=== PATIENT | female | born 1960 | race American Indian/Alaskan Native ===

== ENCOUNTER 2016-11-06 11:50 | Emergency (ER) | payer OTHER ==
[2016-11-06] MEDS ORDERED: Ketorolac 60 MG/2 ML SDV IM ONE (12:06)
[2016-11-06 12:09] VITALS: BP 165/88
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
== END 2016-11-06 13:15 | disposition home or self-care (01) ==
LOC: MW.ED 11:50
DX: M54.2 Cervicalgia (principal); R51 Headache; I10 Essential (primary) hypertension; F17.210 Nicotine dependence, cigarettes, uncomplicated; Z79.899 Other long term (current) drug therapy
CPT/HCPCS: 70450; 72125; 96372; 99283; J1885; 99284

== ENCOUNTER 2017-02-04 14:55 | Emergency (ER) | payer SELFPAY ==
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
[2017-02-04] MEDS ORDERED: Sodium Chloride 0.9% 1,000 ML IV ONE (15:04)
[2017-02-04 15:35] LABS: CHLORIDE,CL 110 mmol/L (98-110); SODIUM,NA 142 mmol/L (136-146)
[2017-02-04 17:23] VITALS: BP 104/57
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
== END 2017-02-04 17:23 | disposition home or self-care (01) ==
LOC: MW.ED 14:55
DX: S20.212A Contusion of left front wall of thorax, initial encounter (principal); I10 Essential (primary) hypertension; F32.9 Major depressive disorder, single episode, unspecified; Z98.890 Other specified postprocedural states; Z79.899 Other long term (current) drug therapy; W50.1XXA Accidental kick by another person, initial encounter
CPT/HCPCS: 36415; 70450; 71101; 80053; 84703; 85025; 96360; 99285; G0480; J7040; 99284

== ENCOUNTER 2019-12-19 08:16 | Emergency (ER) | payer OTHER ==
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
[2019-12-19] MEDS ORDERED: Sodium Chloride 0.9% 1,000 ML IV ONE (08:50)
[2019-12-19] MEDS ORDERED: Morphine 10 MG/ML Syringe IVPUSH ONE (08:59)
[2019-12-19] MEDS ORDERED: Ondansetron 4 MG/2 ML SDV IVPUSH ONE (08:59)
[2019-12-19 09:55] LABS: BLOOD UREA NITROGEN,BUN 8 mg/dL (7.0-18.0); CARBON DIOXIDE,CO2 23.1 mmol/L (21.0-32.0); CHLORIDE,CL 104 mmol/L (98-107); GLUCOSE RANDOM 96 mg/dL (74-106); POTASSIUM,K 4.1 mmol/L (3.5-5.1); SODIUM,NA 138 mmol/L (136-145)
[2019-12-19] MEDS ORDERED: Iopamidol 755 Mg/ML 100 ML Bottle IVPUSH STA (10:33)
--- NOTE | 2019-12-19 10:56 | CT ---
CT chest Technique: Multiple axial sections through the chest were obtained. Reconstructed coronal and sagittal images were obtained. Intravenous contrast was utilized. Comparison: No prior chest imaging. Findings: Aorta shows contrast enhancement with no aneurysm. Pulmonary arteries appear within normal limits. Mediastinum shows no hematoma. No adenopathy is seen. No pericardial fluid is seen. No pulmonary contusions are seen. Small nodule is noted within the right middle lobe measuring about 4 mm. Recommendations as noted above. Minimal dependent atelectasis is seen posteriorly. Bone window settings were reviewed. No definite acute abnormality is seen within the visualized bones. Impression: 1. 4 mm nodule within the right middle lobe. If patient is a non-smoker, this can be ignored. If patient is a smoker, recommend noncontrast chest CT study in one year. 2. Other findings as noted above. Nothing acute is appreciated. Diagnostic code #3 This report was dictated in MDT
--- NOTE | 2019-12-19 10:56 | CT ---
CT abdomen and pelvis Technique: Multiple axial sections were obtained from above the dome of the diaphragm inferiorly through the pubic symphysis. Intravenous contrast was utilized. No oral contrast has been given. Comparison: No prior abdominal imaging is available. Findings: Small nodule noted within the right middle lobe measuring 3 mm. Liver contains no focal abnormality. Spleen appears within normal limits. Adrenal glands show no abnormality. Pancreas appears within normal limits. Gallbladder contains no calcified gallstones. Kidneys show symmetric contrast enhancement. Small cyst is noted within the mid left kidney measuring 5 mm. Aorta shows no aneurysm. No retroperitoneal adenopathy or mesenteric abnormalities are seen. Appendix is seen which is normal. No pelvic mass or adenopathy is seen. No free fluid or inflammatory change is seen. Scattered diverticuli are seen within the colon. No inflammatory change of diverticulitis is seen. Bone window settings were reviewed. Slight degenerative change is noted within the spine. No acute osseous finding is appreciated. Impression: 1. Findings as noted above. 2. Nothing acute is appreciated on CT study of the abdomen and pelvis. Diagnostic code #2 This report was dictated in MDT
[2019-12-19 12:18] VITALS: BP 127/77; PULSE 84
== END 2019-12-19 12:15 | disposition home or self-care (01) ==
LOC: MW.ED 08:16
DX: S20.212A Contusion of left front wall of thorax, initial encounter (principal); I10 Essential (primary) hypertension; F32.9 Major depressive disorder, single episode, unspecified; F17.210 Nicotine dependence, cigarettes, uncomplicated; Z79.899 Other long term (current) drug therapy; Y04.2XXA Assault by strike against or bumped into by another person, initial encounter
CPT/HCPCS: 36415; 71260; 74177; 80053; 84484; 85025; 93005; 96374; 96375; 99284; J2270; J2405; J7030; Q9967; 99283

== ENCOUNTER 2020-03-14 00:17 | Emergency (ER) | payer SELFPAY ==
--- NOTE | 2020-03-14 01:05 | EDM.PDOCBH ---
ED HPI GENERAL MEDICAL PROBLEM - General Chief Complaint: Behavioral/Psych Stated Complaint: SHORT OF BREATH Time Seen by Provider: 03/14/20 01:04 Source of Information: Reports: Patient, EMS History Limitations: Reports: Intoxication - History of Present Illness INITIAL COMMENTS - FREE TEXT/NARRATIVE: 59F presents for EtOH intox and possible SI. Patient is intoxicated. She admits to heavy drinking tonight. Recent d/c [facility] for SI. She states that she does have thoughts of hurting herself but denies plan. Onset: Today - Related Data Allergies Allergy/AdvReac Type Severity Reaction Status Date / Time No Known Allergies Allergy Verified 03/14/20 00:27 Home Meds: Home Meds FLUoxetine [PROzac] 20 mg PO DAILY 05/01/16 [History] Lisinopril 10 mg PO DAILY 11/06/16 [History] Meloxicam 7.5 mg PO BID #20 tablet 11/06/16 [Rx] Multivitamin [Multivitamins] 11/06/16 [History] Orphenadrine [Norflex] 100 mg PO BID #20 tab.er 11/06/16 [Rx] methocarbamoL [Robaxin] 500 mg PO TID #20 tablet 12/19/19 [Rx] Past Medical History HEENT History: Reports: None Cardiovascular History: Reports: Hypertension Respiratory History: Reports: None Gastrointestinal History: Reports: None Genitourinary History: Reports: None 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: 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 History: Reports: Fracture, None Neurological History: Reports: None Psychiatric History: Reports: Depression, None Endocrine/Metabolic History: Reports: None Hematologic History: Reports: None Immunologic History: Reports: None Oncologic (Cancer) History: Reports: None Dermatologic History: Reports: None - Infectious Disease History Infectious Disease History: Reports: Chicken Pox - Past Surgical History Head Surgeries/Procedures: Reports: None HEENT Surgical History: Reports: None, Tonsillectomy Female Surgical History: Reports: Section 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 Surgical History: Reports: Other (See Below), ORIF Other 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 Surgeries/Procedures:: left ankle Social & Family History - Family History Family Medical History: Noncontributory - Caffeine Use Caffeine Use: Reports: Coffee ED ROS GENERAL - Review of Systems Review Of Systems: Comprehensive ROS is negative, except as noted in HPI. ED EXAM, BEHAVIORAL HEALTH - Physical Exam Exam: See Below Exam Limited By: Intoxication General Appearance: Alert, No Apparent Distress Head: Atraumatic Respiratory/Chest: No Respiratory Distress, Lungs Clear, Normal Breath Sounds, No Accessory Muscle Use, Chest Non-Tender, Other (speaking in full sentences) Cardiovascular: Normal Peripheral Pulses, Regular Rate, Rhythm GI/Abdominal: Soft, Non-Tender Extremities: Normal Inspection Neurological: Alert, Normal Mood/Affect Psychiatric: Alert, Normal Affect Skin Exam: Warm, Dry COURSE, BEHAVIORAL HEALTH COMP - Course Vital Signs: Last Vital Signs Temp 96.9 F 03/14/20 00:28 Pulse 94 03/14/20 00:28 Resp 16 03/14/20 00:28 BP 164/86 H 03/14/20 00:28 Pulse Ox 94 L 03/14/20 00:28 Orders, Labs, Meds: Medications Discontinued Medications Generic Name Dose Route Start Last Admin Trade Name Freq PRN Reason Stop Dose Admin Ibuprofen 600 mg 03/14/20 01:46 03/14/20 01:51 Motrin PO 03/14/20 01:47 600 mg ONETIME ONE Administration Re-Assessment/Re-Exam: 0230: patient is clinically improving, walks without gait abnormality. She states she wants to go home. She notes that she drank heavily and thinks this may have caused her to say "silly things" when she was drunk, but currently denies wanting to hurt herself and denies SI. She agrees to go home in hte care of her daughter. She is reasonable and was encouraged to return to ED for any thoughts of self harm. Departure - Departure Time of Disposition: 02:31 Disposition: Home, Self-Care 01 Condition: Good Clinical Impression: Alcohol intoxication Qualifiers: Complication of substance-induced condition: uncomplicated Qualified Code(s): F10.920 - Alcohol use, unspecified with intoxication, uncomplicated - Discharge Information *PRESCRIPTION DRUG MONITORING PROGRAM REVIEWED*: Not Applicable *COPY OF PRESCRIPTION DRUG MONITORING REPORT IN PATIENT OSCAR: Not Applicable Instructions: Binge-Drinking Information, Adult Referrals: PCP,None [Primary Care Provider] - ([facility] [address] [place] [id number] ) Forms: ED Department Discharge Additional Instructions: The following information is given to patients seen in the emergency department who are being discharged to home. This information is to outline your options for follow-up care. We provide all patients seen in our emergency department with a follow-up referral. The need for follow-up, as well as the timing and circumstances, are variable depending upon the specifics of your emergency department visit. If you don't have a primary care physician on staff, we will provide you with a referral. We always advise you to contact your personal physician following an emergency department visit to inform them of the circumstance of the visit and for follow-up with them and/or the need for any referrals to a consulting specialist. The emergency department will also refer you to a specialist when appropriate. This referral assures that you have the opportunity for follow-up care with a specialist. All of these measure are taken in an effort to provide you with optimal care, which includes your follow-up. Under all circumstances we always encourage you to contact your private physician who remains a resource for coordinating your care. When calling for follow-up care, please make the office aware that this follow-up is from your recent emergency room visit. If for any reason you are refused follow-up, please contact the [facility] Emergency Department at and asked to speak to the emergency department charge nurse. Sepsis Event Note (ED) - Evaluation Sepsis Screening Result: No Definite Risk - Focused Exam Vital Signs: Vital Signs Temp Pulse Resp BP Pulse Ox 03/14/20 00:28 96.9 F 94 16 164/86 H 94 L
[2020-03-14] MEDS ORDERED: Ibuprofen 600 MG Tab PO ONE (01:46)
[2020-03-14 03:13] VITALS: BP 165/75; PULSE 53
== END 2020-03-14 02:45 | disposition home or self-care (01) ==
LOC: MW.ED 00:17
DX: F10.120 Alcohol abuse with intoxication, uncomplicated (principal); I10 Essential (primary) hypertension; F32.9 Major depressive disorder, single episode, unspecified; Z79.899 Other long term (current) drug therapy
CPT/HCPCS: 99285; A9270; 99283

== ENCOUNTER 2020-07-14 08:29 | Observation (INO) | payer SELFPAY ==
[2020-07-14] MEDS ORDERED: Lactated Ringers 1,000 ML IV ONE (08:43)
[2020-07-14] MEDS ORDERED: Sodium Chloride 0.9% 2.5 ML Syringe FLUSH PRN (08:43)
[2020-07-14] MEDS ORDERED: Ondansetron 4 MG/2 ML SDV IVPUSH ONE (08:46)
--- NOTE | 2020-07-14 08:46 | EDM.PDOC ---
ED HPI GENERAL MEDICAL PROBLEM - General Chief Complaint: Abdominal Pain Stated Complaint: VOMITTING, NAUSEA Time Seen by Provider: 07/14/20 08:42 Source of Information: Reports: Patient History Limitations: Reports: No Limitations - History of Present Illness INITIAL COMMENTS - FREE TEXT/NARRATIVE: 59-year-old female presents with nonbilious vomiting and diarrhea since 10pm la st night. Associated with abdominal pain. Her abdominal pain is diffuse, constant, aching sensation, radiates to the back, no alleviating or exacerbating factors. She also notes dry cough for 2 weeks, along with fevers, chills, diffuse myalgia, generalized malaise. Patient denies chest pain, shortness of breath, focal numbness or weakness. ROS: A 10-point review of systems, other than pertinent positives and negatives as stated per HPI, is otherwise negative Past medical history: No additional pertinent history Past Surgical history: No additional pertinent history Social history: No additional pertinent history Family history: No additional pertinent history PHYSICAL EXAM General: AOx4, GCS = 15, moderate distress HEENT: dry mucous membrane Neck: supple, no meningismus, no Kernig or Brudzinski Cardiac: S1S2 tachycardia Respiratory: CTAB, no crackles or rales, no wheezing Abdomen: Soft, mild diffuse tenderness, no rebound or guarding, nondistended, no pulsatile mass. Back: nontender 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: NVI distally, no deformity Neuro: No focal deficits, CN 2 - 12 WNL. 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: 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 History: Reports: Fracture, None Neurological History: Reports: None Psychiatric History: Reports: Depression, None Endocrine/Metabolic History: Reports: None Hematologic History: Reports: None Immunologic History: Reports: None Oncologic (Cancer) History: Reports: None Dermatologic History: Reports: None - Infectious Disease History Infectious Disease History: Reports: Chicken Pox - Past Surgical History Head Surgeries/Procedures: Reports: None HEENT Surgical History: Reports: None, Tonsillectomy Female Surgical History: Reports: Section 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 Surgical History: Reports: Other (See Below), ORIF Other 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 Surgeries/Procedures:: left ankle Social & Family History - Family History Family Medical History: No Pertinent Family History - Caffeine Use Caffeine Use: Reports: Coffee ED ROS GENERAL - Review of Systems Review Of Systems: See Below (see dictation) ED EXAM, GENERAL - Physical Exam Exam: See Below (see dictation) #1 Interpretation EKG Interpretation Comments: Heart rate = 101 bpm, sinus tach, normal QRS interval, no STEMI. EKG and rhythm strip interpreted by me at 0839 Course - Vital Signs Last Recorded V/S: Last Vital Signs Temp 95.5 F L 07/14/20 08:33 Pulse 89 07/14/20 10:07 Resp 17 07/14/20 10:07 BP 130/69 07/14/20 10:07 Pulse Ox 95 07/14/20 10:07 - Orders/Labs/Meds Orders: Active Orders 24 hr Category Date Time Status Patient Status [ADT] Routine ADT 07/14/20 11:34 Ordered Nurse Communication: Isolation [RC] ASDIRECTED Care 07/14/20 10:37 Active C-REACTIVE PROTEIN [CHEM] Stat Lab 07/14/20 11:05 Received D-DIMER QUANTITATIVE [COAG] Stat Lab 07/14/20 11:05 Received FERRITIN [CHEM] Routine Lab 07/14/20 11:05 Received LACTATE DEHYDROGENASE,LDH [CHEM] Stat Lab 07/14/20 11:05 Received PROCALCITONIN [REF] Stat Lab 07/14/20 11:05 Received URINALYSIS W/MICROSCOPIC [UA W/MICROSCOPIC] [URIN] Stat Lab 07/14/20 11:11 Received Piperacillin/Tazobactam [Piperacil-Tazobact] 4.5 gm Med 07/14/20 10:47 Active Sodium Chloride 0.9% [Normal Saline] 100 ml IV ONETIME Sodium Chloride 0.9% [Saline Flush] Med 07/14/20 08:43 Active 10 ml FLUSH ASDIRECTED PRN Sodium Chloride 0.9% [Saline Flush] Med 07/14/20 08:43 Active 2.5 ml FLUSH ASDIRECTED PRN Vancomycin [Vancocin] 1 gm Med 07/14/20 11:00 Active Sodium Chloride 0.9% [Normal Saline (AdvBag)] 250 ml IV Q12H Isolation [COMM] Stat Oth 07/14/20 10:35 Active Saline Lock Insert [OM.PC] Stat Oth 07/14/20 08:43 Ordered Medication Orders Piperacillin Sod/Tazobactam (Sod 4.5 gm/ Sodium Chloride) 100 mls @ 100 mls/hr IV ONETIME ONE Stop: 07/14/20 11:46 Last Admin: 07/14/20 11:34 Dose: 100 mls/hr Documented by: TERRY Vancomycin HCl 1 gm/ Sodium (Chloride) 250 mls @ 250 mls/hr IV Q12H TAM Sodium Chloride (Saline Flush) 2.5 ml FLUSH ASDIRECTED PRN PRN Reason: Keep Vein Open Sodium Chloride (Saline Flush) 10 ml FLUSH ASDIRECTED PRN PRN Reason: Keep Vein Open Last Admin: 07/14/20 08:56 Dose: 10 ml Documented by: Admin: 07/14/20 08:55 Dose: 10 ml Documented by: TERRY Labs: Laboratory Tests 07/14/20 07/14/20 07/14/20 Range/Units 08:50 08:50 08:50 WBC 7.79 (4.0-11.0) K/uL RBC 5.07 (4.30-5.90) M/uL Hgb 16.6 H (12.0-16.0) g/dL Hct 47.9 H (36.0-46.0) % MCV 94.5 (80.0-98.0) fL MCH 32.7 H (27.0-32.0) pg MCHC 34.7 (31.0-37.0) g/dL RDW Std Deviation 43.2 (28.0-62.0) fl RDW Coeff of Nacho 13 (11.0-15.0) % Plt Count 183 (150-400) K/uL MPV 10.90 (7.40-12.00) fL Neut % (Auto) 66.8 (48.0-80.0) % Lymph % (Auto) 23.1 (16.0-40.0) % [place] % (Auto) 8.3 (0.0-15.0) % Eos % (Auto) 1.4 (0.0-7.0) % Baso % (Auto) 0.4 (0.0-1.5) % Neut # (Auto) 5.2 (1.4-5.7) K/uL Lymph # (Auto) 1.8 (0.6-2.4) K/uL [place] # (Auto) 0.7 (0.0-0.8) K/uL Eos # (Auto) 0.1 (0.0-0.7) K/uL Baso # (Auto) 0.0 (0.0-0.1) K/uL Nucleated RBC % 0.0 /100WBC Nucleated RBCs # 0 K/uL INR APTT (18.6-31.3) SEC Lactate (0.20-2.00) mmol/L Sodium 134 L (136-145) mmol/L Potassium 3.8 (3.5-5.1) mmol/L Chloride 100 (98-107) mmol/L Carbon Dioxide 18.2 L (21.0-32.0) mmol/L BUN 8 (7.0-18.0) mg/dL Creatinine 0.7 (0.6-1.0) mg/dL Est Cr Clr Drug Dosing 66.91 mL/min Estimated GFR (MDRD) > 60.0 ml/min Glucose 126 H (74-106) mg/dL Calcium 9.7 (8.5-10.1) mg/dL Magnesium 2.2 (1.8-2.4) mg/dL Total Bilirubin 1.0 (0.2-1.0) mg/dL AST 30 (15-37) IU/L ALT 30 (14-63) IU/L Alkaline Phosphatase 165 H (46-116) U/L Troponin I < 0.050 (0.000-0.056) ng/mL Total Protein 8.2 (6.4-8.2) g/dL Albumin 3.4 (3.4-5.0) g/dL Globulin 4.8 H (2.6-4.0) g/dL Albumin/Globulin Ratio 0.7 L (0.9-1.6) Lipase 83 (73-393) U/L SARS-CoV-2 RNA (GALINDO) (NEGATIVE) 07/14/20 07/14/20 07/14/20 Range/Units 09:04 11:05 11:05 WBC (4.0-11.0) K/uL RBC (4.30-5.90) M/uL Hgb (12.0-16.0) g/dL Hct (36.0-46.0) % MCV (80.0-98.0) fL MCH (27.0-32.0) pg MCHC (31.0-37.0) g/dL RDW Std Deviation (28.0-62.0) fl RDW Coeff of Nacho (11.0-15.0) % Plt Count (150-400) K/uL MPV (7.40-12.00) fL Neut % (Auto) (48.0-80.0) % Lymph % (Auto) (16.0-40.0) % [place] % (Auto) (0.0-15.0) % Eos % (Auto) (0.0-7.0) % Baso % (Auto) (0.0-1.5) % Neut # (Auto) (1.4-5.7) K/uL Lymph # (Auto) (0.6-2.4) K/uL [place] # (Auto) (0.0-0.8) K/uL Eos # (Auto) (0.0-0.7) K/uL Baso # (Auto) (0.0-0.1) K/uL Nucleated RBC % /100WBC Nucleated RBCs # K/uL INR 1.00 APTT 27.8 (18.6-31.3) SEC Lactate 1.0 (0.20-2.00) mmol/L Sodium (136-145) mmol/L Potassium (3.5-5.1) mmol/L Chloride (98-107) mmol/L Carbon Dioxide (21.0-32.0) mmol/L BUN (7.0-18.0) mg/dL Creatinine (0.6-1.0) mg/dL Est Cr Clr Drug Dosing mL/min Estimated GFR (MDRD) ml/min Glucose (74-106) mg/dL Calcium (8.5-10.1) mg/dL Magnesium (1.8-2.4) mg/dL Total Bilirubin (0.2-1.0) mg/dL AST (15-37) IU/L ALT (14-63) IU/L Alkaline Phosphatase (46-116) U/L Troponin I (0.000-0.056) ng/mL Total Protein (6.4-8.2) g/dL Albumin (3.4-5.0) g/dL Globulin (2.6-4.0) g/dL Albumin/Globulin Ratio (0.9-1.6) Lipase (73-393) U/L SARS-CoV-2 RNA (GALINDO) POSITIVE H (NEGATIVE) Meds: Medications Generic Name Dose Route Start Last Admin Trade Name Freq PRN Reason Stop Dose Admin Piperacillin Sod/Tazobactam 100 mls @ 100 mls/hr 07/14/20 10:47 07/14/20 11:34 Sod 4.5 gm/ Sodium Chloride IV 07/14/20 11:46 100 mls/hr ONETIME ONE Administration Vancomycin HCl 1 gm/ Sodium 250 mls @ 250 mls/hr 07/14/20 11:00 Chloride IV Q12H TAM Sodium Chloride 2.5 ml 07/14/20 08:43 Saline Flush FLUSH ASDIRECTED PRN Keep Vein Open Sodium Chloride 10 ml 07/14/20 08:43 07/14/20 08:56 Saline Flush FLUSH 10 ml ASDIRECTED PRN Administration Keep Vein Open Discontinued Medications Generic Name Dose Route Start Last Admin Trade Name Freq PRN Reason Stop Dose Admin Fentanyl 50 mcg 07/14/20 09:02 07/14/20 09:06 Fentanyl IVPUSH 07/14/20 09:03 50 mcg ONETIME ONE Administration Lactated Ringer's 1,000 mls @ 999 mls/hr 07/14/20 08:43 07/14/20 08:55 Ringers, Lactated IV 07/14/20 09:43 999 mls/hr .BOLUS ONE Administration Ondansetron HCl 4 mg 07/14/20 08:46 07/14/20 08:55 Zofran IVPUSH 07/14/20 08:47 4 mg ONETIME ONE Administration Vancomycin HCl 1 dose 07/14/20 10:47 Pharmacy To Dose - Vancomycin .XX 07/14/20 10:48 ONETIME ONE - Re-Assessments/Exams Free Text/Narrative Re-Assessment/Exam: 07/14/20 10:[address] Strong, she has a low suspicion for appendicitis but will consult. She thinks the presentation is likely secondary to Covid enteritis. She still recommends IV Zosyn. Will order IV Zosyn. 07/14/20 11:[address] Kidd, who agrees to admit patient. The hospitalist's documentation supersedes all other documentation on this patient with regard to any conflicts or discrepancies from this point forward. Any emergency conditions have been treated to the ability of the ED prior to admission. Departure - Departure Time of Disposition: 11:34 Disposition: Admitted As Inpatient 68 Condition: Good Clinical Impression: COVID-19, Enteritis - Discharge Information *PRESCRIPTION DRUG MONITORING PROGRAM REVIEWED*: Not Applicable *COPY OF PRESCRIPTION DRUG MONITORING REPORT IN PATIENT OSCAR: Not Applicable Referrals: Nati Draper MD [Primary Care Provider] - Forms: ED Department Discharge Sepsis Event Note (ED) - Evaluation Sepsis Screening Result: No Definite Risk - Focused Exam Vital Signs: Vital Signs Temp Pulse Resp BP Pulse Ox 07/14/20 10:07 89 17 130/69 95 07/14/20 09:37 90 17 147/85 H 95 07/14/20 08:33 95.5 F L 108 H 18 118/77 96 - My Orders Last 24 Hours: My Active Orders 07/14/20 08:43 Sodium Chloride 0.9% [Saline Flush] 10 ml FLUSH ASDIRECTED PRN Sodium Chloride 0.9% [Saline Flush] 2.5 ml FLUSH ASDIRECTED PRN Saline Lock Insert [OM.PC] Stat 07/14/20 10:35 Isolation [COMM] Stat 07/14/20 10:37 Nurse Communication: Isolation [RC] ASDIRECTED 07/14/20 10:47 Piperacillin/Tazobactam [Piperacil-Tazobact] 4.5 gm Sodium Chloride 0.9% [Normal Saline] 100 ml IV ONETIME 07/14/20 11:00 Vancomycin [Vancocin] 1 gm Sodium Chloride 0.9% [Normal Saline (AdvBag)] 250 ml IV Q12H 07/14/20 11:05 C-REACTIVE PROTEIN [CHEM] Stat D-DIMER QUANTITATIVE [COAG] Stat FERRITIN [CHEM] Routine LACTATE DEHYDROGENASE,LDH [CHEM] Stat PROCALCITONIN [REF] Stat 07/14/20 11:11 URINALYSIS W/MICROSCOPIC [UA W/MICROSCOPIC] [URIN] Stat 07/14/20 11:34 Patient Status [ADT] Routine - Assessment/Plan Last 24 Hours: My Active Orders 07/14/20 08:43 Sodium Chloride 0.9% [Saline Flush] 10 ml FLUSH ASDIRECTED PRN Sodium Chloride 0.9% [Saline Flush] 2.5 ml FLUSH ASDIRECTED PRN Saline Lock Insert [OM.PC] Stat 07/14/20 10:35 Isolation [COMM] Stat 07/14/20 10:37 Nurse Communication: Isolation [RC] ASDIRECTED 07/14/20 10:47 Piperacillin/Tazobactam [Piperacil-Tazobact] 4.5 gm Sodium Chloride 0.9% [Normal Saline] 100 ml IV ONETIME 07/14/20 11:00 Vancomycin [Vancocin] 1 gm Sodium Chloride 0.9% [Normal Saline (AdvBag)] 250 ml IV Q12H 07/14/20 11:05 C-REACTIVE PROTEIN [CHEM] Stat D-DIMER QUANTITATIVE [COAG] Stat FERRITIN [CHEM] Routine LACTATE DEHYDROGENASE,LDH [CHEM] Stat PROCALCITONIN [REF] Stat 07/14/20 11:11 URINALYSIS W/MICROSCOPIC [UA W/MICROSCOPIC] [URIN] Stat 07/14/20 11:34 Patient Status [ADT] Routine
[2020-07-14] MEDS: Sodium Chloride 0.9% 10 ML Syringe FLUSH PRN ×2 (08:55→08:56)
[2020-07-14] MEDS ORDERED: fentaNYL 50 MCG/ML SDV IVPUSH ONE ×2 (09:02→11:45)
[2020-07-14 09:25] LABS: BLOOD UREA NITROGEN,BUN 8 mg/dL (7.0-18.0); CARBON DIOXIDE,CO2 18.2 mmol/L (21.0-32.0); CHLORIDE,CL 100 mmol/L (98-107); GLUCOSE RANDOM 126 mg/dL (74-106); LIPASE 83 U/L (73-393); POTASSIUM,K 3.8 mmol/L (3.5-5.1); SODIUM,NA 134 mmol/L (136-145)
--- NOTE | 2020-07-14 10:23 | CT ---
INDICATION: Abdominal pain, nausea, vomiting and diarrhea. Probable COVID COMPARISON: None TECHNIQUE: CT examination of the abdomen and pelvis was performed without intravenous contrast. Thin section axial images were obtained from the lung bases through the pubic symphysis. Oral contrast was not administered. Please note that all CT scans at this facility use dose modulation, iterative reconstruction, and/or weight-based dosing when appropriate to reduce radiation dose to as low as reasonably achievable. FINDINGS: LUNG BASES: Patchy multifocal ground-glass opacities. The findings are likely related to COVID lung disease.Heart size normal. The lung bases LIVER/BILIARY SYSTEM:The liver is normal in size and configuration given the lack of intravenous contrast. There is no visible focal mass and there is no intra- or extra hepatic biliary ductal dilatation.The gall bladder appears normal. ADRENALS: Normal non-contrast appearance KIDNEYS, URETERS and BLADDER:The kidneys appear normal given lack of intravenous contrast. No visible mass, calculus or hydronephrosis. The ureters and bladder as visualized appear normal. SPLEEN:Normal non-contrast appearance. PANCREAS: Normal non-contrast appearance. RETROPERITONEUM and MESENTERY: There is no mass, adenopathy or aortic aneurysm. GASTROINTESTINAL SYSTEM: There is no evidence of bowel obstruction. There is thickening of much of the ileum with streaky inflammatory changes in the mesentery. There is also thickening and inflammatory change of the terminal ileum. The findings represent ileitis of uncertain etiology. This could be related to Crohn`s disease though involvement of such a large portion of the ileum is unusual. As a separate finding, the appendix appears normal at the base but is thickened more distally. The bases best seen on axial image number 84 and 85 and the tip that appears dilated is best seen on axial image 89 through 95. This could represent appendicitis as well. PELVIS: There is moderate free fluid which is presumably secondary to the ileal inflammatory process primarily.. OSSEOUS STRUCTURES and ABDOMINAL WALL: There is an age-appropriate appearance of the osseous structures.No significant abdominal wall defect. OTHER: No free fluid or free air. IMPRESSION: 1. Chest pains findings likely related to COVID lung disease. 2. Long segment ileal inflammatory process. This most affects the terminal ileum. While this is an ileitis pattern, the long segment disease is somewhat unusual for Crohn`s disease. The exact underlying etiology is uncertain. 3. As a 3rd finding, there are findings suspicious for acute uncomplicated appendicitis as discussed above. 4. I discussed the above findings at 10:15 a.m. on July 14, [address] Abdon Lozano Please note that all CT scans at this facility use dose modulation, iterative reconstruction, and/or weight-based dosing when appropriate to reduce radiation dose to as low as reasonably achievable. Dictated by David Gallegos MD @ Jul 14 2020 10:07AM Signed by Dr. David Gallegos @ Jul 14 2020 10:20AM
--- NOTE | 2020-07-14 10:33 | CR ---
Indication: Abdominal pain, nausea, vomiting and cough. Technique: A single view of the chest was acquired Comparison: A chest radiograph dated January 08, 2017 as well as the abdomen and pelvic CT of the same day. Findings: Heart size normal. Patchy airspace opacities primarily laterally at the left base. This corresponds to the CT and is likely due to COVID related lung disease. No pleural effusion or pneumothorax. Old right clavicle fracture Impression: Airspace opacities primarily laterally at the left base likely related to COVID lung disease. This appearance was also noted on a contemporaneously CT. Dictated by David Gallegos MD @ Jul 14 2020 10:30AM Signed by Dr. David Gallegos @ Jul 14 2020 10:32AM
[2020-07-14] MEDS ORDERED: Piperacillin/Tazobactam 4.5 GM in Sodium Chloride 0.9% 100 ML IV ONE (10:47)
[2020-07-14] MEDS ORDERED: fentaNYL 50 MCG/ML SDV ONE (11:45)
--- NOTE | 2020-07-14 11:47 | PCM.HP.2 ---
<Leonard Mei - Last Filed: 07/14/20 15:28> H&P History of Present Illness - General Date of Service: 07/14/20 Admit Problem/Dx: Admission Diagnosis/Problem Admission Diagnosis/Problem Enteritis - History of Present Illness Initial Comments - Free Text/Narative: 59 year old female admitted for enteritis. Patient presented to the ED today with abdominal pain, nausea, vomiting and diarrhea. Patient states that she developed crampy sharp pains across her abdomen yesterday evening. She also has been having bouts of diarrhea, and states bright red blood per rectum with bowel movements. Denies fever, chills states general fatigue and a productive cough. Patient has been in contact with her daughter and ex- both of whom are Covid positive. Patient states past medical history of hypertension. Patient is a 1 to 2 pack/week smoker. WBC on admission 7.7, with elevated ferritin and CRP. Patient is COVID positive. CT abdomen pelvis was performed that showed Inflammation of the terminal ileum, with possible uncomplicated appendicitis. Patient treated with IV fluids, vancomycin, Zosyn, currently n.p.o. will advance diet as tolerated, full dose Lovenox 65 mg BID, PPI, encourage incentive spirometry. Patient is currently at 96% oxygen saturation on room air and thus does not require remdesivir and dexamethasone. We will adjust treatment as necessary based on patient symptoms. abdomen Pain Score (Numeric/FACES): 5 - Related Data Allergies/Adverse Reactions: Allergies Allergy/AdvReac Type Severity Reaction Status Date / Time codeine Allergy Hives Verified 07/14/20 13:35 oxycodone Allergy Hives Verified 07/14/20 13:35 Home Medications: Home Meds Enalapril Maleate 20 mg PO DAILY 07/14/20 [History] Past Medical History HEENT History: Reports: None Cardiovascular History: Reports: Hypertension Respiratory History: Reports: None Gastrointestinal History: Reports: None Genitourinary History: Reports: None I O PSYCHOLOGIST History: Reports: 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 History: Reports: Fracture Neurological History: Reports: None Psychiatric History: Reports: Depression Endocrine/Metabolic History: Reports: None Hematologic History: Reports: None Immunologic History: Reports: None Oncologic (Cancer) History: Reports: None Dermatologic History: Reports: None - Infectious Disease History Infectious Disease History: Reports: Chicken Pox, Shingles - Past Surgical History Head Surgeries/Procedures: Reports: None HEENT Surgical History: Reports: None, Tonsillectomy Female Surgical History: Reports: Section 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 Surgical History: Reports: Other (See Below), ORIF Other 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 Surgeries/Procedures:: left ankle Social & Family History - Family History Family Medical History: No Pertinent Family History - Tobacco Use Tobacco Use Status *Q: Current Every Day Tobacco User Years of Tobacco use: 1 Packs/Tins Daily: 2 - Caffeine Use Caffeine Use: Reports: Coffee - Recreational Drug Use Recreational Drug Use: No H&P Review of Systems - Review of Systems: Review Of Systems: See Below General: Reports: Weakness, Fatigue. Denies: Fever Pulmonary: Reports: Cough. Denies: Shortness of Breath, Wheezing Cardiovascular: Denies: Chest Pain Gastrointestinal: Reports: Abdominal Pain, Decreased Appetite. Denies: Nausea, Vomiting 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: Denies: Back Pain Psychiatric: Denies: Confusion, Depression Neurological: Denies: Confusion, Dizziness Exam - Exam Exam: See Below - Vital Signs Vital Signs: Last Vital Signs Temp 95.5 F L 07/14/20 08:33 Pulse 89 07/14/20 10:07 Resp 17 07/14/20 10:07 BP 130/69 07/14/20 10:07 Pulse Ox 95 07/14/20 10:07 Weight: 65 kg - Exam Quality Assessment: No: Supplemental Oxygen General: Oriented Lungs: Clear to Auscultation, Normal Respiratory Effort Cardiovascular: Regular Rate, Regular Rhythm GI/Abdominal Exam: Normal Bowel Sounds, Soft, Tender Extremities: No Pedal Edema Neuro Extensive - Mental Status: Alert, Oriented x3 - Patient Data Lab Results Last 24 hrs: Laboratory Results - last 24 hr 07/14/20 07/14/20 07/14/20 Range/Units 08:50 08:50 08:50 WBC 7.79 (4.0-11.0) K/uL RBC 5.07 (4.30-5.90) M/uL Hgb 16.6 H (12.0-16.0) g/dL Hct 47.9 H (36.0-46.0) % MCV 94.5 (80.0-98.0) fL MCH 32.7 H (27.0-32.0) pg MCHC 34.7 (31.0-37.0) g/dL RDW Std Deviation 43.2 (28.0-62.0) fl RDW Coeff of Nacho 13 (11.0-15.0) % Plt Count 183 (150-400) K/uL MPV 10.90 (7.40-12.00) fL Neut % (Auto) 66.8 (48.0-80.0) % Lymph % (Auto) 23.1 (16.0-40.0) % [place] % (Auto) 8.3 (0.0-15.0) % Eos % (Auto) 1.4 (0.0-7.0) % Baso % (Auto) 0.4 (0.0-1.5) % Neut # (Auto) 5.2 (1.4-5.7) K/uL Lymph # (Auto) 1.8 (0.6-2.4) K/uL [place] # (Auto) 0.7 (0.0-0.8) K/uL Eos # (Auto) 0.1 (0.0-0.7) K/uL Baso # (Auto) 0.0 (0.0-0.1) K/uL Nucleated RBC % 0.0 /100WBC Nucleated RBCs # 0 K/uL INR APTT (18.6-31.3) SEC Lactate (0.20-2.00) mmol/L Sodium 134 L (136-145) mmol/L Potassium 3.8 (3.5-5.1) mmol/L Chloride 100 (98-107) mmol/L Carbon Dioxide 18.2 L (21.0-32.0) mmol/L BUN 8 (7.0-18.0) mg/dL Creatinine 0.7 (0.6-1.0) mg/dL Est Cr Clr Drug Dosing 66.91 mL/min Estimated GFR (MDRD) > 60.0 ml/min Glucose 126 H (74-106) mg/dL Calcium 9.7 (8.5-10.1) mg/dL Magnesium 2.2 (1.8-2.4) mg/dL Total Bilirubin 1.0 (0.2-1.0) mg/dL AST 30 (15-37) IU/L ALT 30 (14-63) IU/L Alkaline Phosphatase 165 H (46-116) U/L Troponin I < 0.050 (0.000-0.056) ng/mL Total Protein 8.2 (6.4-8.2) g/dL Albumin 3.4 (3.4-5.0) g/dL Globulin 4.8 H (2.6-4.0) g/dL Albumin/Globulin Ratio 0.7 L (0.9-1.6) Lipase 83 (73-393) U/L Urine Color Urine Appearance Urine pH (5.0-8.0) Ur Specific [place] (1.001-1.035) Urine Protein (NEGATIVE) mg/dL Urine Glucose (UA) (NEGATIVE) mg/dL Urine Ketones (NEGATIVE) mg/dL Urine Occult Blood (NEGATIVE) Urine Nitrite (NEGATIVE) Urine Bilirubin (NEGATIVE) Urine Urobilinogen (<2.0) EU/dL Ur Leukocyte Esterase (NEGATIVE) Urine RBC (0-2/HPF) Urine WBC (0-5/HPF) Ur Epithelial Cells (NONE-FEW) Urine Bacteria (NEGATIVE) Urine Mucus (NONE-MOD) SARS-CoV-2 RNA (GALINDO) (NEGATIVE) 07/14/20 07/14/20 07/14/20 Range/Units 09:04 11:05 11:05 WBC (4.0-11.0) K/uL RBC (4.30-5.90) M/uL Hgb (12.0-16.0) g/dL Hct (36.0-46.0) % MCV (80.0-98.0) fL MCH (27.0-32.0) pg MCHC (31.0-37.0) g/dL RDW Std Deviation (28.0-62.0) fl RDW Coeff of Nacho (11.0-15.0) % Plt Count (150-400) K/uL MPV (7.40-12.00) fL Neut % (Auto) (48.0-80.0) % Lymph % (Auto) (16.0-40.0) % [place] % (Auto) (0.0-15.0) % Eos % (Auto) (0.0-7.0) % Baso % (Auto) (0.0-1.5) % Neut # (Auto) (1.4-5.7) K/uL Lymph # (Auto) (0.6-2.4) K/uL [place] # (Auto) (0.0-0.8) K/uL Eos # (Auto) (0.0-0.7) K/uL Baso # (Auto) (0.0-0.1) K/uL Nucleated RBC % /100WBC Nucleated RBCs # K/uL INR 1.00 APTT 27.8 (18.6-31.3) SEC Lactate 1.0 (0.20-2.00) mmol/L Sodium (136-145) mmol/L Potassium (3.5-5.1) mmol/L Chloride (98-107) mmol/L Carbon Dioxide (21.0-32.0) mmol/L BUN (7.0-18.0) mg/dL Creatinine (0.6-1.0) mg/dL Est Cr Clr Drug Dosing mL/min Estimated GFR (MDRD) ml/min Glucose (74-106) mg/dL Calcium (8.5-10.1) mg/dL Magnesium (1.8-2.4) mg/dL Total Bilirubin (0.2-1.0) mg/dL AST (15-37) IU/L ALT (14-63) IU/L Alkaline Phosphatase (46-116) U/L Troponin I (0.000-0.056) ng/mL Total Protein (6.4-8.2) g/dL Albumin (3.4-5.0) g/dL Globulin (2.6-4.0) g/dL Albumin/Globulin Ratio (0.9-1.6) Lipase (73-393) U/L Urine Color Urine Appearance Urine pH (5.0-8.0) Ur Specific [place] (1.001-1.035) Urine Protein (NEGATIVE) mg/dL Urine Glucose (UA) (NEGATIVE) mg/dL Urine Ketones (NEGATIVE) mg/dL Urine Occult Blood (NEGATIVE) Urine Nitrite (NEGATIVE) Urine Bilirubin (NEGATIVE) Urine Urobilinogen (<2.0) EU/dL Ur Leukocyte Esterase (NEGATIVE) Urine RBC (0-2/HPF) Urine WBC (0-5/HPF) Ur Epithelial Cells (NONE-FEW) Urine Bacteria (NEGATIVE) Urine Mucus (NONE-MOD) SARS-CoV-2 RNA (GALINDO) POSITIVE H (NEGATIVE) 07/14/20 Range/Units 11:11 WBC (4.0-11.0) K/uL RBC (4.30-5.90) M/uL Hgb (12.0-16.0) g/dL Hct (36.0-46.0) % MCV (80.0-98.0) fL MCH (27.0-32.0) pg MCHC (31.0-37.0) g/dL RDW Std Deviation (28.0-62.0) fl RDW Coeff of Nacho (11.0-15.0) % Plt Count (150-400) K/uL MPV (7.40-12.00) fL Neut % (Auto) (48.0-80.0) % Lymph % (Auto) (16.0-40.0) % [place] % (Auto) (0.0-15.0) % Eos % (Auto) (0.0-7.0) % Baso % (Auto) (0.0-1.5) % Neut # (Auto) (1.4-5.7) K/uL Lymph # (Auto) (0.6-2.4) K/uL [place] # (Auto) (0.0-0.8) K/uL Eos # (Auto) (0.0-0.7) K/uL Baso # (Auto) (0.0-0.1) K/uL Nucleated RBC % /100WBC Nucleated RBCs # K/uL INR APTT (18.6-31.3) SEC Lactate (0.20-2.00) mmol/L Sodium (136-145) mmol/L Potassium (3.5-5.1) mmol/L Chloride (98-107) mmol/L Carbon Dioxide (21.0-32.0) mmol/L BUN (7.0-18.0) mg/dL Creatinine (0.6-1.0) mg/dL Est Cr Clr Drug Dosing mL/min Estimated GFR (MDRD) ml/min Glucose (74-106) mg/dL Calcium (8.5-10.1) mg/dL Magnesium (1.8-2.4) mg/dL Total Bilirubin (0.2-1.0) mg/dL AST (15-37) IU/L ALT (14-63) IU/L Alkaline Phosphatase (46-116) U/L Troponin I (0.000-0.056) ng/mL Total Protein (6.4-8.2) g/dL Albumin (3.4-5.0) g/dL Globulin (2.6-4.0) g/dL Albumin/Globulin Ratio (0.9-1.6) Lipase (73-393) U/L Urine Color DARK YELLOW Urine Appearance CLEAR Urine pH 6.5 (5.0-8.0) Ur Specific [place] 1.010 (1.001-1.035) Urine Protein NEGATIVE (NEGATIVE) mg/dL Urine Glucose (UA) NEGATIVE (NEGATIVE) mg/dL Urine Ketones TRACE H (NEGATIVE) mg/dL Urine Occult Blood NEGATIVE (NEGATIVE) Urine Nitrite NEGATIVE (NEGATIVE) Urine Bilirubin SMALL H (NEGATIVE) Urine Urobilinogen 0.2 (<2.0) EU/dL Ur Leukocyte Esterase TRACE H (NEGATIVE) Urine RBC 0-2 (0-2/HPF) Urine WBC 0-2 (0-5/HPF) Ur Epithelial Cells FEW (NONE-FEW) Urine Bacteria FEW (NEGATIVE) Urine Mucus LIGHT (NONE-MOD) SARS-CoV-2 RNA (GALINDO) (NEGATIVE) Result Diagrams: 07/14/20 08:50 07/14/20 08:50 Sepsis Event Note - Evaluation Sepsis Screening Result: No Definite Risk - Focused Exam Vital Signs: Vital Signs Temp Pulse Resp BP Pulse Ox 07/14/20 10:07 89 17 130/69 95 07/14/20 09:37 90 17 147/85 H 95 07/14/20 08:33 95.5 F L 108 H 18 118/77 96 - Problem List (1) COVID-19 SNOMED Code(s): 686792233 ICD Code: U07.1 - COVID-19 Status: Acute Current Visit: Yes (2) Enteritis SNOMED Code(s): 11383301 ICD Code: K52.9 - NONINFECTIVE GASTROENTERITIS AND COLITIS, UNSPECIFIED Status: Acute Current Visit: Yes (3) Right ankle sprain SNOMED Code(s): 46313676 Status: Acute Current Visit: No Problem List Initiated/Reviewed/Updated: Yes Orders Last 24hrs: Active Orders 24 hr Category Date Time Status Patient Status [ADT] Routine ADT 07/14/20 11:34 Active Nurse Communication: Isolation [RC] ASDIRECTED Care 07/14/20 10:37 Active NPO Now [Nothing per Oral Now Diet] [DIET] Diet 07/14/20 Lunch Ordered C-REACTIVE PROTEIN [CHEM] Stat Lab 07/14/20 11:05 Received D-DIMER QUANTITATIVE [COAG] Stat Lab 07/14/20 11:05 Received FERRITIN [CHEM] Routine Lab 07/14/20 11:05 Received LACTATE DEHYDROGENASE,LDH [CHEM] Stat Lab 07/14/20 11:05 Received PROCALCITONIN [REF] Stat Lab 07/14/20 11:05 Received Sodium Chloride 0.9% [Saline Flush] Med 07/14/20 08:43 Active 10 ml FLUSH ASDIRECTED PRN Sodium Chloride 0.9% [Saline Flush] Med 07/14/20 08:43 Active 2.5 ml FLUSH ASDIRECTED PRN Vancomycin [Vancocin] 1 gm Med 07/14/20 11:00 Active Sodium Chloride 0.9% [Normal Saline (AdvBag)] 250 ml IV Q12H Isolation [COMM] Stat Oth 07/14/20 10:35 Active Saline Lock Insert [OM.PC] Stat Oth 07/14/20 08:43 Ordered Medication Orders Vancomycin HCl 1 gm/ Sodium (Chloride) 250 mls @ 250 mls/hr IV Q12H TAM Sodium Chloride (Saline Flush) 2.5 ml FLUSH ASDIRECTED PRN PRN Reason: Keep Vein Open Last Admin: 07/14/20 11:38 Dose: 2.5 ml Documented by: TERRY Sodium Chloride (Saline Flush) 10 ml FLUSH ASDIRECTED PRN PRN Reason: Keep Vein Open Last Admin: 07/14/20 08:56 Dose: 10 ml Documented by: Admin: 07/14/20 08:55 Dose: 10 ml Documented by: TERRY Assessment/Plan Comment:: Enteritis- LR 125 mls/hr, vancomycin, Zosyn Q6, NPO, diet advanced as tolerated, full dose Lovenox 65 mg BID, PPI COVID-patient is currently 96% oxygen saturation on room air, thus does not require remdesivir, dexamethasone. Will adjust as needed based on patient's symptoms. We will continue to encourage incentive spirometry. <Marcello Kidd - Last Filed: 07/15/20 13:00> H&P History of Present Illness - General Admit Problem/Dx: Admission Diagnosis/Problem Admission Diagnosis/Problem Enteritis Exam - Vital Signs Vital Signs: Last Vital Signs Temp 36.6 C 07/15/20 08:59 Pulse 75 07/15/20 08:59 Resp 18 07/15/20 08:59 BP 121/62 07/15/20 08:59 Pulse Ox 94 L 07/15/20 08:59 - Patient Data Lab Results Last 24 hrs: Laboratory Results - last 24 hr 07/14/20 07/15/20 07/15/20 Range/Units 11:05 05:39 05:39 WBC 5.52 (4.0-11.0) K/uL RBC 3.82 L (4.30-5.90) M/uL Hgb 12.2 (12.0-16.0) g/dL Hct 37.1 (36.0-46.0) % MCV 97.1 (80.0-98.0) fL MCH 31.9 (27.0-32.0) pg MCHC 32.9 (31.0-37.0) g/dL RDW Std Deviation 44.3 (28.0-62.0) fl RDW Coeff of Nacho 13 (11.0-15.0) % Plt Count 171 (150-400) K/uL MPV 10.90 (7.40-12.00) fL Neut % (Auto) 54.5 (48.0-80.0) % Lymph % (Auto) 27.2 (16.0-40.0) % [place] % (Auto) 14.7 (0.0-15.0) % Eos % (Auto) 2.9 (0.0-7.0) % Baso % (Auto) 0.7 (0.0-1.5) % Neut # (Auto) 3.0 (1.4-5.7) K/uL Lymph # (Auto) 1.5 (0.6-2.4) K/uL [place] # (Auto) 0.8 (0.0-0.8) K/uL Eos # (Auto) 0.2 (0.0-0.7) K/uL Baso # (Auto) 0.0 (0.0-0.1) K/uL Nucleated RBC % 0.0 /100WBC Nucleated RBCs # 0 K/uL Sodium 140 (136-145) mmol/L Potassium 3.4 L (3.5-5.1) mmol/L Chloride 107 (98-107) mmol/L Carbon Dioxide 21.5 (21.0-32.0) mmol/L BUN 11 (7.0-18.0) mg/dL Creatinine 1.2 H (0.6-1.0) mg/dL Est Cr Clr Drug Dosing 39.03 mL/min Estimated GFR (MDRD) 46.3 ml/min Glucose 83 (74-106) mg/dL Calcium 8.2 L (8.5-10.1) mg/dL Total Bilirubin 0.9 (0.2-1.0) mg/dL AST 23 (15-37) IU/L ALT 21 (14-63) IU/L Alkaline Phosphatase 105 (46-116) U/L Total Protein 6.0 L (6.4-8.2) g/dL Albumin 2.4 L (3.4-5.0) g/dL Globulin 3.6 (2.6-4.0) g/dL Albumin/Globulin Ratio 0.7 L (0.9-1.6) Procalcitonin <0.05 (<0.10) ng/mL Result Diagrams: 07/15/20 05:39 07/15/20 05:39 Panfilo Results Last 24 hrs: Microbiology 07/15/20 00:10 C. difficile Antigen & Toxins A,B - Final Stool / Feces 07/15/20 00:10 Stool Occult Blood (PANFILO) - Final Stool / Feces Sepsis Event Note - Focused Exam Vital Signs: Vital Signs Temp Pulse Resp BP BP Pulse Ox 07/15/20 08:59 36.6 C 75 18 121/62 94 L 07/15/20 08:50 121/62 07/15/20 03:00 36.1 C 68 18 135/60 95 Orders Last 24hrs: Active Orders 24 hr Category Date Time Status Influenza Vaccine Charge [RC] .DISCHARGE Care 07/14/20 15:05 Active Oxygen Therapy [RC] PRN Care 07/14/20 13:00 Active VTE/DVT Education [RC] PER UNIT ROUTINE Care 07/14/20 13:00 Active Vital Signs [RC] Q4H Care 07/14/20 13:00 Active Clear Liquid Diet [DIET] Diet 07/15/20 Breakfast Active VANCOMYCIN TROUGH [CHEM] Routine Lab 07/17/20 00:01 Ordered Enalapril [Vasotec] Med 07/14/20 15:00 Active 20 mg PO DAILY Enoxaparin [Lovenox] Med 07/15/20 21:00 Active 40 mg SUBCUT BID Lactated Ringers [Ringers, Lactated] 1,000 ml Med 07/14/20 13:00 Active IV ASDIRECTED Morphine Med 07/14/20 14:04 Active 4 mg IVPUSH Q4H PRN Ondansetron [Zofran] Med 07/14/20 22:47 Active 4 mg IVPUSH Q6H PRN Pantoprazole [ProTONIX IV] 40 mg Med 07/14/20 15:30 Active Sodium Chloride 0.9% [Normal Saline] 10 ml IV Q24H Piperacillin/Tazobactam [Piperacil-Tazobact] 3.375 gm Med 07/14/20 20:00 Active Sodium Chloride 0.9% [Normal Saline] 50 ml IV Q6H Vancomycin [Vancocin] 1 gm Med 07/16/20 01:00 Active Sodium Chloride 0.9% [Normal Saline (AdvBag)] 250 ml IV Q24H Resuscitation Status Routine Resus Stat 07/14/20 23:11 Ordered Medication Orders Enalapril Maleate (Vasotec) 20 mg PO DAILY [facility] Last Admin: 07/15/20 08:50 Dose: 20 mg Documented by: Admin: 07/14/20 14:50 Dose: 20 mg Documented by: YENNY Enoxaparin Sodium (Lovenox) 40 mg SUBCUT BID [facility] Lactated Ringer's (Ringers, Lactated) 1,000 mls @ 125 mls/hr IV ASDIRECTED TAM Last Admin: 07/14/20 23:03 Dose: 125 mls/hr Documented by: Infusion: 07/14/20 21:50 Dose: 125 mls/hr Documented by: Admin: 07/14/20 13:50 Dose: 125 mls/hr Documented by: YENNY Piperacillin Sod/Tazobactam (Sod 3.375 gm/ Sodium Chloride) 50 mls @ 100 mls/hr IV Q6H [facility] Last Admin: 07/15/20 08:47 Dose: 100 mls/hr Documented by: Infusion: 07/15/20 02:18 Dose: 100 mls/hr Documented by: Admin: 07/15/20 01:48 Dose: 100 mls/hr Documented by: Infusion: 07/14/20 20:43 Dose: 100 mls/hr Documented by: Admin: 07/14/20 20:13 Dose: 100 mls/hr Documented by: TORIE Pantoprazole Sodium 40 mg/ (Sodium Chloride) 10 mls @ 300 mls/hr IV Q24H TAM Last Admin: 07/14/20 16:20 Dose: 300 mls/hr Documented by: YENNY Vancomycin HCl 1 gm/ Sodium (Chloride) 250 mls @ 250 mls/hr IV Q24H TAM Morphine Sulfate (Morphine) 4 mg IVPUSH Q4H PRN PRN Reason: Pain (severe 7-10) Last Admin: 07/14/20 23:04 Dose: 4 mg Documented by: Admin: 07/14/20 14:34 Dose: 4 mg Documented by: YENNY Ondansetron HCl (Zofran) 4 mg IVPUSH Q6H PRN PRN Reason: Nausea/Vomiting Last Admin: 07/14/20 23:03 Dose: 4 mg Documented by: TORIE Sodium Chloride (Saline Flush) 2.5 ml FLUSH ASDIRECTED PRN PRN Reason: Keep Vein Open Last Admin: 07/14/20 11:38 Dose: 2.5 ml Documented by: TERRY Sodium Chloride (Saline Flush) 10 ml FLUSH ASDIRECTED PRN PRN Reason: Keep Vein Open Last Admin: 07/14/20 08:56 Dose: 10 ml Documented by: Admin: 07/14/20 08:55 Dose: 10 ml Documented by: TERRY Assessment/Plan Comment:: I have seen and evaluated the patient and agree with the residents note unless specified in my note
--- NOTE | 2020-07-14 13:24 | PCM.CONS ---
H&P History of Present Illness - General Date of Service: 07/14/20 Admit Problem/Dx: Admission Diagnosis/Problem Admission Diagnosis/Problem Enteritis Source of Information: Patient History Limitations: Reports: No Limitations - History of Present Illness Initial Comments - Free Text/Narative: Patient is a 59 year old female who presents today with abdominal pain nausea vomiting and diarrhea. The patient states that this started last evening. She developed waves of pain across her lower abdomen. It was crampy and sharp. She developed loose watery stools and denies melena and hematochezia. She states she had chills as well as diaphoresis. She had never had a colonoscopy. She has never had any symptoms like this. She had no changes in her bowel habits prior to last evening. She has been in contact with her daughter and ex- who are both COVID positive. The patient was wearing a mask around them, but not quarantining. She is a 1-2 pack a day smoker. She also complains of a cough for >1 week that is productive. This has been associated with malaise and diffuse body aches. She was tachycardic on arrival to the ER. This improved with IV fluids. She states her last BM was right before arriving at the ER this am. Her WBC was normal with no evidence of a left shift. She was COVID positive. A CT abdomen pelvis was performed that showed distal small bowel swelling and inflammation as well as terminal ileitis and a dilated appearing appendix. abdomen Pain Score (Numeric/FACES): 5 - Related Data Allergies/Adverse Reactions: Allergies Allergy/AdvReac Type Severity Reaction Status Date / Time oxycodone Allergy Hives Verified 07/14/20 08:57 Home Medications: Home Meds Analapril 07/14/20 [History] Past Medical History HEENT History: Reports: None Cardiovascular History: Reports: Hypertension Respiratory History: Reports: None Gastrointestinal History: Reports: None Genitourinary History: Reports: None DOOR TRIMMER History: Reports: 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 History: Reports: Fracture Neurological History: Reports: None Psychiatric History: Reports: Depression Endocrine/Metabolic History: Reports: None Hematologic History: Reports: None Immunologic History: Reports: None Oncologic (Cancer) History: Reports: None Dermatologic History: Reports: None - Infectious Disease History Infectious Disease History: Reports: Chicken Pox, Shingles - Past Surgical History Head Surgeries/Procedures: Reports: None HEENT Surgical History: Reports: None, Tonsillectomy Female Surgical History: Reports: Section 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 Surgical History: Reports: Other (See Below), ORIF Other 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 Surgeries/Procedures:: left ankle Social & Family History - Family History Family Medical History: No Pertinent Family History - Tobacco Use Tobacco Use Status *Q: Current Every Day Tobacco User Years of Tobacco use: 1 Packs/Tins Daily: 2 - Caffeine Use Caffeine Use: Reports: Coffee - Recreational Drug Use Recreational Drug Use: No H&P Review of Systems - Review of Systems: Review Of Systems: Comprehensive ROS is negative, except as noted in HPI. Exam - Exam Exam: See Below - Vital Signs Vital Signs: Last Vital Signs Temp 35.3 C L 07/14/20 08:33 Pulse 89 07/14/20 10:07 Resp 17 07/14/20 10:07 BP 130/69 07/14/20 10:07 Pulse Ox 95 07/14/20 10:07 Weight: 65 kg - Exam General: Alert, Oriented, Cooperative HEENT: Conjunctiva Clear Neck: Supple Lungs: Other (Productive thick cough with deep breathing, clear to bases but transmitted upper airway sounds) Cardiovascular: Regular Rate, Regular Rhythm GI/Abdominal Exam: Soft, No Distention, Tender (across lower abdomen with deep palpation, pain was NOT localized ). No: Guarding, Rigid, Rebound Extremities: Normal Inspection - Patient Data Lab Results Last 24 hrs: Laboratory Results - last 24 hr 07/14/20 07/14/20 07/14/20 Range/Units 08:50 08:50 08:50 WBC 7.79 (4.0-11.0) K/uL RBC 5.07 (4.30-5.90) M/uL Hgb 16.6 H (12.0-16.0) g/dL Hct 47.9 H (36.0-46.0) % MCV 94.5 (80.0-98.0) fL MCH 32.7 H (27.0-32.0) pg MCHC 34.7 (31.0-37.0) g/dL RDW Std Deviation 43.2 (28.0-62.0) fl RDW Coeff of Nacho 13 (11.0-15.0) % Plt Count 183 (150-400) K/uL MPV 10.90 (7.40-12.00) fL Neut % (Auto) 66.8 (48.0-80.0) % Lymph % (Auto) 23.1 (16.0-40.0) % [place] % (Auto) 8.3 (0.0-15.0) % Eos % (Auto) 1.4 (0.0-7.0) % Baso % (Auto) 0.4 (0.0-1.5) % Neut # (Auto) 5.2 (1.4-5.7) K/uL Lymph # (Auto) 1.8 (0.6-2.4) K/uL [place] # (Auto) 0.7 (0.0-0.8) K/uL Eos # (Auto) 0.1 (0.0-0.7) K/uL Baso # (Auto) 0.0 (0.0-0.1) K/uL Nucleated RBC % 0.0 /100WBC Nucleated RBCs # 0 K/uL INR APTT (18.6-31.3) SEC D-Dimer, Quantitative (0.0-0.50) mg/L FEU Lactate (0.20-2.00) mmol/L Sodium 134 L (136-145) mmol/L Potassium 3.8 (3.5-5.1) mmol/L Chloride 100 (98-107) mmol/L Carbon Dioxide 18.2 L (21.0-32.0) mmol/L BUN 8 (7.0-18.0) mg/dL Creatinine 0.7 (0.6-1.0) mg/dL Est Cr Clr Drug Dosing 66.91 mL/min Estimated GFR (MDRD) > 60.0 ml/min Glucose 126 H (74-106) mg/dL Calcium 9.7 (8.5-10.1) mg/dL Magnesium 2.2 (1.8-2.4) mg/dL Ferritin (8-252) ng/mL Total Bilirubin 1.0 (0.2-1.0) mg/dL AST 30 (15-37) IU/L ALT 30 (14-63) IU/L Alkaline Phosphatase 165 H (46-116) U/L Lactate Dehydrogenase (81-234) U/L Troponin I < 0.050 (0.000-0.056) ng/mL C-Reactive Protein (0.00-0.90) mg/dL Total Protein 8.2 (6.4-8.2) g/dL Albumin 3.4 (3.4-5.0) g/dL Globulin 4.8 H (2.6-4.0) g/dL Albumin/Globulin Ratio 0.7 L (0.9-1.6) Lipase 83 (73-393) U/L Urine Color Urine Appearance Urine pH (5.0-8.0) Ur Specific [place] (1.001-1.035) Urine Protein (NEGATIVE) mg/dL Urine Glucose (UA) (NEGATIVE) mg/dL Urine Ketones (NEGATIVE) mg/dL Urine Occult Blood (NEGATIVE) Urine Nitrite (NEGATIVE) Urine Bilirubin (NEGATIVE) Urine Urobilinogen (<2.0) EU/dL Ur Leukocyte Esterase (NEGATIVE) Urine RBC (0-2/HPF) Urine WBC (0-5/HPF) Ur Epithelial Cells (NONE-FEW) Urine Bacteria (NEGATIVE) Urine Mucus (NONE-MOD) SARS-CoV-2 RNA (GALINDO) (NEGATIVE) 07/14/20 07/14/20 07/14/20 Range/Units 09:04 11:05 11:05 WBC (4.0-11.0) K/uL RBC (4.30-5.90) M/uL Hgb (12.0-16.0) g/dL Hct (36.0-46.0) % MCV (80.0-98.0) fL MCH (27.0-32.0) pg MCHC (31.0-37.0) g/dL RDW Std Deviation (28.0-62.0) fl RDW Coeff of Nacho (11.0-15.0) % Plt Count (150-400) K/uL MPV (7.40-12.00) fL Neut % (Auto) (48.0-80.0) % Lymph % (Auto) (16.0-40.0) % [place] % (Auto) (0.0-15.0) % Eos % (Auto) (0.0-7.0) % Baso % (Auto) (0.0-1.5) % Neut # (Auto) (1.4-5.7) K/uL Lymph # (Auto) (0.6-2.4) K/uL [place] # (Auto) (0.0-0.8) K/uL Eos # (Auto) (0.0-0.7) K/uL Baso # (Auto) (0.0-0.1) K/uL Nucleated RBC % /100WBC Nucleated RBCs # K/uL INR 1.00 APTT 27.8 (18.6-31.3) SEC D-Dimer, Quantitative (0.0-0.50) mg/L FEU Lactate (0.20-2.00) mmol/L Sodium (136-145) mmol/L Potassium (3.5-5.1) mmol/L Chloride (98-107) mmol/L Carbon Dioxide (21.0-32.0) mmol/L BUN (7.0-18.0) mg/dL Creatinine (0.6-1.0) mg/dL Est Cr Clr Drug Dosing mL/min Estimated GFR (MDRD) ml/min Glucose (74-106) mg/dL Calcium (8.5-10.1) mg/dL Magnesium (1.8-2.4) mg/dL Ferritin (8-252) ng/mL Total Bilirubin (0.2-1.0) mg/dL AST (15-37) IU/L ALT (14-63) IU/L Alkaline Phosphatase (46-116) U/L Lactate Dehydrogenase 261 H (81-234) U/L Troponin I (0.000-0.056) ng/mL C-Reactive Protein 6.00 H (0.00-0.90) mg/dL Total Protein (6.4-8.2) g/dL Albumin (3.4-5.0) g/dL Globulin (2.6-4.0) g/dL Albumin/Globulin Ratio (0.9-1.6) Lipase (73-393) U/L Urine Color Urine Appearance Urine pH (5.0-8.0) Ur Specific [place] (1.001-1.035) Urine Protein (NEGATIVE) mg/dL Urine Glucose (UA) (NEGATIVE) mg/dL Urine Ketones (NEGATIVE) mg/dL Urine Occult Blood (NEGATIVE) Urine Nitrite (NEGATIVE) Urine Bilirubin (NEGATIVE) Urine Urobilinogen (<2.0) EU/dL Ur Leukocyte Esterase (NEGATIVE) Urine RBC (0-2/HPF) Urine WBC (0-5/HPF) Ur Epithelial Cells (NONE-FEW) Urine Bacteria (NEGATIVE) Urine Mucus (NONE-MOD) SARS-CoV-2 RNA (GALINDO) POSITIVE H (NEGATIVE) 07/14/20 07/14/20 07/14/20 Range/Units 11:05 11:05 11:05 WBC (4.0-11.0) K/uL RBC (4.30-5.90) M/uL Hgb (12.0-16.0) g/dL Hct (36.0-46.0) % MCV (80.0-98.0) fL MCH (27.0-32.0) pg MCHC (31.0-37.0) g/dL RDW Std Deviation (28.0-62.0) fl RDW Coeff of Nacho (11.0-15.0) % Plt Count (150-400) K/uL MPV (7.40-12.00) fL Neut % (Auto) (48.0-80.0) % Lymph % (Auto) (16.0-40.0) % [place] % (Auto) (0.0-15.0) % Eos % (Auto) (0.0-7.0) % Baso % (Auto) (0.0-1.5) % Neut # (Auto) (1.4-5.7) K/uL Lymph # (Auto) (0.6-2.4) K/uL [place] # (Auto) (0.0-0.8) K/uL Eos # (Auto) (0.0-0.7) K/uL Baso # (Auto) (0.0-0.1) K/uL Nucleated RBC % /100WBC Nucleated RBCs # K/uL INR APTT (18.6-31.3) SEC D-Dimer, Quantitative 18.25 H (0.0-0.50) mg/L FEU Lactate 1.0 (0.20-2.00) mmol/L Sodium (136-145) mmol/L Potassium (3.5-5.1) mmol/L Chloride (98-107) mmol/L Carbon Dioxide (21.0-32.0) mmol/L BUN (7.0-18.0) mg/dL Creatinine (0.6-1.0) mg/dL Est Cr Clr Drug Dosing mL/min Estimated GFR (MDRD) ml/min Glucose (74-106) mg/dL Calcium (8.5-10.1) mg/dL Magnesium (1.8-2.4) mg/dL Ferritin 324 H (8-252) ng/mL Total Bilirubin (0.2-1.0) mg/dL AST (15-37) IU/L ALT (14-63) IU/L Alkaline Phosphatase (46-116) U/L Lactate Dehydrogenase (81-234) U/L Troponin I (0.000-0.056) ng/mL C-Reactive Protein (0.00-0.90) mg/dL Total Protein (6.4-8.2) g/dL Albumin (3.4-5.0) g/dL Globulin (2.6-4.0) g/dL Albumin/Globulin Ratio (0.9-1.6) Lipase (73-393) U/L Urine Color Urine Appearance Urine pH (5.0-8.0) Ur Specific [place] (1.001-1.035) Urine Protein (NEGATIVE) mg/dL Urine Glucose (UA) (NEGATIVE) mg/dL Urine Ketones (NEGATIVE) mg/dL Urine Occult Blood (NEGATIVE) Urine Nitrite (NEGATIVE) Urine Bilirubin (NEGATIVE) Urine Urobilinogen (<2.0) EU/dL Ur Leukocyte Esterase (NEGATIVE) Urine RBC (0-2/HPF) Urine WBC (0-5/HPF) Ur Epithelial Cells (NONE-FEW) Urine Bacteria (NEGATIVE) Urine Mucus (NONE-MOD) SARS-CoV-2 RNA (GALINDO) (NEGATIVE) 07/14/20 Range/Units 11:11 WBC (4.0-11.0) K/uL RBC (4.30-5.90) M/uL Hgb (12.0-16.0) g/dL Hct (36.0-46.0) % MCV (80.0-98.0) fL MCH (27.0-32.0) pg MCHC (31.0-37.0) g/dL RDW Std Deviation (28.0-62.0) fl RDW Coeff of Nacho (11.0-15.0) % Plt Count (150-400) K/uL MPV (7.40-12.00) fL Neut % (Auto) (48.0-80.0) % Lymph % (Auto) (16.0-40.0) % [place] % (Auto) (0.0-15.0) % Eos % (Auto) (0.0-7.0) % Baso % (Auto) (0.0-1.5) % Neut # (Auto) (1.4-5.7) K/uL Lymph # (Auto) (0.6-2.4) K/uL [place] # (Auto) (0.0-0.8) K/uL Eos # (Auto) (0.0-0.7) K/uL Baso # (Auto) (0.0-0.1) K/uL Nucleated RBC % /100WBC Nucleated RBCs # K/uL INR APTT (18.6-31.3) SEC D-Dimer, Quantitative (0.0-0.50) mg/L FEU Lactate (0.20-2.00) mmol/L Sodium (136-145) mmol/L Potassium (3.5-5.1) mmol/L Chloride (98-107) mmol/L Carbon Dioxide (21.0-32.0) mmol/L BUN (7.0-18.0) mg/dL Creatinine (0.6-1.0) mg/dL Est Cr Clr Drug Dosing mL/min Estimated GFR (MDRD) ml/min Glucose (74-106) mg/dL Calcium (8.5-10.1) mg/dL Magnesium (1.8-2.4) mg/dL Ferritin (8-252) ng/mL Total Bilirubin (0.2-1.0) mg/dL AST (15-37) IU/L ALT (14-63) IU/L Alkaline Phosphatase (46-116) U/L Lactate Dehydrogenase (81-234) U/L Troponin I (0.000-0.056) ng/mL C-Reactive Protein (0.00-0.90) mg/dL Total Protein (6.4-8.2) g/dL Albumin (3.4-5.0) g/dL Globulin (2.6-4.0) g/dL Albumin/Globulin Ratio (0.9-1.6) Lipase (73-393) U/L Urine Color DARK YELLOW Urine Appearance CLEAR Urine pH 6.5 (5.0-8.0) Ur Specific [place] 1.010 (1.001-1.035) Urine Protein NEGATIVE (NEGATIVE) mg/dL Urine Glucose (UA) NEGATIVE (NEGATIVE) mg/dL Urine Ketones TRACE H (NEGATIVE) mg/dL Urine Occult Blood NEGATIVE (NEGATIVE) Urine Nitrite NEGATIVE (NEGATIVE) Urine Bilirubin SMALL H (NEGATIVE) Urine Urobilinogen 0.2 (<2.0) EU/dL Ur Leukocyte Esterase TRACE H (NEGATIVE) Urine RBC 0-2 (0-2/HPF) Urine WBC 0-2 (0-5/HPF) Ur Epithelial Cells FEW (NONE-FEW) Urine Bacteria FEW (NEGATIVE) Urine Mucus LIGHT (NONE-MOD) SARS-CoV-2 RNA (GALINDO) (NEGATIVE) Result Diagrams: 07/14/20 08:50 07/14/20 08:50 Sepsis Event Note - Evaluation Sepsis Screening Result: No Definite Risk - Focused Exam Vital Signs: Vital Signs Temp Pulse Resp BP Pulse Ox 07/14/20 10:07 89 17 130/69 95 07/14/20 09:37 90 17 147/85 H 95 07/14/20 08:33 35.3 C L 108 H 18 118/77 96 Consult PN Assessment/Plan Procedures: Procedures ASSAY OF FREE THYROXINE (05/14/15) ASSAY OF MAGNESIUM (05/14/15) ASSAY OF TROPONIN QUANT (12/19/19) ASSAY THYROID STIM HORMONE (05/14/15) CHORIONIC GONADOTROPIN ASSAY (02/04/17) COMPLETE CBC W/AUTO DIFF WBC (12/19/19) COMPREHEN METABOLIC PANEL (12/19/19) CT ABD & PELV W/CONTRAST (12/19/19) CT HEAD/BRAIN W/O DYE (02/04/17) CT NECK SPINE W/O DYE (11/06/16) CT THORAX W/DYE (12/19/19) ELECTROCARDIOGRAM TRACING (12/19/19) EMERGENCY DEPT VISIT (03/14/20) EMERGENCY DEPT VISIT (12/19/19) EMERGENCY DEPT VISIT (02/04/17) EMERGENCY DEPT VISIT (11/06/16) EMERGENCY DEPT VISIT (05/14/15) HYDRATE IV INFUSION ADD-ON (05/14/15) HYDRATION IV INFUSION INIT (02/04/17) ROUTINE VENIPUNCTURE (12/19/19) THER/PROPH/DIAG INJ IV PUSH (12/19/19) THER/PROPH/DIAG INJ SC/IM (11/06/16) TX/PRO/DX INJ NEW DRUG ADDON (12/19/19) X-RAY EXAM OF ANKLE (05/01/16) X-RAY EXAM UNILAT RIBS/CHEST (02/04/17) (1) COVID-19 SNOMED Code(s): 922245621 Code(s): U07.1 - COVID-19 Current Visit: Yes (2) Enteritis SNOMED Code(s): 15572871 Code(s): K52.9 - NONINFECTIVE GASTROENTERITIS AND COLITIS, UNSPECIFIED Current Visit: Yes Problem List Initiated/Reviewed/Updated: Yes Plan: The radiologist read the exam as possible appendicitis. Looking at her lab work, her clinical story, physical exam, and COVID positive status I feel this is COVID enteritis which is causing diffuse inflammation of the distal small bowel terminal ileum and appendix. I discussed the CT findings with the radiologist who favors this as well. The segment of thickening appears too long to be Cr ohn's disease. There is no evidence of appendicolith. Will admit the patient to the medicine team and follow along closely. She should be made NPO except ice chips and sips with medications. She should be resuscitated with IVF and to be safe I would have her on zosyn 3.375mg IV q6hr. Remainder of cares per medicine team. If her abdominal exam worsens, I will need to have an in-depth conversation with our anesthesia team regarding whether a surgery can be performed here or not. Call with any questions or concerns.
[2020-07-14] MEDS: Lactated Ringers 1,000 ML IV SCH ×2 (13:50→23:03)
[2020-07-14] MEDS: Enoxaparin 100 MG/1 ML Syringe SUBCUT SCH ×2 (14:32→20:18)
[2020-07-14] MEDS: Morphine 4 MG/ML Syringe IVPUSH PRN ×2 (14:34→23:04)
[2020-07-14] MEDS ORDERED: Piperacillin/Tazobactam 3.375 GM in Sodium Chloride 0.9% 50 ML IV SCH ×2 (15:15→20:00)
[2020-07-14] MEDS ORDERED: FLU VACC QS2020-21(6MOS UP)/PF 60 MCG/0.5 ML SYRINGE IM ONE (15:15)
[2020-07-14] MEDS: Pantoprazole 40 MG in Sodium Chloride 0.9% 10 ML IV SCH (16:20)
[2020-07-14] MEDS: Piperacillin/Tazobactam 3.375 GM in Sodium Chloride 0.9% 50 ML IV SCH (20:13)
[2020-07-14] MEDS ORDERED: Ondansetron 4 MG/2 ML SDV IVPUSH PRN (22:47)
[2020-07-14] MEDS ORDERED: LORazepam 2 MG/ML SDV IVPUSH ONE (22:54)
[2020-07-15] MEDS ORDERED: LORazepam 2 MG/ML SDV IVPUSH ONE ×2 (01:45→22:52)
[2020-07-15] MEDS: Piperacillin/Tazobactam 3.375 GM in Sodium Chloride 0.9% 50 ML IV SCH ×4 (01:48→20:23)
[2020-07-15 06:57] LABS: CARBON DIOXIDE,CO2 21.5 mmol/L (21.0-32.0); POTASSIUM,K 3.4 mmol/L (3.5-5.1)
--- NOTE | 2020-07-15 07:50 | PCM.CONSN ---
- General Info Date of Service: 07/15/20 Functional Status: Reports: Pain Controlled, Other (Pain is improved and well managed with pain medication. Patient had one loose BM this morning. She states that she feels better overall. ) - Review of Systems General: Reports: No Symptoms Pulmonary: Reports: Cough Cardiovascular: Reports: No Symptoms Gastrointestinal: Reports: Diarrhea. Denies: Nausea, Vomiting Genitourinary: Reports: No Symptoms 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: Reports: No Symptoms - Patient Data Vitals - Most Recent: Last Vital Signs Temp 36.1 C 07/15/20 03:00 Pulse 68 07/15/20 03:00 Resp 18 07/15/20 03:00 BP 135/60 07/15/20 03:00 Pulse Ox 95 07/15/20 03:00 Weight - Most Recent: 65.1 kg I&O - Last 24 Hours: Intake & Output 07/14/20 07/15/20 07/15/20 22:59 06:59 14:59 Intake Total 50 Output Total 250 300 Balance -200 -300 Lab Results Last 24 Hours: Laboratory Results - last 24 hr 07/14/20 07/14/20 07/14/20 Range/Units 08:50 08:50 08:50 WBC 7.79 (4.0-11.0) K/uL RBC 5.07 (4.30-5.90) M/uL Hgb 16.6 H (12.0-16.0) g/dL Hct 47.9 H (36.0-46.0) % MCV 94.5 (80.0-98.0) fL MCH 32.7 H (27.0-32.0) pg MCHC 34.7 (31.0-37.0) g/dL RDW Std Deviation 43.2 (28.0-62.0) fl RDW Coeff of Nacho 13 (11.0-15.0) % Plt Count 183 (150-400) K/uL MPV 10.90 (7.40-12.00) fL Neut % (Auto) 66.8 (48.0-80.0) % Lymph % (Auto) 23.1 (16.0-40.0) % [place] % (Auto) 8.3 (0.0-15.0) % Eos % (Auto) 1.4 (0.0-7.0) % Baso % (Auto) 0.4 (0.0-1.5) % Neut # (Auto) 5.2 (1.4-5.7) K/uL Lymph # (Auto) 1.8 (0.6-2.4) K/uL [place] # (Auto) 0.7 (0.0-0.8) K/uL Eos # (Auto) 0.1 (0.0-0.7) K/uL Baso # (Auto) 0.0 (0.0-0.1) K/uL Nucleated RBC % 0.0 /100WBC Nucleated RBCs # 0 K/uL INR APTT (18.6-31.3) SEC D-Dimer, Quantitative (0.0-0.50) mg/L FEU Lactate (0.20-2.00) mmol/L Sodium 134 L (136-145) mmol/L Potassium 3.8 (3.5-5.1) mmol/L Chloride 100 (98-107) mmol/L Carbon Dioxide 18.2 L (21.0-32.0) mmol/L BUN 8 (7.0-18.0) mg/dL Creatinine 0.7 (0.6-1.0) mg/dL Est Cr Clr Drug Dosing 66.91 mL/min Estimated GFR (MDRD) > 60.0 ml/min Glucose 126 H (74-106) mg/dL Calcium 9.7 (8.5-10.1) mg/dL Magnesium 2.2 (1.8-2.4) mg/dL Ferritin (8-252) ng/mL Total Bilirubin 1.0 (0.2-1.0) mg/dL AST 30 (15-37) IU/L ALT 30 (14-63) IU/L Alkaline Phosphatase 165 H (46-116) U/L Lactate Dehydrogenase (81-234) U/L Troponin I < 0.050 (0.000-0.056) ng/mL C-Reactive Protein (0.00-0.90) mg/dL Total Protein 8.2 (6.4-8.2) g/dL Albumin 3.4 (3.4-5.0) g/dL Globulin 4.8 H (2.6-4.0) g/dL Albumin/Globulin Ratio 0.7 L (0.9-1.6) Lipase 83 (73-393) U/L Procalcitonin (<0.10) ng/mL Urine Color Urine Appearance Urine pH (5.0-8.0) Ur Specific [place] (1.001-1.035) Urine Protein (NEGATIVE) mg/dL Urine Glucose (UA) (NEGATIVE) mg/dL Urine Ketones (NEGATIVE) mg/dL Urine Occult Blood (NEGATIVE) Urine Nitrite (NEGATIVE) Urine Bilirubin (NEGATIVE) Urine Urobilinogen (<2.0) EU/dL Ur Leukocyte Esterase (NEGATIVE) Urine RBC (0-2/HPF) Urine WBC (0-5/HPF) Ur Epithelial Cells (NONE-FEW) Urine Bacteria (NEGATIVE) Urine Mucus (NONE-MOD) SARS-CoV-2 RNA (GALINDO) (NEGATIVE) 07/14/20 07/14/20 07/14/20 Range/Units 09:04 11:05 11:05 WBC (4.0-11.0) K/uL RBC (4.30-5.90) M/uL Hgb (12.0-16.0) g/dL Hct (36.0-46.0) % MCV (80.0-98.0) fL MCH (27.0-32.0) pg MCHC (31.0-37.0) g/dL RDW Std Deviation (28.0-62.0) fl RDW Coeff of Nacho (11.0-15.0) % Plt Count (150-400) K/uL MPV (7.40-12.00) fL Neut % (Auto) (48.0-80.0) % Lymph % (Auto) (16.0-40.0) % [place] % (Auto) (0.0-15.0) % Eos % (Auto) (0.0-7.0) % Baso % (Auto) (0.0-1.5) % Neut # (Auto) (1.4-5.7) K/uL Lymph # (Auto) (0.6-2.4) K/uL [place] # (Auto) (0.0-0.8) K/uL Eos # (Auto) (0.0-0.7) K/uL Baso # (Auto) (0.0-0.1) K/uL Nucleated RBC % /100WBC Nucleated RBCs # K/uL INR APTT (18.6-31.3) SEC D-Dimer, Quantitative (0.0-0.50) mg/L FEU Lactate (0.20-2.00) mmol/L Sodium (136-145) mmol/L Potassium (3.5-5.1) mmol/L Chloride (98-107) mmol/L Carbon Dioxide (21.0-32.0) mmol/L BUN (7.0-18.0) mg/dL Creatinine (0.6-1.0) mg/dL Est Cr Clr Drug Dosing mL/min Estimated GFR (MDRD) ml/min Glucose (74-106) mg/dL Calcium (8.5-10.1) mg/dL Magnesium (1.8-2.4) mg/dL Ferritin (8-252) ng/mL Total Bilirubin (0.2-1.0) mg/dL AST (15-37) IU/L ALT (14-63) IU/L Alkaline Phosphatase (46-116) U/L Lactate Dehydrogenase 261 H (81-234) U/L Troponin I (0.000-0.056) ng/mL C-Reactive Protein 6.00 H (0.00-0.90) mg/dL Total Protein (6.4-8.2) g/dL Albumin (3.4-5.0) g/dL Globulin (2.6-4.0) g/dL Albumin/Globulin Ratio (0.9-1.6) Lipase (73-393) U/L Procalcitonin <0.05 (<0.10) ng/mL Urine Color Urine Appearance Urine pH (5.0-8.0) Ur Specific [place]ubert (1.001-1.035) Urine Protein (NEGATIVE) mg/dL Urine Glucose (UA) (NEGATIVE) mg/dL Urine Ketones (NEGATIVE) mg/dL Urine Occult Blood (NEGATIVE) Urine Nitrite (NEGATIVE) Urine Bilirubin (NEGATIVE) Urine Urobilinogen (<2.0) EU/dL Ur Leukocyte Esterase (NEGATIVE) Urine RBC (0-2/HPF) Urine WBC (0-5/HPF) Ur Epithelial Cells (NONE-FEW) Urine Bacteria (NEGATIVE) Urine Mucus (NONE-MOD) SARS-CoV-2 RNA (GALINDO) POSITIVE H (NEGATIVE) 07/14/20 07/14/20 07/14/20 Range/Units 11:05 11:05 11:05 WBC (4.0-11.0) K/uL RBC (4.30-5.90) M/uL Hgb (12.0-16.0) g/dL Hct (36.0-46.0) % MCV (80.0-98.0) fL MCH (27.0-32.0) pg MCHC (31.0-37.0) g/dL RDW Std Deviation (28.0-62.0) fl RDW Coeff of Nacho (11.0-15.0) % Plt Count (150-400) K/uL MPV (7.40-12.00) fL Neut % (Auto) (48.0-80.0) % Lymph % (Auto) (16.0-40.0) % [place] % (Auto) (0.0-15.0) % Eos % (Auto) (0.0-7.0) % Baso % (Auto) (0.0-1.5) % Neut # (Auto) (1.4-5.7) K/uL Lymph # (Auto) (0.6-2.4) K/uL [place] # (Auto) (0.0-0.8) K/uL Eos # (Auto) (0.0-0.7) K/uL Baso # (Auto) (0.0-0.1) K/uL Nucleated RBC % /100WBC Nucleated RBCs # K/uL INR 1.00 APTT 27.8 (18.6-31.3) SEC D-Dimer, Quantitative 18.25 H (0.0-0.50) mg/L FEU Lactate (0.20-2.00) mmol/L Sodium (136-145) mmol/L Potassium (3.5-5.1) mmol/L Chloride (98-107) mmol/L Carbon Dioxide (21.0-32.0) mmol/L BUN (7.0-18.0) mg/dL Creatinine (0.6-1.0) mg/dL Est Cr Clr Drug Dosing mL/min Estimated GFR (MDRD) ml/min Glucose (74-106) mg/dL Calcium (8.5-10.1) mg/dL Magnesium (1.8-2.4) mg/dL Ferritin 324 H (8-252) ng/mL Total Bilirubin (0.2-1.0) mg/dL AST (15-37) IU/L ALT (14-63) IU/L Alkaline Phosphatase (46-116) U/L Lactate Dehydrogenase (81-234) U/L Troponin I (0.000-0.056) ng/mL C-Reactive Protein (0.00-0.90) mg/dL Total Protein (6.4-8.2) g/dL Albumin (3.4-5.0) g/dL Globulin (2.6-4.0) g/dL Albumin/Globulin Ratio (0.9-1.6) Lipase (73-393) U/L Procalcitonin (<0.10) ng/mL Urine Color Urine Appearance Urine pH (5.0-8.0) Ur Specific [place] (1.001-1.035) Urine Protein (NEGATIVE) mg/dL Urine Glucose (UA) (NEGATIVE) mg/dL Urine Ketones (NEGATIVE) mg/dL Urine Occult Blood (NEGATIVE) Urine Nitrite (NEGATIVE) Urine Bilirubin (NEGATIVE) Urine Urobilinogen (<2.0) EU/dL Ur Leukocyte Esterase (NEGATIVE) Urine RBC (0-2/HPF) Urine WBC (0-5/HPF) Ur Epithelial Cells (NONE-FEW) Urine Bacteria (NEGATIVE) Urine Mucus (NONE-MOD) SARS-CoV-2 RNA (GALINDO) (NEGATIVE) 07/14/20 07/14/20 07/15/20 Range/Units 11:05 11:11 05:39 WBC 5.52 (4.0-11.0) K/uL RBC 3.82 L (4.30-5.90) M/uL Hgb 12.2 (12.0-16.0) g/dL Hct 37.1 (36.0-46.0) % MCV 97.1 (80.0-98.0) fL MCH 31.9 (27.0-32.0) pg MCHC 32.9 (31.0-37.0) g/dL RDW Std Deviation 44.3 (28.0-62.0) fl RDW Coeff of Nacho 13 (11.0-15.0) % Plt Count 171 (150-400) K/uL MPV 10.90 (7.40-12.00) fL Neut % (Auto) 54.5 (48.0-80.0) % Lymph % (Auto) 27.2 (16.0-40.0) % [place] % (Auto) 14.7 (0.0-15.0) % Eos % (Auto) 2.9 (0.0-7.0) % Baso % (Auto) 0.7 (0.0-1.5) % Neut # (Auto) 3.0 (1.4-5.7) K/uL Lymph # (Auto) 1.5 (0.6-2.4) K/uL [place] # (Auto) 0.8 (0.0-0.8) K/uL Eos # (Auto) 0.2 (0.0-0.7) K/uL Baso # (Auto) 0.0 (0.0-0.1) K/uL Nucleated RBC % 0.0 /100WBC Nucleated RBCs # 0 K/uL INR APTT (18.6-31.3) SEC D-Dimer, Quantitative (0.0-0.50) mg/L FEU Lactate 1.0 (0.20-2.00) mmol/L Sodium (136-145) mmol/L Potassium (3.5-5.1) mmol/L Chloride (98-107) mmol/L Carbon Dioxide (21.0-32.0) mmol/L BUN (7.0-18.0) mg/dL Creatinine (0.6-1.0) mg/dL Est Cr Clr Drug Dosing mL/min Estimated GFR (MDRD) ml/min Glucose (74-106) mg/dL Calcium (8.5-10.1) mg/dL Magnesium (1.8-2.4) mg/dL Ferritin (8-252) ng/mL Total Bilirubin (0.2-1.0) mg/dL AST (15-37) IU/L ALT (14-63) IU/L Alkaline Phosphatase (46-116) U/L Lactate Dehydrogenase (81-234) U/L Troponin I (0.000-0.056) ng/mL C-Reactive Protein (0.00-0.90) mg/dL Total Protein (6.4-8.2) g/dL Albumin (3.4-5.0) g/dL Globulin (2.6-4.0) g/dL Albumin/Globulin Ratio (0.9-1.6) Lipase (73-393) U/L Procalcitonin (<0.10) ng/mL Urine Color DARK YELLOW Urine Appearance CLEAR Urine pH 6.5 (5.0-8.0) Ur Specific [place] 1.010 (1.001-1.035) Urine Protein NEGATIVE (NEGATIVE) mg/dL Urine Glucose (UA) NEGATIVE (NEGATIVE) mg/dL Urine Ketones TRACE H (NEGATIVE) mg/dL Urine Occult Blood NEGATIVE (NEGATIVE) Urine Nitrite NEGATIVE (NEGATIVE) Urine Bilirubin SMALL H (NEGATIVE) Urine Urobilinogen 0.2 (<2.0) EU/dL Ur Leukocyte Esterase TRACE H (NEGATIVE) Urine RBC 0-2 (0-2/HPF) Urine WBC 0-2 (0-5/HPF) Ur Epithelial Cells FEW (NONE-FEW) Urine Bacteria FEW (NEGATIVE) Urine Mucus LIGHT (NONE-MOD) SARS-CoV-2 RNA (GALINDO) (NEGATIVE) 07/15/20 Range/Units 05:39 WBC (4.0-11.0) K/uL RBC (4.30-5.90) M/uL Hgb (12.0-16.0) g/dL Hct (36.0-46.0) % MCV (80.0-98.0) fL MCH (27.0-32.0) pg MCHC (31.0-37.0) g/dL RDW Std Deviation (28.0-62.0) fl RDW Coeff of Nacho (11.0-15.0) % Plt Count (150-400) K/uL MPV (7.40-12.00) fL Neut % (Auto) (48.0-80.0) % Lymph % (Auto) (16.0-40.0) % [place] % (Auto) (0.0-15.0) % Eos % (Auto) (0.0-7.0) % Baso % (Auto) (0.0-1.5) % Neut # (Auto) (1.4-5.7) K/uL Lymph # (Auto) (0.6-2.4) K/uL [place] # (Auto) (0.0-0.8) K/uL Eos # (Auto) (0.0-0.7) K/uL Baso # (Auto) (0.0-0.1) K/uL Nucleated RBC % /100WBC Nucleated RBCs # K/uL INR APTT (18.6-31.3) SEC D-Dimer, Quantitative (0.0-0.50) mg/L FEU Lactate (0.20-2.00) mmol/L Sodium 140 (136-145) mmol/L Potassium 3.4 L (3.5-5.1) mmol/L Chloride 107 (98-107) mmol/L Carbon Dioxide 21.5 (21.0-32.0) mmol/L BUN 11 (7.0-18.0) mg/dL Creatinine 1.2 H (0.6-1.0) mg/dL Est Cr Clr Drug Dosing 39.03 mL/min Estimated GFR (MDRD) 46.3 ml/min Glucose 83 (74-106) mg/dL Calcium 8.2 L (8.5-10.1) mg/dL Magnesium (1.8-2.4) mg/dL Ferritin (8-252) ng/mL Total Bilirubin 0.9 (0.2-1.0) mg/dL AST 23 (15-37) IU/L ALT 21 (14-63) IU/L Alkaline Phosphatase 105 (46-116) U/L Lactate Dehydrogenase (81-234) U/L Troponin I (0.000-0.056) ng/mL C-Reactive Protein (0.00-0.90) mg/dL Total Protein 6.0 L (6.4-8.2) g/dL Albumin 2.4 L (3.4-5.0) g/dL Globulin 3.6 (2.6-4.0) g/dL Albumin/Globulin Ratio 0.7 L (0.9-1.6) Lipase (73-393) U/L Procalcitonin (<0.10) ng/mL Urine Color Urine Appearance Urine pH (5.0-8.0) Ur Specific [place] (1.001-1.035) Urine Protein (NEGATIVE) mg/dL Urine Glucose (UA) (NEGATIVE) mg/dL Urine Ketones (NEGATIVE) mg/dL Urine Occult Blood (NEGATIVE) Urine Nitrite (NEGATIVE) Urine Bilirubin (NEGATIVE) Urine Urobilinogen (<2.0) EU/dL Ur Leukocyte Esterase (NEGATIVE) Urine RBC (0-2/HPF) Urine WBC (0-5/HPF) Ur Epithelial Cells (NONE-FEW) Urine Bacteria (NEGATIVE) Urine Mucus (NONE-MOD) SARS-CoV-2 RNA (GALINDO) (NEGATIVE) Panfilo Results Last 24 Hours: Microbiology 07/15/20 00:10 C. difficile Antigen & Toxins A,B - Final Stool / Feces 07/15/20 00:10 Stool Occult Blood (PANFILO) - Final Stool / Feces Med Orders - Current: Current Medications Enalapril Maleate (Vasotec) 20 mg PO DAILY [facility] Last Admin: 07/14/20 14:50 Dose: 20 mg Documented by: Enoxaparin Sodium (Lovenox) 65 mg 1 mg/kg (65 mg) SUBCUT BID [facility] Last Admin: 07/14/20 20:18 Dose: 65 mg Documented by: Vancomycin HCl 1 gm/ Sodium (Chloride) 250 mls @ 250 mls/hr IV Q12H [facility] Last Admin: 07/15/20 01:08 Dose: 250 mls/hr Documented by: Lactated Ringer's (Ringers, Lactated) 1,000 mls @ 125 mls/hr IV ASDIRECTED [facility] Last Admin: 07/14/20 23:03 Dose: 125 mls/hr Documented by: Piperacillin Sod/Tazobactam (Sod 3.375 gm/ Sodium Chloride) 50 mls @ 100 mls/hr IV Q6H [facility] Last Admin: 07/15/20 01:48 Dose: 100 mls/hr Documented by: Pantoprazole Sodium 40 mg/ (Sodium Chloride) 10 mls @ 300 mls/hr IV Q24H [facility] Last Admin: 07/14/20 16:20 Dose: 300 mls/hr Documented by: Morphine Sulfate (Morphine) 4 mg IVPUSH Q4H PRN PRN Reason: Pain (severe 7-10) Last Admin: 07/14/20 23:04 Dose: 4 mg Documented by: Ondansetron HCl (Zofran) 4 mg IVPUSH Q6H PRN PRN Reason: Nausea/Vomiting Last Admin: 07/14/20 23:03 Dose: 4 mg Documented by: Sodium Chloride (Saline Flush) 2.5 ml FLUSH ASDIRECTED PRN PRN Reason: Keep Vein Open Last Admin: 07/14/20 11:38 Dose: 2.5 ml Documented by: Sodium Chloride (Saline Flush) 10 ml FLUSH ASDIRECTED PRN PRN Reason: Keep Vein Open Last Admin: 07/14/20 08:56 Dose: 10 ml Documented by: Discontinued Medications Enalapril Maleate (Vasotec) 40 mg PO DAILY [facility] Fentanyl (Fentanyl) 50 mcg IVPUSH ONETIME ONE Stop: 07/14/20 09:03 Last Admin: 07/14/20 09:06 Dose: 50 mcg Documented by: Fentanyl (Fentanyl) 50 mcg IVPUSH ONETIME ONE Stop: 07/14/20 11:46 Last Admin: 07/14/20 11:49 Dose: 50 mcg Documented by: Fentanyl (Fentanyl) Confirm Administered Dose 50 mcg .ROUTE .STK-MED ONE Stop: 07/14/20 11:46 Last Admin: 07/14/20 13:02 Dose: Not Given Documented by: Lactated Ringer's (Ringers, Lactated) 1,000 mls @ 999 mls/hr IV .BOLUS ONE Stop: 07/14/20 09:43 Last Admin: 07/14/20 08:55 Dose: 999 mls/hr Documented by: Piperacillin Sod/Tazobactam (Sod 4.5 gm/ Sodium Chloride) 100 mls @ 100 mls/hr IV ONETIME ONE Stop: 07/14/20 11:46 Last Admin: 07/14/20 11:34 Dose: 100 mls/hr Documented by: Vancomycin HCl 1 gm/ Sodium (Chloride) 250 mls @ 250 mls/hr IV Q12H [facility] Last Admin: 07/14/20 12:59 Dose: 250 mls/hr Documented by: Piperacillin Sod/Tazobactam (Sod 3.375 gm/ Sodium Chloride) 50 mls @ 100 mls/hr IV Q8H [facility] Piperacillin Sod/Tazobactam (Sod 3.375 gm/ Sodium Chloride) 50 mls @ 100 mls/hr IV Q6H [facility] Influenza Virus Vaccine (Pharmacy To Dose - Influenza Vaccine) 1 each IM ONETIME ONE Stop: 07/14/20 15:06 Influenza Virus Vaccine (Fluzone Quad [id number] Syringe) 60 mcg IM .ONCE ONE Stop: 07/14/20 15:16 Lorazepam (Ativan) 1 mg IVPUSH ONETIME ONE Stop: 07/14/20 22:55 Last Admin: 07/15/20 01:35 Dose: Not Given Documented by: Lorazepam (Ativan) 1 mg IVPUSH ONETIME ONE Stop: 07/15/20 01:46 Last Admin: 07/15/20 01:44 Dose: 1 mg Documented by: Ondansetron HCl (Zofran) 4 mg IVPUSH ONETIME ONE Stop: 07/14/20 08:47 Last Admin: 07/14/20 08:55 Dose: 4 mg Documented by: Vancomycin HCl (Pharmacy To Dose - Vancomycin) 1 dose .XX ONETIME ONE Stop: 07/14/20 10:48 Last Admin: 07/14/20 13:02 Dose: Not Given Documented by: - Exam General: Alert, Oriented, Cooperative HEENT: Pupils Equal, Pupils Reactive Lungs: Normal Respiratory Effort Cardiovascular: Regular Rate GI/Abdominal Exam: Soft, No Distention, No Mass, Tender (Mild tenderness with deep palpation in the RLQ ) Back Exam: Normal Inspection Extremities: Normal Inspection Sepsis Event Note - Evaluation Sepsis Screening Result: No Definite Risk - Focused Exam Vital Signs: Vital Signs Temp Pulse Resp BP Pulse Ox 07/15/20 03:00 36.1 C 68 18 135/60 95 07/14/20 23:10 36.2 C 71 16 111/58 L 94 L 07/14/20 20:00 36.7 C 77 17 127/59 L 95 Consult PN Assessment/Plan Procedures: Procedures ASSAY OF FREE THYROXINE (05/14/15) ASSAY OF MAGNESIUM (05/14/15) ASSAY OF TROPONIN QUANT (12/19/19) ASSAY THYROID STIM HORMONE (05/14/15) CHORIONIC GONADOTROPIN ASSAY (02/04/17) COMPLETE CBC W/AUTO DIFF WBC (12/19/19) COMPREHEN METABOLIC PANEL (12/19/19) CT ABD & PELV W/CONTRAST (12/19/19) CT HEAD/BRAIN W/O DYE (02/04/17) CT NECK SPINE W/O DYE (11/06/16) CT THORAX W/DYE (12/19/19) ELECTROCARDIOGRAM TRACING (12/19/19) EMERGENCY DEPT VISIT (03/14/20) EMERGENCY DEPT VISIT (12/19/19) EMERGENCY DEPT VISIT (02/04/17) EMERGENCY DEPT VISIT (11/06/16) EMERGENCY DEPT VISIT (05/14/15) HYDRATE IV INFUSION ADD-ON (05/14/15) HYDRATION IV INFUSION INIT (02/04/17) ROUTINE VENIPUNCTURE (12/19/19) THER/PROPH/DIAG INJ IV PUSH (12/19/19) THER/PROPH/DIAG INJ SC/IM (11/06/16) TX/PRO/DX INJ NEW DRUG ADDON (12/19/19) X-RAY EXAM OF ANKLE (05/01/16) X-RAY EXAM UNILAT RIBS/CHEST (02/04/17) (1) COVID-19 SNOMED Code(s): 035872545 Code(s): U07.1 - COVID-19 Current Visit: Yes (2) Enteritis SNOMED Code(s): 21003656 Code(s): K52.9 - NONINFECTIVE GASTROENTERITIS AND COLITIS, UNSPECIFIED Current Visit: Yes Problem List Initiated/Reviewed/Updated: Yes My Orders Last 24 Hours: My Active Orders 07/15/20 Breakfast Clear Liquid Diet [DIET] Plan: Patient appears to be improving. Her labs this morning show a slight increase in her BUN and Creatinine. She was likely dehydrated on admission. Her hgb has come down from 16 to 12 which fits that. Despite the RLQ pain (which is mild with no rebound of guarding) I still think her inflammation is due to covid. Thi s is improved from yesterday. The pain is likely from the inflammation at her terminal ileum. Her WBC is normal and there is no evidence of a neutrophilic or lymphocytic predominance. I would continue zosyn today and switch to levaquin tomorrow. She is ok to advance diet today to clears. If tolerating could advance to soft diet tonight. If no issues regular diet and possible discharge home tomorrow.
[2020-07-15] MEDS ORDERED: Potassium Chloride 20 MEQ Tab.ER PO ONE (08:07)
[2020-07-15] MEDS: Enoxaparin 100 MG/1 ML Syringe SUBCUT SCH (08:48)
[2020-07-15] MEDS: Pantoprazole 40 MG in Sodium Chloride 0.9% 10 ML IV SCH (16:51)
[2020-07-15] MEDS: Lactated Ringers 1,000 ML IV SCH (17:32)
[2020-07-15] MEDS: Morphine 4 MG/ML Syringe IVPUSH PRN (20:27)
[2020-07-15] MEDS ORDERED: Enoxaparin 100 MG/1 ML Syringe SUBCUT SCH (21:00)
--- NOTE | 2020-07-15 22:50 | PCM.PN ---
<Leonard Mie - Last Filed: 07/15/20 20:53> - General Info Date of Service: 07/15/20 Subjective Update: Patient denies nausea, vomiting, fever, chills. Patient states abdominal tenderness but better than previous day. Patient does state that she has an appetite and would like to try to eat something, patient's diet advanced to clear liquids. - Review of Systems General: Denies: Fever, Chills Pulmonary: Denies: Shortness of Breath, Cough Cardiovascular: Denies: Chest Pain, Dyspnea on Exertion Gastrointestinal: Denies: Abdominal Pain, Decreased Appetite, Nausea, Vomiting Neurological: Denies: Confusion, Dizziness, Headache - Patient Data Vitals - Most Recent: Last Vital Signs Temp 98.0 F 07/15/20 20:35 Pulse 72 07/15/20 20:35 Resp 18 07/15/20 20:35 BP 156/76 H 07/15/20 20:35 Pulse Ox 96 07/15/20 20:35 Weight - Most Recent: 65.1 kg I&O - Last 24 Hours: Intake & Output 07/15/20 07/15/20 07/15/20 06:59 14:59 22:59 Intake Total 550 Output Total 300 Balance -300 550 Lab Results Last 24 Hours: Laboratory Results - last 24 hr 07/14/20 07/15/20 07/15/20 Range/Units 11:05 05:39 05:39 WBC 5.52 (4.0-11.0) K/uL RBC 3.82 L (4.30-5.90) M/uL Hgb 12.2 (12.0-16.0) g/dL Hct 37.1 (36.0-46.0) % MCV 97.1 (80.0-98.0) fL MCH 31.9 (27.0-32.0) pg MCHC 32.9 (31.0-37.0) g/dL RDW Std Deviation 44.3 (28.0-62.0) fl RDW Coeff of Nacho 13 (11.0-15.0) % Plt Count 171 (150-400) K/uL MPV 10.90 (7.40-12.00) fL Neut % (Auto) 54.5 (48.0-80.0) % Lymph % (Auto) 27.2 (16.0-40.0) % Moffat % (Auto) 14.7 (0.0-15.0) % Eos % (Auto) 2.9 (0.0-7.0) % Baso % (Auto) 0.7 (0.0-1.5) % Neut # (Auto) 3.0 (1.4-5.7) K/uL Lymph # (Auto) 1.5 (0.6-2.4) K/uL Moffat # (Auto) 0.8 (0.0-0.8) K/uL Eos # (Auto) 0.2 (0.0-0.7) K/uL Baso # (Auto) 0.0 (0.0-0.1) K/uL Nucleated RBC % 0.0 /100WBC Nucleated RBCs # 0 K/uL Sodium 140 (136-145) mmol/L Potassium 3.4 L (3.5-5.1) mmol/L Chloride 107 (98-107) mmol/L Carbon Dioxide 21.5 (21.0-32.0) mmol/L BUN 11 (7.0-18.0) mg/dL Creatinine 1.2 H (0.6-1.0) mg/dL Est Cr Clr Drug Dosing 39.03 mL/min Estimated GFR (MDRD) 46.3 ml/min Glucose 83 (74-106) mg/dL Calcium 8.2 L (8.5-10.1) mg/dL Total Bilirubin 0.9 (0.2-1.0) mg/dL AST 23 (15-37) IU/L ALT 21 (14-63) IU/L Alkaline Phosphatase 105 (46-116) U/L Total Protein 6.0 L (6.4-8.2) g/dL Albumin 2.4 L (3.4-5.0) g/dL Globulin 3.6 (2.6-4.0) g/dL Albumin/Globulin Ratio 0.7 L (0.9-1.6) Procalcitonin <0.05 (<0.10) ng/mL Panfilo Results Last 24 Hours: Microbiology 07/15/20 00:10 C. difficile Antigen & Toxins A,B - Final Stool / Feces 07/15/20 00:10 Stool Occult Blood (PANFILO) - Final Stool / Feces Med Orders - Current: Current Medications Enalapril Maleate (Vasotec) 20 mg PO DAILY [facility] Last Admin: 07/15/20 08:50 Dose: 20 mg Documented by: Enoxaparin Sodium (Lovenox) 40 mg SUBCUT BID [facility] Last Admin: 07/15/20 20:23 Dose: 40 mg Documented by: Lactated Ringer's (Ringers, Lactated) 1,000 mls @ 125 mls/hr IV ASDIRECTED [facility] Last Admin: 07/15/20 17:32 Dose: 125 mls/hr Documented by: Piperacillin Sod/Tazobactam (Sod 3.375 gm/ Sodium Chloride) 50 mls @ 100 mls/hr IV Q6H [facility] Last Admin: 07/15/20 20:23 Dose: 100 mls/hr Documented by: Pantoprazole Sodium 40 mg/ (Sodium Chloride) 10 mls @ 300 mls/hr IV Q24H [facility] Last Admin: 07/15/20 16:51 Dose: 300 mls/hr Documented by: Vancomycin HCl 1 gm/ Sodium (Chloride) 250 mls @ 250 mls/hr IV Q24H [facility] Morphine Sulfate (Morphine) 4 mg IVPUSH Q4H PRN PRN Reason: Pain (severe 7-10) Last Admin: 07/15/20 20:27 Dose: 4 mg Documented by: Ondansetron HCl (Zofran) 4 mg IVPUSH Q6H PRN PRN Reason: Nausea/Vomiting Last Admin: 07/14/20 23:03 Dose: 4 mg Documented by: Sodium Chloride (Saline Flush) 2.5 ml FLUSH ASDIRECTED PRN PRN Reason: Keep Vein Open Last Admin: 07/14/20 11:38 Dose: 2.5 ml Documented by: Sodium Chloride (Saline Flush) 10 ml FLUSH ASDIRECTED PRN PRN Reason: Keep Vein Open Last Admin: 07/14/20 08:56 Dose: 10 ml Documented by: Discontinued Medications Enalapril Maleate (Vasotec) 40 mg PO DAILY [facility] Enoxaparin Sodium (Lovenox) 65 mg 1 mg/kg (65 mg) SUBCUT BID [facility] Last Admin: 07/15/20 08:48 Dose: 65 mg Documented by: Fentanyl (Fentanyl) 50 mcg IVPUSH ONETIME ONE Stop: 07/14/20 09:03 Last Admin: 07/14/20 09:06 Dose: 50 mcg Documented by: Fentanyl (Fentanyl) 50 mcg IVPUSH ONETIME ONE Stop: 07/14/20 11:46 Last Admin: 07/14/20 11:49 Dose: 50 mcg Documented by: Fentanyl (Fentanyl) Confirm Administered Dose 50 mcg .ROUTE .STK-MED ONE Stop: 07/14/20 11:46 Last Admin: 07/14/20 13:02 Dose: Not Given Documented by: Lactated Ringer's (Ringers, Lactated) 1,000 mls @ 999 mls/hr IV .BOLUS ONE Stop: 07/14/20 09:43 Last Admin: 07/14/20 08:55 Dose: 999 mls/hr Documented by: Piperacillin Sod/Tazobactam (Sod 4.5 gm/ Sodium Chloride) 100 mls @ 100 mls/hr IV ONETIME ONE Stop: 07/14/20 11:46 Last Admin: 07/14/20 11:34 Dose: 100 mls/hr Documented by: Vancomycin HCl 1 gm/ Sodium (Chloride) 250 mls @ 250 mls/hr IV Q12H [facility] Last Admin: 07/14/20 12:59 Dose: 250 mls/hr Documented by: Piperacillin Sod/Tazobactam (Sod 3.375 gm/ Sodium Chloride) 50 mls @ 100 mls/hr IV Q8H [facility] Vancomycin HCl 1 gm/ Sodium (Chloride) 250 mls @ 250 mls/hr IV Q12H [facility] Last Admin: 07/15/20 01:08 Dose: 250 mls/hr Documented by: Piperacillin Sod/Tazobactam (Sod 3.375 gm/ Sodium Chloride) 50 mls @ 100 mls/hr IV Q6H [facility] Influenza Virus Vaccine (Pharmacy To Dose - Influenza Vaccine) 1 each IM ONETIME ONE Stop: 07/14/20 15:06 Last Admin: 07/15/20 19:42 Dose: Not Given Documented by: Influenza Virus Vaccine (Fluzone Quad [id number] Syringe) 60 mcg IM .ONCE ONE Stop: 07/14/20 15:16 Last Admin: 07/15/20 19:43 Dose: Not Given Documented by: Lorazepam (Ativan) 1 mg IVPUSH ONETIME ONE Stop: 07/14/20 22:55 Last Admin: 07/15/20 01:35 Dose: Not Given Documented by: Lorazepam (Ativan) 1 mg IVPUSH ONETIME ONE Stop: 07/15/20 01:46 Last Admin: 07/15/20 01:44 Dose: 1 mg Documented by: Ondansetron HCl (Zofran) 4 mg IVPUSH ONETIME ONE Stop: 07/14/20 08:47 Last Admin: 07/14/20 08:55 Dose: 4 mg Documented by: Potassium Chloride (Klor-Con M20) 40 meq PO ONETIME ONE Stop: 07/15/20 08:08 Last Admin: 07/15/20 08:48 Dose: 40 meq Documented by: Vancomycin HCl (Pharmacy To Dose - Vancomycin) 1 dose .XX ONETIME ONE Stop: 07/14/20 10:48 Last Admin: 07/14/20 13:02 Dose: Not Given Documented by: - Exam Quality Assessment: No: Supplemental Oxygen General: Alert, Oriented Lungs: Clear to Auscultation, Normal Respiratory Effort Cardiovascular: Regular Rate, Regular Rhythm GI/Abdominal Exam: Normal Bowel Sounds, Soft, Tender Extremities: No Pedal Edema Psy/Mental Status: Alert Sepsis Event Note - Evaluation Sepsis Screening Result: No Definite Risk - Focused Exam Vital Signs: Vital Signs Temp Pulse Resp BP BP Pulse Ox 07/15/20 20:35 98.0 F 72 18 156/76 H 96 07/15/20 16:54 97.8 F 68 18 140/75 96 07/15/20 13:30 98.5 F 73 18 136/81 96 07/15/20 08:59 97.8 F 75 18 121/62 94 L - Problem List & Annotations (1) COVID-19 SNOMED Code(s): 646354343 Code(s): U07.1 - COVID-19 Status: Acute (2) Enteritis SNOMED Code(s): 63166059 Code(s): K52.9 - NONINFECTIVE GASTROENTERITIS AND COLITIS, UNSPECIFIED Status: Acute (3) Right ankle sprain SNOMED Code(s): 87544978 Status: Acute - Problem List Review Problem List Initiated/Reviewed/Updated: Yes - My Orders Last 24 Hours: My Active Orders 07/14/20 20:00 Piperacillin/Tazobactam [Piperacil-Tazobact] 3.375 gm Sodium Chloride 0.9% [Normal Saline] 50 ml IV Q6H 07/15/20 21:00 Enoxaparin [Lovenox] 40 mg SUBCUT BID 07/16/20 05:11 CBC WITH AUTO DIFF [HEME] AM CMP [COMPREHENSIVE METABOLIC PN,CMP] [CHEM] AM - Plan Plan:: Enteritis- LR 125 mls/hr, vancomycin, Zosyn Q6, NPO, clear diet, Lovenox 40 mg BID, PPI COVID-patient is currently 94-96% oxygen saturation on room air, thus does not require remdesivir, dexamethasone. Will adjust as needed based on patient's symptoms. We will continue to encourage incentive spirometry. <Marcello Kidd - Last Filed: 07/16/20 21:14> - Patient Data Vitals - Most Recent: Last Vital Signs Temp 36.1 C 07/16/20 12:40 Pulse 68 07/16/20 12:40 Resp 18 07/16/20 12:40 BP 152/77 H 07/16/20 12:40 Pulse Ox 98 07/16/20 12:40 I&O - Last 24 Hours: Intake & Output 07/16/20 07/16/20 07/16/20 06:59 14:59 22:59 Intake Total 2420 500 Balance 2420 500 Lab Results Last 24 Hours: Laboratory Results - last 24 hr 07/16/20 07/16/20 Range/Units 04:54 04:54 WBC 5.06 (4.0-11.0) K/uL RBC 3.73 L (4.30-5.90) M/uL Hgb 12.1 (12.0-16.0) g/dL Hct 36.1 (36.0-46.0) % MCV 96.8 (80.0-98.0) fL MCH 32.4 H (27.0-32.0) pg MCHC 33.5 (31.0-37.0) g/dL RDW Std Deviation 44.1 (28.0-62.0) fl RDW Coeff of Nacho 12 (11.0-15.0) % Plt Count 203 (150-400) K/uL MPV 10.20 (7.40-12.00) fL Neut % (Auto) 50.2 (48.0-80.0) % Lymph % (Auto) 32.2 (16.0-40.0) % Moffat % (Auto) 13.4 (0.0-15.0) % Eos % (Auto) 3.4 (0.0-7.0) % Baso % (Auto) 0.8 (0.0-1.5) % Neut # (Auto) 2.5 (1.4-5.7) K/uL Lymph # (Auto) 1.6 (0.6-2.4) K/uL Moffat # (Auto) 0.7 (0.0-0.8) K/uL Eos # (Auto) 0.2 (0.0-0.7) K/uL Baso # (Auto) 0.0 (0.0-0.1) K/uL Nucleated RBC % 0.0 /100WBC Nucleated RBCs # 0 K/uL Sodium 143 (136-145) mmol/L Potassium 3.4 L (3.5-5.1) mmol/L Chloride 109 H (98-107) mmol/L Carbon Dioxide 20.8 L (21.0-32.0) mmol/L BUN 10 (7.0-18.0) mg/dL Creatinine 1.3 H (0.6-1.0) mg/dL Est Cr Clr Drug Dosing 36.03 mL/min Estimated GFR (MDRD) 42.2 ml/min Glucose 95 (74-106) mg/dL Calcium 8.1 L (8.5-10.1) mg/dL Total Bilirubin 0.6 (0.2-1.0) mg/dL AST 31 (15-37) IU/L ALT 23 (14-63) IU/L Alkaline Phosphatase 112 (46-116) U/L Total Protein 5.9 L (6.4-8.2) g/dL Albumin 2.3 L (3.4-5.0) g/dL Globulin 3.6 (2.6-4.0) g/dL Albumin/Globulin Ratio 0.6 L (0.9-1.6) Med Orders - Current: Current Medications Discontinued Medications Enalapril Maleate (Vasotec) 40 mg PO DAILY [facility] Enalapril Maleate (Vasotec) 20 mg PO DAILY [facility] Last Admin: 07/16/20 08:12 Dose: 20 mg Documented by: Enoxaparin Sodium (Lovenox) 65 mg 1 mg/kg (65 mg) SUBCUT BID [facility] Last Admin: 07/15/20 08:48 Dose: 65 mg Documented by: Enoxaparin Sodium (Lovenox) 40 mg SUBCUT BID [facility] Last Admin: 07/15/20 20:23 Dose: 40 mg Documented by: Enoxaparin Sodium (Lovenox) 40 mg SUBCUT BID [facility] Last Admin: 07/16/20 08:13 Dose: 40 mg Documented by: Fentanyl (Fentanyl) 50 mcg IVPUSH ONETIME ONE Stop: 07/14/20 09:03 Last Admin: 07/14/20 09:06 Dose: 50 mcg Documented by: Fentanyl (Fentanyl) 50 mcg IVPUSH ONETIME ONE Stop: 07/14/20 11:46 Last Admin: 07/14/20 11:49 Dose: 50 mcg Documented by: Fentanyl (Fentanyl) Confirm Administered Dose 50 mcg .ROUTE .STK-MED ONE Stop: 07/14/20 11:46 Last Admin: 07/14/20 13:02 Dose: Not Given Documented by: Lactated Ringer's (Ringers, Lactated) 1,000 mls @ 999 mls/hr IV .BOLUS ONE Stop: 07/14/20 09:43 Last Admin: 07/14/20 08:55 Dose: 999 mls/hr Documented by: Piperacillin Sod/Tazobactam (Sod 4.5 gm/ Sodium Chloride) 100 mls @ 100 mls/hr IV ONETIME ONE Stop: 07/14/20 11:46 Last Admin: 07/14/20 11:34 Dose: 100 mls/hr Documented by: Vancomycin HCl 1 gm/ Sodium (Chloride) 250 mls @ 250 mls/hr IV Q12H [facility] Last Admin: 07/14/20 12:59 Dose: 250 mls/hr Documented by: Piperacillin Sod/Tazobactam (Sod 3.375 gm/ Sodium Chloride) 50 mls @ 100 mls/hr IV Q8H [facility] Vancomycin HCl 1 gm/ Sodium (Chloride) 250 mls @ 250 mls/hr IV Q12H [facility] Last Admin: 07/15/20 01:08 Dose: 250 mls/hr Documented by: Lactated Ringer's (Ringers, Lactated) 1,000 mls @ 125 mls/hr IV ASDIRECTED [facility] Last Admin: 07/16/20 11:24 Dose: 125 mls/hr Documented by: Piperacillin Sod/Tazobactam (Sod 3.375 gm/ Sodium Chloride) 50 mls @ 100 mls/hr IV Q6H [facility] Piperacillin Sod/Tazobactam (Sod 3.375 gm/ Sodium Chloride) 50 mls @ 100 mls/hr IV Q6H [facility] Last Admin: 07/16/20 14:20 Dose: Not Given Documented by: Pantoprazole Sodium 40 mg/ (Sodium Chloride) 10 mls @ 300 mls/hr IV Q24H [facility] Last Admin: 07/15/20 16:51 Dose: 300 mls/hr Documented by: Vancomycin HCl 1 gm/ Sodium (Chloride) 250 mls @ 250 mls/hr IV Q24H [facility] Last Admin: 07/16/20 00:17 Dose: 250 mls/hr Documented by: Influenza Virus Vaccine (Pharmacy To Dose - Influenza Vaccine) 1 each IM ONETIME ONE Stop: 07/14/20 15:06 Last Admin: 07/15/20 19:42 Dose: Not Given Documented by: Influenza Virus Vaccine (Fluzone Quad [id number] Syringe) 60 mcg IM .ONCE ONE Stop: 07/14/20 15:16 Last Admin: 07/15/20 19:43 Dose: Not Given Documented by: Lorazepam (Ativan) 1 mg IVPUSH ONETIME ONE Stop: 07/14/20 22:55 Last Admin: 07/15/20 01:35 Dose: Not Given Documented by: Lorazepam (Ativan) 1 mg IVPUSH ONETIME ONE Stop: 07/15/20 01:46 Last Admin: 07/15/20 01:44 Dose: 1 mg Documented by: Lorazepam (Ativan) 1 mg IVPUSH ONETIME ONE Stop: 07/15/20 22:53 Last Admin: 07/16/20 00:16 Dose: 1 mg Documented by: Morphine Sulfate (Morphine) 4 mg IVPUSH Q4H PRN PRN Reason: Pain (severe 7-10) Last Admin: 07/15/20 20:27 Dose: 4 mg Documented by: Ondansetron HCl (Zofran) 4 mg IVPUSH ONETIME ONE Stop: 07/14/20 08:47 Last Admin: 07/14/20 08:55 Dose: 4 mg Documented by: Ondansetron HCl (Zofran) 4 mg IVPUSH Q6H PRN PRN Reason: Nausea/Vomiting Last Admin: 07/14/20 23:03 Dose: 4 mg Documented by: Potassium Chloride (Klor-Con M20) 40 meq PO ONETIME ONE Stop: 07/15/20 08:08 Last Admin: 07/15/20 08:48 Dose: 40 meq Documented by: Potassium Chloride (Klor-Con M20) 40 meq PO ONETIME ONE Stop: 07/16/20 07:48 Last Admin: 07/16/20 09:57 Dose: 40 meq Documented by: Sodium Chloride (Saline Flush) 2.5 ml FLUSH ASDIRECTED PRN PRN Reason: Keep Vein Open Last Admin: 07/14/20 11:38 Dose: 2.5 ml Documented by: Sodium Chloride (Saline Flush) 10 ml FLUSH ASDIRECTED PRN PRN Reason: Keep Vein Open Last Admin: 07/14/20 08:56 Dose: 10 ml Documented by: Vancomycin HCl (Pharmacy To Dose - Vancomycin) 1 dose .XX ONETIME ONE Stop: 07/14/20 10:48 Last Admin: 07/14/20 13:02 Dose: Not Given Documented by: Sepsis Event Note - Focused Exam Vital Signs: Vital Signs Temp Pulse Resp BP Pulse Ox 07/16/20 12:40 36.1 C 68 18 152/77 H 98 - Plan Plan:: I have seen and evaluated the patient and agree with the residents note unless specified in my note
[2020-07-16] MEDS: Lactated Ringers 1,000 ML IV SCH ×2 (01:37→11:24)
[2020-07-16 05:36] LABS: POTASSIUM,K 3.4 mmol/L (3.5-5.1)
[2020-07-16 06:07] LABS: CARBON DIOXIDE,CO2 20.8 mmol/L (21.0-32.0)
[2020-07-16] MEDS ORDERED: Potassium Chloride 20 MEQ Tab.ER PO ONE (07:47)
[2020-07-16] MEDS: Piperacillin/Tazobactam 3.375 GM in Sodium Chloride 0.9% 50 ML IV SCH ×3 (08:12→14:20)
[2020-07-16 08:15] VITALS: PULSE 68
[2020-07-16] MEDS ORDERED: Enoxaparin 40 MG/0.4 ML Syringe SUBCUT SCH (09:00)
[2020-07-16 12:41] VITALS: BP 152/77
--- NOTE | 2020-07-16 14:23 | PCM.DCSUM1 ---
Discharge Summary - Hospital Course Free Text/Narrative:: 59 year old female admitted for enteritis. Patient presented to the ED today with abdominal pain, nausea, vomiting and diarrhea. Patient states that she developed crampy sharp pains across her abdomen yesterday evening. She also has been having bouts of diarrhea, and states bright red blood per rectum with bowel movements. Denies fever, chills states general fatigue and a productive cough. Patient has been in contact with her daughter and ex- both of whom are Covid positive. Patient states past medical history of hypertension. Patient is a 1 to 2 pack/week smoker. WBC on admission 7.7, with elevated ferritin and CRP. Patient is COVID positive. CT abdomen pelvis was performed that showed Inflammation of the terminal ileum, with possible uncomplicated appendicitis. Patient treated with IV fluids, vancomycin, Zosyn, diet advanced to soft which she tolerated well. Patient's oxygen saturation was roughly 96-98% throughout admission and thus did not require remdesivir and dexamethasone. Patient was seen by general surgery who recommended IV antibiotics, advance diet as tolerated and discharge patient on oral antibiotics when medically stable. At discharge patient complained of no abdominal pain, abdomen was soft. Patient discharged home on 5 days of Levaquin and recommended a soft diet for 2 days and advance as tolerated. - Discharge Data Discharge Date: 07/16/20 Discharge Disposition: Home, Self-Care 01 Condition: Fair - Referral to Home Health Primary Care Physician: Nati Draper MD - Discharge Diagnosis/Problem(s) (1) COVID-19 SNOMED Code(s): 163293666 ICD Code: U07.1 - COVID-19 Status: Acute Current Visit: Yes (2) Enteritis SNOMED Code(s): 98704129 ICD Code: K52.9 - NONINFECTIVE GASTROENTERITIS AND COLITIS, UNSPECIFIED Status: Acute Current Visit: Yes (3) Right ankle sprain SNOMED Code(s): 61216736 Status: Acute Current Visit: No - Patient Instructions Diet: Mechanical Soft (soft diet for two days, advance as tolerated afterwards) Activity: As Tolerated Driving: Do Not Drive Showering/Bathing: May Shower Notify Provider of: Fever, Increased Pain, Swelling and Redness, Drainage, Nausea and/or Vomiting Other/Special Instructions: Please visit ED if expierencing sudden shortness of breath, chest pain, abdominal pain, fever. - Discharge Plan *PRESCRIPTION DRUG MONITORING PROGRAM REVIEWED*: Not Applicable *COPY OF PRESCRIPTION DRUG MONITORING REPORT IN PATIENT OSCAR: Not Applicable Prescriptions/Med Rec: levoFLOXacin [Levaquin] 750 mg PO DAILY 5 Days #5 tab Home Medications: Home Meds Enalapril Maleate 20 mg PO DAILY 07/14/20 [History] levoFLOXacin [Levaquin] 750 mg PO DAILY 5 Days #5 tab 07/16/20 [Rx] Patient Handouts: COVID-19, Food Choices to Help Relieve Diarrhea, Adult, General Headache Without Cause, [id number], Levofloxacin tablets Forms: ED Department Discharge Referrals: Nati Draper MD [Primary Care Provider] - 07/29/20 9:00 am - Discharge Summary/Plan Comment DC Time >30 min.: Yes - Review of Systems General: Denies: Fever, Chills Pulmonary: Denies: Shortness of Breath, Pleuritic Chest Pain Cardiovascular: Denies: Chest Pain Gastrointestinal: Denies: Abdominal Pain, Nausea, Vomiting Neurological: Denies: Confusion, Dizziness - Patient Data Vitals - Most Recent: Last Vital Signs Temp 97.0 F 07/16/20 12:40 Pulse 68 07/16/20 12:40 Resp 18 07/16/20 12:40 BP 152/77 H 07/16/20 12:40 Pulse Ox 98 07/16/20 12:40 Weight - Most Recent: 143 lb 8.335 oz I&O - Last 24 hours: Intake & Output 07/15/20 07/16/20 07/16/20 22:59 06:59 14:59 Intake Total 550 2420 500 Balance 550 2420 500 Lab Results - Last 24 hrs: Laboratory Results - last 24 hr 07/16/20 07/16/20 Range/Units 04:54 04:54 WBC 5.06 (4.0-11.0) K/uL RBC 3.73 L (4.30-5.90) M/uL Hgb 12.1 (12.0-16.0) g/dL Hct 36.1 (36.0-46.0) % MCV 96.8 (80.0-98.0) fL MCH 32.4 H (27.0-32.0) pg MCHC 33.5 (31.0-37.0) g/dL RDW Std Deviation 44.1 (28.0-62.0) fl RDW Coeff of Nacho 12 (11.0-15.0) % Plt Count 203 (150-400) K/uL MPV 10.20 (7.40-12.00) fL Neut % (Auto) 50.2 (48.0-80.0) % Lymph % (Auto) 32.2 (16.0-40.0) % Douglas % (Auto) 13.4 (0.0-15.0) % Eos % (Auto) 3.4 (0.0-7.0) % Baso % (Auto) 0.8 (0.0-1.5) % Neut # (Auto) 2.5 (1.4-5.7) K/uL Lymph # (Auto) 1.6 (0.6-2.4) K/uL Douglas # (Auto) 0.7 (0.0-0.8) K/uL Eos # (Auto) 0.2 (0.0-0.7) K/uL Baso # (Auto) 0.0 (0.0-0.1) K/uL Nucleated RBC % 0.0 /100WBC Nucleated RBCs # 0 K/uL Sodium 143 (136-145) mmol/L Potassium 3.4 L (3.5-5.1) mmol/L Chloride 109 H (98-107) mmol/L Carbon Dioxide 20.8 L (21.0-32.0) mmol/L BUN 10 (7.0-18.0) mg/dL Creatinine 1.3 H (0.6-1.0) mg/dL Est Cr Clr Drug Dosing 36.03 mL/min Estimated GFR (MDRD) 42.2 ml/min Glucose 95 (74-106) mg/dL Calcium 8.1 L (8.5-10.1) mg/dL Total Bilirubin 0.6 (0.2-1.0) mg/dL AST 31 (15-37) IU/L ALT 23 (14-63) IU/L Alkaline Phosphatase 112 (46-116) U/L Total Protein 5.9 L (6.4-8.2) g/dL Albumin 2.3 L (3.4-5.0) g/dL Globulin 3.6 (2.6-4.0) g/dL Albumin/Globulin Ratio 0.6 L (0.9-1.6) Med Orders - Current: Current Medications Enalapril Maleate (Vasotec) 20 mg PO DAILY [facility] Last Admin: 07/16/20 08:12 Dose: 20 mg Documented by: Enoxaparin Sodium (Lovenox) 40 mg SUBCUT BID [facility] Last Admin: 07/16/20 08:13 Dose: 40 mg Documented by: Lactated Ringer's (Ringers, Lactated) 1,000 mls @ 125 mls/hr IV ASDIRECTED [facility] Last Admin: 07/16/20 11:24 Dose: 125 mls/hr Documented by: Piperacillin Sod/Tazobactam (Sod 3.375 gm/ Sodium Chloride) 50 mls @ 100 mls/hr IV Q6H [facility] Last Admin: 07/16/20 08:12 Dose: 100 mls/hr Documented by: Pantoprazole Sodium 40 mg/ (Sodium Chloride) 10 mls @ 300 mls/hr IV Q24H [facility] Last Admin: 07/15/20 16:51 Dose: 300 mls/hr Documented by: Morphine Sulfate (Morphine) 4 mg IVPUSH Q4H PRN PRN Reason: Pain (severe 7-10) Last Admin: 07/15/20 20:27 Dose: 4 mg Documented by: Ondansetron HCl (Zofran) 4 mg IVPUSH Q6H PRN PRN Reason: Nausea/Vomiting Last Admin: 07/14/20 23:03 Dose: 4 mg Documented by: Sodium Chloride (Saline Flush) 2.5 ml FLUSH ASDIRECTED PRN PRN Reason: Keep Vein Open Last Admin: 07/14/20 11:38 Dose: 2.5 ml Documented by: Sodium Chloride (Saline Flush) 10 ml FLUSH ASDIRECTED PRN PRN Reason: Keep Vein Open Last Admin: 07/14/20 08:56 Dose: 10 ml Documented by: Discontinued Medications Enalapril Maleate (Vasotec) 40 mg PO DAILY [facility] Enoxaparin Sodium (Lovenox) 65 mg 1 mg/kg (65 mg) SUBCUT BID [facility] Last Admin: 07/15/20 08:48 Dose: 65 mg Documented by: Enoxaparin Sodium (Lovenox) 40 mg SUBCUT BID [facility] Last Admin: 07/15/20 20:23 Dose: 40 mg Documented by: Fentanyl (Fentanyl) 50 mcg IVPUSH ONETIME ONE Stop: 07/14/20 09:03 Last Admin: 07/14/20 09:06 Dose: 50 mcg Documented by: Fentanyl (Fentanyl) 50 mcg IVPUSH ONETIME ONE Stop: 07/14/20 11:46 Last Admin: 07/14/20 11:49 Dose: 50 mcg Documented by: Fentanyl (Fentanyl) Confirm Administered Dose 50 mcg .ROUTE .STK-MED ONE Stop: 07/14/20 11:46 Last Admin: 07/14/20 13:02 Dose: Not Given Documented by: Lactated Ringer's (Ringers, Lactated) 1,000 mls @ 999 mls/hr IV .BOLUS ONE Stop: 07/14/20 09:43 Last Admin: 07/14/20 08:55 Dose: 999 mls/hr Documented by: Piperacillin Sod/Tazobactam (Sod 4.5 gm/ Sodium Chloride) 100 mls @ 100 mls/hr IV ONETIME ONE Stop: 07/14/20 11:46 Last Admin: 07/14/20 11:34 Dose: 100 mls/hr Documented by: Vancomycin HCl 1 gm/ Sodium (Chloride) 250 mls @ 250 mls/hr IV Q12H [facility] Last Admin: 07/14/20 12:59 Dose: 250 mls/hr Documented by: Piperacillin Sod/Tazobactam (Sod 3.375 gm/ Sodium Chloride) 50 mls @ 100 mls/hr IV Q8H [facility] Vancomycin HCl 1 gm/ Sodium (Chloride) 250 mls @ 250 mls/hr IV Q12H [facility] Last Admin: 07/15/20 01:08 Dose: 250 mls/hr Documented by: Piperacillin Sod/Tazobactam (Sod 3.375 gm/ Sodium Chloride) 50 mls @ 100 mls/hr IV Q6H [facility] Vancomycin HCl 1 gm/ Sodium (Chloride) 250 mls @ 250 mls/hr IV Q24H [facility] Last Admin: 07/16/20 00:17 Dose: 250 mls/hr Documented by: Influenza Virus Vaccine (Pharmacy To Dose - Influenza Vaccine) 1 each IM ONETIME ONE Stop: 07/14/20 15:06 Last Admin: 07/15/20 19:42 Dose: Not Given Documented by: Influenza Virus Vaccine (Fluzone Quad [id number] Syringe) 60 mcg IM .ONCE ONE Stop: 07/14/20 15:16 Last Admin: 07/15/20 19:43 Dose: Not Given Documented by: Lorazepam (Ativan) 1 mg IVPUSH ONETIME ONE Stop: 07/14/20 22:55 Last Admin: 07/15/20 01:35 Dose: Not Given Documented by: Lorazepam (Ativan) 1 mg IVPUSH ONETIME ONE Stop: 07/15/20 01:46 Last Admin: 07/15/20 01:44 Dose: 1 mg Documented by: Lorazepam (Ativan) 1 mg IVPUSH ONETIME ONE Stop: 07/15/20 22:53 Last Admin: 07/16/20 00:16 Dose: 1 mg Documented by: Ondansetron HCl (Zofran) 4 mg IVPUSH ONETIME ONE Stop: 07/14/20 08:47 Last Admin: 07/14/20 08:55 Dose: 4 mg Documented by: Potassium Chloride (Klor-Con M20) 40 meq PO ONETIME ONE Stop: 07/15/20 08:08 Last Admin: 07/15/20 08:48 Dose: 40 meq Documented by: Potassium Chloride (Klor-Con M20) 40 meq PO ONETIME ONE Stop: 07/16/20 07:48 Last Admin: 07/16/20 09:57 Dose: 40 meq Documented by: Vancomycin HCl (Pharmacy To Dose - Vancomycin) 1 dose .XX ONETIME ONE Stop: 07/14/20 10:48 Last Admin: 07/14/20 13:02 Dose: Not Given Documented by: - Exam General: Reports: Alert, Oriented Lungs: Reports: Clear to Auscultation, Normal Respiratory Effort Cardiovascular: Reports: Regular Rate, Regular Rhythm GI/Abdominal Exam: Normal Bowel Sounds, Soft, Non-Tender Extremities: No Pedal Edema
== END 2020-07-16 14:20 | disposition home or self-care (01) ==
LOC: MW.ED 08:29 → MW.MS 11:34
PROVIDERS: ADMIT Student in an Organized Health Care Education/Training Program; ATTEND Student in an Organized Health Care Education/Training Program
DX: U07.1 COVID-19 (principal); K52.9 Noninfective gastroenteritis and colitis, unspecified; S93.401D Sprain of unspecified ligament of right ankle, subsequent encounter; F17.210 Nicotine dependence, cigarettes, uncomplicated; Z79.899 Other long term (current) drug therapy; Z88.5 Allergy status to narcotic agent; X58.XXXD Exposure to other specified factors, subsequent encounter; I10 Essential (primary) hypertension
CPT/HCPCS: 36415; 71045; 74176; 80053; 81001; 82272; 82728; 83605; 83615; 83690; 83735; 84145; 84484; 85025; 85379; 85610; 85730; 86140; 87324; 87635; 93005; 96361; 96365; 96366; 96367; 96372; 96375; 96376; 99285; A9270; C9113; G0378; J1650; J2060; J2270; J2405; J2543; J3010; J3370; J7050; J7120; 93010; U0002

== ENCOUNTER 2020-11-28 07:36 | Emergency (ER) | payer SELFPAY ==
[2020-11-28] MEDS ORDERED: Dextrose 5%-0.9% NaCl 1,000 ML IV SCH (08:00)
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
[2020-11-28 09:03] LABS: ACETAMINOPHEN <2.0 ug/mL; BLOOD UREA NITROGEN,BUN 10 mg/dL (7.0-18.0); CARBON DIOXIDE,CO2 22.6 mmol/L (21.0-32.0); CHLORIDE,CL 106 mmol/L (98-107); GLUCOSE RANDOM 92 mg/dL (74-106); POTASSIUM,K 3.9 mmol/L (3.5-5.1); SODIUM,NA 144 mmol/L (136-145)
--- NOTE | 2020-11-28 09:11 | CT ---
INDICATION: Altered mental status; intoxication. COMPARISON: Unenhanced CT head February 04, 2017. TECHNIQUE: CT head without intravenous contrast; coronal and sagittal reformats. FINDINGS: No intracranial hemorrhage. No mass lesions. No evidence of shift of the midline structures. The calvarium is unremarkable. The ventricular system, the subarachnoid cisterns and the cerebral sulci are unremarkable. No interval change. IMPRESSION: Negative unenhanced head CT. Please note that all CT scans at this facility use dose modulation, iterative reconstruction, and/or weight-based dosing when appropriate to reduce radiation dose to as low as reasonably achievable. Dictated by Sarina Weber MD @ 11/28/2020 9:10:[address] Sarina Weber @ Nov 28 2020 9:10AM
[2020-11-28] MEDS ORDERED: Cephalexin 500 MG Cap PO ONE (14:26)
[2020-11-28] MEDS ORDERED: metroNIDAZOLE 250 MG Tab PO ONE (15:22)
[2020-11-28 15:54] VITALS: BP 132/53; PULSE 100
[2020-12-02 12:07] LABS: C.TRACHOMATIS BY TMA Negative (Negative); N.GONORRHOEAE BY TMA Negative (Negative)
== END 2020-11-28 15:56 | disposition home or self-care (01) ==
LOC: MW.ED 07:36
DX: N95.0 Postmenopausal bleeding (principal); F10.129 Alcohol abuse with intoxication, unspecified; I10 Essential (primary) hypertension; Z88.5 Allergy status to narcotic agent; Y90.8 Blood alcohol level of 240 mg/100 ml or more
CPT/HCPCS: 36415; 70450; 80053; 80143; 80179; 80305; 80307; 81001; 82550; 83735; 84703; 85025; 87086; 87088; 87186; 87480; 87491; 87510; 87591; 87660; 93005; 99284; A9270; J7042; 93010

== ENCOUNTER 2021-10-06 22:02 | Emergency (ER) | payer MEDICAID, OTHER ==
[2021-10-06 22:33] LABS: BLOOD UREA NITROGEN,BUN 7 mg/dL (7.0-18.0); CHLORIDE,CL 108 mmol/L (98-107); GLUCOSE RANDOM 109 mg/dL (74-106); POTASSIUM,K 3.4 mmol/L (3.5-5.1); SODIUM,NA 144 mmol/L (136-145)
[2021-10-07 00:49] VITALS: BP 111/67; PULSE 71
== END 2021-10-07 01:11 | disposition home or self-care (01) ==
LOC: MW.ED 22:02
DX: G93.40 Encephalopathy, unspecified (principal); F10.129 Alcohol abuse with intoxication, unspecified; I10 Essential (primary) hypertension; Z88.5 Allergy status to narcotic agent; Z72.0 Tobacco use; Y90.8 Blood alcohol level of 240 mg/100 ml or more
CPT/HCPCS: 36415; 51702; 70450; 70450-26; 71045; 71045-26; 80053; 80305-QW; 80307; 81001; 82550; 83605; 83735; 84484; 84703; 85025; 93005; 99285-25

== ENCOUNTER 2022-01-11 16:42 | Emergency (ER) | payer MEDICAID ==
[2022-01-11] MEDS ORDERED: Ondansetron 4 MG/2 ML SDV IVPUSH ONE (17:02)
[2022-01-11] MEDS ORDERED: Ketorolac 30 MG/ML SDV IVPUSH ONE (17:02)
[2022-01-11] MEDS ORDERED: Sodium Chloride 0.9% 1,000 ML IV ONE (17:02)
[2022-01-11] MEDS ORDERED: diphenhydrAMINE 50 MG/ML SDV IVPUSH ONE (17:09)
[2022-01-11] MEDS ORDERED: methylPREDNISolone Sodium Succinate 125 MG/2 ML SDV IVPUSH ONE (17:09)
[2022-01-11 18:15] LABS: BLOOD UREA NITROGEN,BUN 9 mg/dL (7.0-18.0); CHLORIDE,CL 100 mmol/L (98-107); GLUCOSE RANDOM 124 mg/dL (74-106); LIPASE 74 U/L (73-393); POTASSIUM,K 3.8 mmol/L (3.5-5.1); SODIUM,NA 138 mmol/L (136-145)
[2022-01-11 18:17] LABS: CORONAVIRUS COVID-19 NAA NEGATIVE (NEGATIVE); INFLUENZA A NAA NEGATIVE (NEGATIVE); INFLUENZA B NAA NEGATIVE (NEGATIVE)
[2022-01-11] MEDS ORDERED: Amoxicillin/Clavulanate K 500-125 MG Tab PO ONE (19:24)
[2022-01-11 20:03] VITALS: BP 132/71; PULSE 67
== END 2022-01-11 20:03 | disposition home or self-care (01) ==
LOC: MW.ED 16:42
DX: N30.00 Acute cystitis without hematuria (principal); I10 Essential (primary) hypertension; Z88.8 Allergy status to other drugs, medicaments and biological substances; Z20.822 Contact with and (suspected) exposure to COVID-19
CPT/HCPCS: 0240U; 36415; 80053; 80305; 80307; 81001; 83690; 84484; 85025; 87086; 87651; 93005; 96361; 96374; 96375; 99284; A9270; J1200; J1885; J2405; J2930; J7030; 93010; 99283

== ENCOUNTER 2022-01-30 08:32 | Emergency (ER) | payer MEDICAID ==
[2022-01-30 09:45] LABS: ACETAMINOPHEN <2.0 ug/mL; BLOOD UREA NITROGEN,BUN 4 mg/dL (7.0-18.0); CARBON DIOXIDE,CO2 23.2 mmol/L (21.0-32.0); CHLORIDE,CL 107 mmol/L (98-107); GLUCOSE RANDOM 107 mg/dL (74-106); SODIUM,NA 143 mmol/L (136-145)
[2022-01-30 09:49] LABS: ESTIMATED GFR 108 mL/min (>60)
[2022-01-30] MEDS ORDERED: Thiamine 100 MG in Sodium Chloride 0.9% 100 ML IV ONE (10:51)
[2022-01-30] MEDS ORDERED: Potassium Chloride 10% 20 MEQ/15 ML Soln 30 ML UD Cup PO ONE (11:14)
[2022-01-30] MEDS ORDERED: Potassium Chloride 20 MEQ in Premix Bag 1 BAG IV ONE ×2 (11:14→12:45)
[2022-01-30] MEDS ORDERED: Thiamine 200 MG/2 ML MDV IVPUSH ONE (11:15)
[2022-01-30] MEDS ORDERED: Sodium Chloride 0.9% 1,000 ML IV SCH (11:15)
[2022-01-30 16:12] VITALS: BP 144/85; PULSE 80
== END 2022-01-30 16:20 | disposition home or self-care (01) ==
LOC: MW.ED 08:32
DX: F10.129 Alcohol abuse with intoxication, unspecified (principal); R45.850 Homicidal ideations; R45.851 Suicidal ideations; I10 Essential (primary) hypertension; Z88.5 Allergy status to narcotic agent; Z79.899 Other long term (current) drug therapy; Z20.822 Contact with and (suspected) exposure to COVID-19; Y90.8 Blood alcohol level of 240 mg/100 ml or more
CPT/HCPCS: 36415; 80053; 80143; 80179; 80305; 80307; 81001; 82550; 83735; 84443; 84703; 85025; 87635; 96361; 96365; 96366; 96375; 99284; A9270; J3411; J3480; J7030; 99285; U0002

== ENCOUNTER 2022-03-07 03:19 | Emergency (ER) | payer MEDICAID ==
[2022-03-07] MEDS ORDERED: Sodium Chloride 0.9% 1,000 ML IV ONE (03:23)
[2022-03-07 04:22] LABS: BLOOD UREA NITROGEN,BUN 7 mg/dL (7.0-18.0); CARBON DIOXIDE,CO2 22.9 mmol/L (21.0-32.0); CHLORIDE,CL 110 mmol/L (98-107); GLUCOSE RANDOM 96 mg/dL (74-106); POTASSIUM,K 3.4 mmol/L (3.5-5.1); SODIUM,NA 148 mmol/L (136-145)
[2022-03-07 04:43] LABS: ESTIMATED GFR 108 mL/min (>60)
[2022-03-07 05:08] LABS: LIPASE 219 U/L (73-393)
[2022-03-07] MEDS ORDERED: Iopamidol 755 MG/ML 500 ML Multipack Bottle IVPUSH ONE (05:31)
[2022-03-07 11:52] VITALS: BP 106/49; PULSE 65
== END 2022-03-07 08:00 | disposition home or self-care (01) ==
LOC: MW.ED 03:19
DX: R06.02 Shortness of breath (principal); I10 Essential (primary) hypertension; Z88.5 Allergy status to narcotic agent; Z79.899 Other long term (current) drug therapy; Z86.16 Personal history of COVID-19
CPT/HCPCS: 36415; 71045; 71275; 80053; 80307; 82803; 83690; 83735; 84443; 84484; 85025; 85379; 87635; 93005; 96360; 99284; J7030; Q9967; 93010; 99285; U0002

== ENCOUNTER 2022-03-13 06:09 | Emergency (ER) | payer MEDICAID ==
[2022-03-13] MEDS ORDERED: HYDROmorphone 1 MG/ML Syringe IM ONE (06:26)
[2022-03-13] MEDS ORDERED: Ketorolac 30 MG/ML SDV IM ONE (07:43)
[2022-03-13 08:47] VITALS: BP 121/70; PULSE 67
== END 2022-03-13 09:04 | disposition home or self-care (01) ==
LOC: MW.ED 06:09
DX: S22.32XA Fracture of one rib, left side, initial encounter for closed fracture (principal); I10 Essential (primary) hypertension; F17.210 Nicotine dependence, cigarettes, uncomplicated; Z79.899 Other long term (current) drug therapy; Z88.5 Allergy status to narcotic agent; W18.09XA Striking against other object with subsequent fall, initial encounter
CPT/HCPCS: 70450; 71250; 72125; 96372; 99283; J1170; J1885

== ENCOUNTER 2022-10-07 02:03 | Emergency (ER) | payer MEDICAID ==
[2022-10-07 02:57] VITALS: BP 140/70; PULSE 82
== END 2022-10-07 02:55 | disposition home or self-care (01) ==
LOC: MW.ED 02:03
DX: T18.128A Food in esophagus causing other injury, initial encounter (principal); I10 Essential (primary) hypertension; Z88.5 Allergy status to narcotic agent; Z79.899 Other long term (current) drug therapy; Z86.16 Personal history of COVID-19
CPT/HCPCS: 71045; 71045-26; 99283

== ENCOUNTER 2023-03-15 00:20 | Emergency (ER) | payer SELFPAY ==
[2023-03-15] MEDS ORDERED: Acetaminophen 325 MG Tab PO ONE (05:42)
[2023-03-15] MEDS ORDERED: Bacitracin Oint 28.35 GM Tube TOP SCH (06:00)
[2023-03-15 07:28] VITALS: BP 134/82; PULSE 69
== END 2023-03-15 07:37 | disposition home or self-care (01) ==
LOC: MW.ED 00:20
DX: S50.11XA Contusion of right forearm, initial encounter (principal); T74.11XA Adult physical abuse, confirmed, initial encounter; F10.920 Alcohol use, unspecified with intoxication, uncomplicated; Z88.5 Allergy status to narcotic agent; Y04.8XXA Assault by other bodily force, initial encounter
CPT/HCPCS: 36415; 80307; 99284; A9270; 99285

== ENCOUNTER 2023-05-25 16:04 | Inpatient (IN) | payer SELFPAY ==
[2023-05-25 19:08] LABS: BASOPHILS ABSOLUTE AUTO 0.09 K/uL (0.00-0.20); BASOPHILS PERCENT AUTO 0.4 % (0.0-1.0); EOSINOPHILS ABSOLUTE AUTO 0.07 K/uL (0.00-0.45); EOSINOPHILS PERCENT AUTO 0.3 % (0.0-6.0); HEMATOCRIT 29.5 % (37.0-47.0); HEMOGLOBIN 10.2 g/dL (12.0-16.0); IMMATURE GRAN ABSOLUTE AUTO 0.16 K/uL (0.00-0.05); IMMATURE GRAN PERCENT AUTO 0.7 % (0.0-0.4); LYMPHOCYTES PERCENT AUTO 10.6 % (24.0-44.0); MEAN CORPUSCULAR HEMOGLOBIN 38.1 pg (28.0-32.0); MEAN CORPUSCULAR HGB CONC 34.6 g/dL (32.0-36.0); MEAN CORPUSCULAR VOLUME 110.1 fL (83.0-99.0); MEAN PLATELET VOLUME 10.3 fL (9.4-12.3); NEUTROPHILS ABSOLUTE AUTO 17.88 K/uL (1.80-7.70); PLATELET COUNT,PLT 158 K/uL (150-400); RED BLOOD CELL COUNT 2.68 M/uL (4.10-5.30)
[2023-05-25 19:19] LABS: INR 1.55 (0.86-1.11)
[2023-05-25 19:39] LABS: ALBUMIN 1.4 g/dL (3.4-5.0); CALCIUM 7.2 mg/dL (8.5-10.1); CARBON DIOXIDE,CO2 27.3 mmol/L (21.0-32.0); CREATININE 0.7 mg/dL (0.6-1.0); EST CRCL DRUG DOSING (CG) 61.39 mL/min; POTASSIUM,K 3.8 mmol/L (3.5-5.1); PROTEIN TOTAL,TP 7.1 g/dL (6.4-8.2)
[2023-05-25 19:42] LABS: A/G RATIO 0.3 (0.9-1.6)
[2023-05-25] MEDS ORDERED: Iopamidol 755 MG/ML 500 ML Multipack Bottle IVPUSH ONE (20:07)
[2023-05-26 01:37] LABS: BODY FLUID TYPE PER
[2023-05-26] MEDS ORDERED: cefTRIAXone 1 GM in Sodium Chloride 0.9% 50 ML IV ONE ×2 (02:03→12:45)
[2023-05-26 02:16] LABS: APPEARANCE,BODY FLUID CLEAR; COLOR,BODY FLUID YELLOW; RBC,BODY FLUID < 3000 /uL; WBC BODY FLUID 46 /uL
[2023-05-26] MEDS ORDERED: oxyCODONE 5 MG Tab PO PRN (04:52)
[2023-05-26] MEDS ORDERED: LORazepam 2 MG/ML SDV IVPUSH PRN (04:53)
[2023-05-26] MEDS ORDERED: Folic Acid 1 MG/0.2 ML UD Syringe IM SCH (05:00)
[2023-05-26] MEDS ORDERED: Thiamine 100 MG in Sodium Chloride 0.9% 100 ML IV SCH (05:00)
[2023-05-26] MEDS ORDERED: Folic Acid 1 MG/0.2 ML UD Syringe SUBCUT STA (05:40)
[2023-05-26 06:20] LABS: HEMATOCRIT 27.6 % (37.0-47.0); HEMOGLOBIN 9.4 g/dL (12.0-16.0); MEAN CORPUSCULAR HEMOGLOBIN 37.8 pg (28.0-32.0); MEAN CORPUSCULAR HGB CONC 34.1 g/dL (32.0-36.0); MEAN CORPUSCULAR VOLUME 110.8 fL (83.0-99.0); RED BLOOD CELL COUNT 2.49 M/uL (4.10-5.30); WHITE BLOOD CELL COUNT,WBC 17.23 K/uL (3.9-11.3)
[2023-05-26 06:49] LABS: CALCIUM 7.4 mg/dL (8.5-10.1); CARBON DIOXIDE,CO2 26.7 mmol/L (21.0-32.0); CREATININE 0.8 mg/dL (0.6-1.0); EST CRCL DRUG DOSING (CG) 53.71 mL/min; POTASSIUM,K 2.9 mmol/L (3.5-5.1)
[2023-05-26] MEDS: Thiamine 200 MG/2 ML MDV IVPUSH SCH (06:49)
[2023-05-26 06:55] LABS: PLATELET COUNT,PLT 153 K/uL (150-400)
[2023-05-26 06:56] LABS: BAND ABSOLUTE MAN 2.8; BAND PERCENT MAN 16 %; EOSINOPHILS ABSOLUTE MAN 0.2 (0.0-0.7); EOSINOPHILS PERCENT MAN 1 % (0.0-7.0); LYMPHOCYTES ABSOLUTE MAN 1.2 (0.6-2.4); LYMPHOCYTES PERCENT MAN 7 % (16.0-40.0); MONOCYTES PERCENT MAN 6 % (0.0-15.0); SEG NEUTROPHILS ABSOLUTE MAN 11.7 (1.4-5.7); SEG NEUTROPHILS PERCENT MAN 68 % (48.0-80.0)
[2023-05-26 06:57] LABS: METAMYELOCYTE ABSOLUTE MAN 0.3; METAMYELOCYTE PERCENT MAN 2 %
[2023-05-26] MEDS ORDERED: Potassium Chloride 20 MEQ in Premix Bag 1 BAG IV ONE (07:07)
[2023-05-26] MEDS ORDERED: Sodium Chloride 0.9% 500 ML IV ONE (07:20)
[2023-05-26] MEDS ORDERED: Potassium Chloride 20 MEQ Tab.ER PO ONE (07:20)
[2023-05-26] MEDS: Potassium Chloride 20 MEQ in Premix Bag 1 BAG IV SCH ×2 (07:53→10:22)
[2023-05-26] MEDS: Folic Acid 1 MG Tab PO SCH (08:01)
[2023-05-26] MEDS ORDERED: metroNIDAZOLE 250 MG Tab PO SCH (10:15)
[2023-05-26 10:23] LABS: MAGNESIUM 1.8 mg/dL (1.8-2.4); PHOSPHORUS 2.8 mg/dL (2.6-4.7)
[2023-05-26 10:26] LABS: A/G RATIO 0.3 (0.9-1.6); ALBUMIN 1.3 g/dL (3.4-5.0); BILIRUBIN TOTAL 7.9 mg/dL (0.2-1.0); CALCIUM 7.3 mg/dL (8.5-10.1); CARBON DIOXIDE,CO2 26.5 mmol/L (21.0-32.0); CREATININE 0.8 mg/dL (0.6-1.0); EST CRCL DRUG DOSING (CG) 53.71 mL/min; POTASSIUM,K 2.7 mmol/L (3.5-5.1); PROTEIN TOTAL,TP 6.4 g/dL (6.4-8.2)
[2023-05-26 10:37] LABS: GLUCOSE,URINE 100 mg/dL (NEGATIVE); KETONES,URINE 15 mg/dL (NEGATIVE); LEUKOCYTE ESTERASE,URINE NEGATIVE (NEGATIVE); NITRITE,URINE POSITIVE (NEGATIVE); OCCULT BLOOD,URINE NEGATIVE (NEGATIVE); PH,URINE 6.5 (5.0-8.0); PROTEIN,URINE 30 mg/dL (NEGATIVE); UROBILINOGEN,URINE >=8.0 EU/dL (<2.0)
[2023-05-26 10:42] LABS: APPEARANCE,URINE SLT CLOUDY; BILIRUBIN,URINE LARGE (NEGATIVE); COLOR,URINE BROWN
[2023-05-26 10:47] LABS: BACTERIA,URINE 3+ (NEGATIVE); MUCUS,URINE LIGHT (NONE-MOD); RBC,URINE 0-2 (0-2/HPF); SQUAMOUS EPITHELIAL CELLS,UR MANY; WBC,URINE 0-2 (0-5/HPF)
[2023-05-26] MEDS: Potassium Chloride 20 MEQ Tab.ER PO ONE ×2 (11:28→11:53)
[2023-05-26] MEDS: Enoxaparin 40 MG/0.4 ML Syringe SUBCUT SCH (11:32)
[2023-05-26] MEDS ORDERED: Potassium Chloride 10 MEQ Tab.ER PO ONE ×2 (11:45→15:45)
[2023-05-26 16:25] LABS: A/G RATIO 0.3 (0.9-1.6); ALBUMIN 1.4 g/dL (3.4-5.0); BILIRUBIN TOTAL 7.8 mg/dL (0.2-1.0); CALCIUM 7.8 mg/dL (8.5-10.1); CARBON DIOXIDE,CO2 28.3 mmol/L (21.0-32.0); CREATININE 0.8 mg/dL (0.6-1.0); EST CRCL DRUG DOSING (CG) 53.71 mL/min; POTASSIUM,K 3.8 mmol/L (3.5-5.1); PROTEIN TOTAL,TP 6.7 g/dL (6.4-8.2)
[2023-05-26] MEDS ORDERED: Ibuprofen 200 MG Tab PO PRN (19:36)
[2023-05-26] MEDS: Pantoprazole 40 MG Tab.CR PO SCH (20:14)
[2023-05-27] MEDS ORDERED: cefTRIAXone 2 GM in Sodium Chloride 0.9% 50 ML IV SCH (02:00)
[2023-05-27 06:20] LABS: HEMATOCRIT 27.6 % (37.0-47.0); HEMOGLOBIN 9.2 g/dL (12.0-16.0); MEAN CORPUSCULAR HEMOGLOBIN 37.7 pg (28.0-32.0); MEAN CORPUSCULAR HGB CONC 33.3 g/dL (32.0-36.0); MEAN CORPUSCULAR VOLUME 113.1 fL (83.0-99.0); PLATELET COUNT,PLT 124 K/uL (150-400); RED BLOOD CELL COUNT 2.44 M/uL (4.10-5.30); WHITE BLOOD CELL COUNT,WBC 14.58 K/uL (3.9-11.3)
[2023-05-27 07:02] LABS: A/G RATIO 0.3 (0.9-1.6); ALBUMIN 1.2 g/dL (3.4-5.0); BILIRUBIN TOTAL 6.6 mg/dL (0.2-1.0); CALCIUM 7.2 mg/dL (8.5-10.1); CARBON DIOXIDE,CO2 25.4 mmol/L (21.0-32.0); CREATININE 0.8 mg/dL (0.6-1.0); EST CRCL DRUG DOSING (CG) 53.71 mL/min; POTASSIUM,K 3.6 mmol/L (3.5-5.1)
[2023-05-27 09:39] LABS: BAND ABSOLUTE MAN 0.6; BAND PERCENT MAN 4 %; EOSINOPHILS ABSOLUTE MAN 0.3 (0.0-0.7); EOSINOPHILS PERCENT MAN 2 % (0.0-7.0); LYMPHOCYTES PERCENT MAN 7 % (16.0-40.0); MONOCYTES ABSOLUTE MAN 0.6 (0.0-0.8); MONOCYTES PERCENT MAN 4 % (0.0-15.0); SEG NEUTROPHILS ABSOLUTE MAN 12.1 (1.4-5.7); SEG NEUTROPHILS PERCENT MAN 83 % (48.0-80.0)
[2023-05-27] MEDS: Enoxaparin 40 MG/0.4 ML Syringe SUBCUT SCH (09:50)
[2023-05-27] MEDS: Folic Acid 1 MG Tab PO SCH (09:51)
[2023-05-27] MEDS: Thiamine 200 MG/2 ML MDV IVPUSH SCH (09:51)
[2023-05-27] MEDS: Pantoprazole 40 MG Tab.CR PO SCH (09:52)
[2023-05-27] MEDS ORDERED: Furosemide 40 MG Tab PO SCH (10:15)
[2023-05-27] MEDS ORDERED: Spironolactone 25 MG Tab PO ONE (10:30)
[2023-05-27] MEDS ORDERED: Potassium Chloride 10 MEQ Tab.ER PO ONE (10:30)
[2023-05-27 11:40] VITALS: BP 99/67; PULSE 93
== END 2023-05-27 14:00 | disposition home or self-care (01) | DRG 433 ==
LOC: MW.ED 16:04 → MW.MS 05-26 02:05
PROVIDERS: ADMIT Internal Medicine; ATTEND Internal Medicine
PROC: 0W9G3ZZ Drainage of Peritoneal Cavity, Percutaneous Approach (ICD-10-PCS; principal; 2023-05-26)
DX: K70.31 Alcoholic cirrhosis of liver with ascites (principal); N30.00 Acute cystitis without hematuria; F10.920 Alcohol use, unspecified with intoxication, uncomplicated; I10 Essential (primary) hypertension; F17.210 Nicotine dependence, cigarettes, uncomplicated; F32.9 Major depressive disorder, single episode, unspecified; E80.6 Other disorders of bilirubin metabolism; Z79.899 Other long term (current) drug therapy; Z88.5 Allergy status to narcotic agent; Z88.8 Allergy status to other drugs, medicaments and biological substances; Z86.16 Personal history of COVID-19; Z90.89 Acquired absence of other organs; Z98.890 Other specified postprocedural states
CPT/HCPCS: 36415; 71046; 71046-26; 74177; 74177-26; 74181; 74181-26; 76705; 76705-26; 80048; 80053; 81001; 83605; 83735; 84100; 85025; 85610; 85730; 87040; 87070; 87075; 87086; 87205; 89050; A9270-GY; J0696; J1650; J3411; J3480; J3490; J7040; Q9967

== ENCOUNTER 2023-06-09 13:11 | Inpatient (IN) | payer SELFPAY ==
[2023-06-09] MEDS ORDERED: Sodium Chloride 0.9% 2.5 ML Syringe FLUSH PRN (14:01)
[2023-06-09] MEDS ORDERED: Sodium Chloride 0.9% 10 ML Syringe FLUSH PRN (14:01)
[2023-06-09 15:01] LABS: BASOPHILS ABSOLUTE AUTO 0.09 K/uL (0.00-0.20); BASOPHILS PERCENT AUTO 0.4 % (0.0-1.0); EOSINOPHILS ABSOLUTE AUTO 0.13 K/uL (0.00-0.45); EOSINOPHILS PERCENT AUTO 0.6 % (0.0-6.0); HEMATOCRIT 35.1 % (37.0-47.0); IMMATURE GRAN ABSOLUTE AUTO 0.07 K/uL (0.00-0.05); IMMATURE GRAN PERCENT AUTO 0.3 % (0.0-0.4); LYMPHOCYTES ABSOLUTE AUTO 2.79 K/uL (1.00-4.80); MEAN CORPUSCULAR HEMOGLOBIN 37.2 pg (28.0-32.0); MEAN CORPUSCULAR HGB CONC 34.2 g/dL (32.0-36.0); MEAN CORPUSCULAR VOLUME 108.7 fL (83.0-99.0); MEAN PLATELET VOLUME 10.3 fL (9.4-12.3); MONOCYTES ABSOLUTE AUTO 1.22 K/uL (0.00-0.80); MONOCYTES PERCENT AUTO 5.2 % (0.0-8.0); NEUTROPHILS ABSOLUTE AUTO 19.02 K/uL (1.80-7.70); NEUTROPHILS PERCENT AUTO 81.5 % (41.0-71.0); PLATELET COUNT,PLT 168 K/uL (150-400); RED BLOOD CELL COUNT 3.23 M/uL (4.10-5.30); WHITE BLOOD CELL COUNT,WBC 23.32 K/uL (3.9-11.3)
[2023-06-09] MEDS ORDERED: Cefepime 2 GM in Sodium Chloride 0.9% 50 ML IV STA (15:14)
[2023-06-09 15:25] LABS: LACTIC ACID 3.9 mmol/L (0.4-2.0)
[2023-06-09 15:26] LABS: INR 1.4 (0.86-1.11); PTT,PARTIAL THROMBOPLSTIN TIME 34.2 SEC (23.9-30.7)
[2023-06-09] MEDS ORDERED: Sodium Chloride 0.9% 500 ML IV SCH (15:30)
[2023-06-09] MEDS ORDERED: Naloxone 0.4 MG/ML SDV IVPUSH PRN (15:34)
[2023-06-09] MEDS ORDERED: fentaNYL 50 MCG/ML SDV IVPUSH ONE ×2 (15:34→17:39)
[2023-06-09] MEDS ORDERED: Ondansetron 4 MG/2 ML SDV IVPUSH ONE (15:34)
[2023-06-09 15:35] LABS: CORONAVIRUS COVID-19 NAA NEGATIVE (NEGATIVE); INFLUENZA A NAA NEGATIVE (NEGATIVE); INFLUENZA B NAA NEGATIVE (NEGATIVE); RESPIRATORY SYNCYTIAL VIR NAA NEGATIVE (NEGATIVE)
[2023-06-09 15:50] LABS: A/G RATIO 0.2 (0.9-1.6); ALANINE AMINOTRANSFERASE,ALT 39 IU/L (14-63); ALBUMIN 1.5 g/dL (3.4-5.0); ALKALINE PHOSPHATASE 471 U/L (46-116); ASPARTATE AMNIOTRANSFERASE,AST 164 IU/L (15-37); BILIRUBIN TOTAL 6.7 mg/dL (0.2-1.0); BLOOD UREA NITROGEN,BUN 5 mg/dL (7.0-18.0); CHLORIDE,CL 98 mmol/L (98-107); CREATININE 0.7 mg/dL (0.6-1.0); EST CRCL DRUG DOSING (CG) 61.39 mL/min; GLUCOSE RANDOM 99 mg/dL (74-106); LIPASE 27 U/L (16-77); MAGNESIUM 1.6 mg/dL (1.8-2.4); POTASSIUM,K 3.2 mmol/L (3.5-5.1); PROTEIN TOTAL,TP 8.4 g/dL (6.4-8.2); SODIUM,NA 136 mmol/L (136-145)
[2023-06-09 15:56] LABS: ESTIMATED GFR 99 mL/min (>60); ETHANOL BLOOD MEDICAL < 3.0 mg/dL
[2023-06-09] MEDS ORDERED: Iopamidol 755 MG/ML 500 ML Multipack Bottle IVPUSH STA (16:18)
[2023-06-09] MEDS ORDERED: Lidocaine 1% with EPINEPHrine 1:100,000 20 ML MDV INJECT ONE (17:37)
[2023-06-09] MEDS ORDERED: Potassium Chloride 20 MEQ Tab.ER PO ONE (17:39)
[2023-06-09] MEDS ORDERED: Magnesium Sulfate/Water 2 GM/50 ML Premix Bag IV ONE (17:39)
[2023-06-09] MEDS ORDERED: Thiamine 200 MG/2 ML MDV IVPUSH SCH (17:45)
[2023-06-09 17:58] LABS: APPEARANCE,URINE CLEAR; BILIRUBIN,URINE SMALL (NEGATIVE); COLOR,URINE YELLOW; GLUCOSE,URINE NEGATIVE (NEGATIVE); KETONES,URINE NEGATIVE (NEGATIVE); LEUKOCYTE ESTERASE,URINE NEGATIVE (NEGATIVE); NITRITE,URINE NEGATIVE (NEGATIVE); OCCULT BLOOD,URINE NEGATIVE (NEGATIVE); PH,URINE 5.5 (5.0-8.0); PROTEIN,URINE NEGATIVE (NEGATIVE)
[2023-06-09] MEDS ORDERED: Magnesium Sulfate/Water 2 GM in Premix Bag 1 BAG IV ONE (18:00)
[2023-06-09 18:09] LABS: BODY FLUID TYPE PER
[2023-06-09 18:26] LABS: MONONUCLEAR, BODY FLUID 84.7 %; POLYMORPHONUCLEAR, BODY FLUID 15.3 %
[2023-06-09] MEDS ORDERED: Morphine 2 MG/ML SYRINGE IVPUSH PRN (18:26)
[2023-06-09 18:30] LABS: COLOR,BODY FLUID YELLOW; WBC BODY FLUID 137 /uL
[2023-06-09 18:31] LABS: APPEARANCE,BODY FLUID CLEAR
[2023-06-09 18:40] LABS: GLUCOSE,BODY FLUID 114 mg/dL; PROTEIN,BODY FLUID 1.1 g/dL
[2023-06-09] MEDS: Thiamine 200 MG/2 ML MDV IVPUSH SCH (20:50)
[2023-06-10] MEDS: Cefepime 2 GM in Sodium Chloride 0.9% 50 ML IV SCH ×2 (02:51→14:10)
[2023-06-10 06:21] LABS: BASOPHILS ABSOLUTE AUTO 0.11 K/uL (0.00-0.20); BASOPHILS PERCENT AUTO 0.6 % (0.0-1.0); EOSINOPHILS ABSOLUTE AUTO 0.27 K/uL (0.00-0.45); EOSINOPHILS PERCENT AUTO 1.4 % (0.0-6.0); HEMATOCRIT 31.4 % (37.0-47.0); HEMOGLOBIN 10.4 g/dL (12.0-16.0); IMMATURE GRAN ABSOLUTE AUTO 0.07 K/uL (0.00-0.05); IMMATURE GRAN PERCENT AUTO 0.4 % (0.0-0.4); LYMPHOCYTES ABSOLUTE AUTO 3.06 K/uL (1.00-4.80); MEAN CORPUSCULAR HEMOGLOBIN 36.1 pg (28.0-32.0); MEAN CORPUSCULAR HGB CONC 33.1 g/dL (32.0-36.0); MEAN PLATELET VOLUME 10.2 fL (9.4-12.3); MONOCYTES ABSOLUTE AUTO 0.92 K/uL (0.00-0.80); MONOCYTES PERCENT AUTO 4.8 % (0.0-8.0); NEUTROPHILS ABSOLUTE AUTO 14.71 K/uL (1.80-7.70); NEUTROPHILS PERCENT AUTO 76.8 % (41.0-71.0); PLATELET COUNT,PLT 141 K/uL (150-400); RED BLOOD CELL COUNT 2.88 M/uL (4.10-5.30); WHITE BLOOD CELL COUNT,WBC 19.14 K/uL (3.9-11.3)
[2023-06-10 06:48] LABS: A/G RATIO 0.2 (0.9-1.6); ALBUMIN 1.1 g/dL (3.4-5.0); BILIRUBIN TOTAL 5.8 mg/dL (0.2-1.0); CALCIUM 7.5 mg/dL (8.5-10.1); CARBON DIOXIDE,CO2 27.7 mmol/L (21.0-32.0); CREATININE 0.8 mg/dL (0.6-1.0); EST CRCL DRUG DOSING (CG) 53.71 mL/min; MAGNESIUM 2.1 mg/dL (1.8-2.4); POTASSIUM,K 2.9 mmol/L (3.5-5.1); PROTEIN TOTAL,TP 6.8 g/dL (6.4-8.2)
[2023-06-10] MEDS ORDERED: Potassium Chloride 20 MEQ Tab.ER PO ONE (08:15)
[2023-06-10] MEDS: Folic Acid 1 MG Tab PO SCH (08:22)
[2023-06-10] MEDS ORDERED: LORazepam 2 MG/ML SDV IVPUSH PRN (10:33)
[2023-06-10 11:24] LABS: INR 1.5 (0.86-1.11)
[2023-06-10] MEDS ORDERED: Cefepime 2 GM Vial IVPUSH ONE (13:00)
[2023-06-10 14:44] LABS: CALCIUM 7.5 mg/dL (8.5-10.1); CREATININE 0.8 mg/dL (0.6-1.0); EST CRCL DRUG DOSING (CG) 53.71 mL/min; POTASSIUM,K 3.7 mmol/L (3.5-5.1)
[2023-06-10] MEDS: Thiamine 200 MG/2 ML MDV IVPUSH SCH (20:53)
[2023-06-11] MEDS: Cefepime 2 GM in Sodium Chloride 0.9% 50 ML IV SCH ×2 (02:18→15:54)
[2023-06-11 06:23] LABS: BASOPHILS ABSOLUTE AUTO 0.09 K/uL (0.00-0.20); BASOPHILS PERCENT AUTO 0.4 % (0.0-1.0); EOSINOPHILS ABSOLUTE AUTO 0.27 K/uL (0.00-0.45); EOSINOPHILS PERCENT AUTO 1.3 % (0.0-6.0); HEMATOCRIT 31.8 % (37.0-47.0); HEMOGLOBIN 10.8 g/dL (12.0-16.0); IMMATURE GRAN ABSOLUTE AUTO 0.11 K/uL (0.00-0.05); IMMATURE GRAN PERCENT AUTO 0.5 % (0.0-0.4); LYMPHOCYTES ABSOLUTE AUTO 3.49 K/uL (1.00-4.80); MEAN CORPUSCULAR VOLUME 108.9 fL (83.0-99.0); MEAN PLATELET VOLUME 10.6 fL (9.4-12.3); MONOCYTES ABSOLUTE AUTO 0.99 K/uL (0.00-0.80); MONOCYTES PERCENT AUTO 4.8 % (0.0-8.0); PLATELET COUNT,PLT 124 K/uL (150-400); RED BLOOD CELL COUNT 2.92 M/uL (4.10-5.30); WHITE BLOOD CELL COUNT,WBC 20.55 K/uL (3.9-11.3)
[2023-06-11 06:52] LABS: A/G RATIO 0.2 (0.9-1.6); ALANINE AMINOTRANSFERASE,ALT 36 IU/L (14-63); ALBUMIN 1.2 g/dL (3.4-5.0); ALKALINE PHOSPHATASE 395 U/L (46-116); ASPARTATE AMNIOTRANSFERASE,AST 118 IU/L (15-37); BILIRUBIN TOTAL 5.1 mg/dL (0.2-1.0); BLOOD UREA NITROGEN,BUN 7 mg/dL (7.0-18.0); CALCIUM 7.6 mg/dL (8.5-10.1); CARBON DIOXIDE,CO2 28.2 mmol/L (21.0-32.0); CHLORIDE,CL 102 mmol/L (98-107); CREATININE 0.7 mg/dL (0.6-1.0); GLUCOSE RANDOM 90 mg/dL (74-106); MAGNESIUM 1.9 mg/dL (1.8-2.4); POTASSIUM,K 4.3 mmol/L (3.5-5.1); PROTEIN TOTAL,TP 6.8 g/dL (6.4-8.2); SODIUM,NA 134 mmol/L (136-145)
[2023-06-11 06:53] LABS: ESTIMATED GFR 99 mL/min (>60)
[2023-06-11] MEDS: Folic Acid 1 MG Tab PO SCH (08:50)
[2023-06-11] MEDS: Midodrine 5 MG Tab PO SCH ×3 (08:58→22:41)
[2023-06-11] MEDS: Thiamine 200 MG/2 ML MDV IVPUSH SCH (20:52)
[2023-06-12] MEDS: Cefepime 2 GM in Sodium Chloride 0.9% 50 ML IV SCH (02:53)
[2023-06-12 05:43] LABS: BASOPHILS ABSOLUTE AUTO 0.09 K/uL (0.00-0.20); BASOPHILS PERCENT AUTO 0.5 % (0.0-1.0); EOSINOPHILS ABSOLUTE AUTO 0.26 K/uL (0.00-0.45); EOSINOPHILS PERCENT AUTO 1.4 % (0.0-6.0); HEMATOCRIT 28.7 % (37.0-47.0); HEMOGLOBIN 9.7 g/dL (12.0-16.0); IMMATURE GRAN ABSOLUTE AUTO 0.08 K/uL (0.00-0.05); IMMATURE GRAN PERCENT AUTO 0.4 % (0.0-0.4); LYMPHOCYTES PERCENT AUTO 16.6 % (24.0-44.0); MEAN CORPUSCULAR HEMOGLOBIN 36.7 pg (28.0-32.0); MEAN CORPUSCULAR HGB CONC 33.8 g/dL (32.0-36.0); MEAN CORPUSCULAR VOLUME 108.7 fL (83.0-99.0); MEAN PLATELET VOLUME 10.2 fL (9.4-12.3); MONOCYTES ABSOLUTE AUTO 0.97 K/uL (0.00-0.80); MONOCYTES PERCENT AUTO 5.4 % (0.0-8.0); NEUTROPHILS ABSOLUTE AUTO 13.67 K/uL (1.80-7.70); NEUTROPHILS PERCENT AUTO 75.7 % (41.0-71.0); PLATELET COUNT,PLT 123 K/uL (150-400); RED BLOOD CELL COUNT 2.64 M/uL (4.10-5.30); WHITE BLOOD CELL COUNT,WBC 18.07 K/uL (3.9-11.3)
[2023-06-12 05:55] LABS: INR 1.43 (0.86-1.11)
[2023-06-12 06:07] LABS: A/G RATIO 0.2 (0.9-1.6); CALCIUM 7.6 mg/dL (8.5-10.1); CARBON DIOXIDE,CO2 25.3 mmol/L (21.0-32.0); CREATININE 0.9 mg/dL (0.6-1.0); EST CRCL DRUG DOSING (CG) 47.75 mL/min; MAGNESIUM 1.6 mg/dL (1.8-2.4); PHOSPHORUS 2.8 mg/dL (2.6-4.7); PROTEIN TOTAL,TP 6.4 g/dL (6.4-8.2)
[2023-06-12] MEDS ORDERED: Magnesium Sulfate/Water 2 GM in Premix Bag 1 BAG IV ONE (07:21)
[2023-06-12] MEDS: Folic Acid 1 MG Tab PO SCH (08:23)
[2023-06-12 09:02] LABS: HBSAG SCREEN Negative (Negative); HCV AB Non Reactive (Non Reactive); HEP A AB, IGM Negative (Negative); HEP B CORE AB, IGM Negative (Negative)
[2023-06-12 11:53] VITALS: BP 119/59; PULSE 88
[2023-06-12] MEDS ORDERED: VANCOmycin 1.5 GM/300 ML 1.5 GM in Premix Bag 1 BAG IV SCH (21:00)
[2023-06-15 13:11] LABS: RBC,BODY FLUID < 3000 /uL
== END 2023-06-12 12:10 | disposition home or self-care (01) | DRG 871 ==
LOC: MW.ED 13:11 → MW.MS 18:34
PROVIDERS: ADMIT Internal Medicine; ATTEND Internal Medicine
PROC: 3E03329 Introduction of Other Anti-infective into Peripheral Vein, Percutaneous Approach (ICD-10-PCS; principal; 2023-06-09)
PROC: 0W9G3ZZ Drainage of Peritoneal Cavity, Percutaneous Approach (ICD-10-PCS; 2023-06-09)
DX: A41.9 Sepsis, unspecified organism (principal); J18.9 Pneumonia, unspecified organism; K70.31 Alcoholic cirrhosis of liver with ascites; I10 Essential (primary) hypertension; F10.10 Alcohol abuse, uncomplicated; F17.210 Nicotine dependence, cigarettes, uncomplicated; F32.A Depression, unspecified; Z86.16 Personal history of COVID-19; Z79.899 Other long term (current) drug therapy; Z79.2 Long term (current) use of antibiotics; Z11.52 Encounter for screening for COVID-19; Z88.5 Allergy status to narcotic agent; Z90.89 Acquired absence of other organs; Z98.890 Other specified postprocedural states
CPT/HCPCS: 0241U; 36415; 71046; 71046-26; 74177; 74177-26; 80048; 80053; 80074; 80202; 80307; 81003; 82945; 82947; 83605; 83690; 83735; 84100; 84157; 84484; 85025; 85610; 85730; 86850; 86900; 86901; 87040; 87070; 87075; 87205; 89050; 93005; 96365; 96375; 96376; 99222; 99232; 99239; 99285-25; A9270-GY; J0692; J2405; J3010; J3370; J3411; J3430; J3475; J3490; J7040; J7050; Q9967

== ENCOUNTER 2023-06-20 10:40 | Emergency (ER) | payer SELFPAY ==
[2023-06-20 12:46] LABS: BODY FLUID TYPE PER
[2023-06-20 13:19] LABS: GLUCOSE,BODY FLUID 122 mg/dL; PROTEIN,BODY FLUID 0.8 g/dL
[2023-06-20 13:27] LABS: COLOR,BODY FLUID YELLOW
[2023-06-20 13:28] LABS: APPEARANCE,BODY FLUID CLOUDY
[2023-06-20 13:29] LABS: MONONUCLEAR, BODY FLUID 0.1 %; RBC,BODY FLUID < 3000 /uL; WBC BODY FLUID 91 /uL
[2023-06-20 13:51] VITALS: BP 108/66; PULSE 89
== END 2023-06-20 13:50 | disposition home or self-care (01) ==
LOC: MW.ED 10:40
DX: R18.8 Other ascites (principal); I10 Essential (primary) hypertension; Z86.16 Personal history of COVID-19; Z88.5 Allergy status to narcotic agent; Z79.899 Other long term (current) drug therapy
CPT/HCPCS: 49082; 82945; 84157; 89050; 99283; 99284-25

== ENCOUNTER 2024-01-19 19:02 | Emergency (ER) | payer MEDICAID ==
[2024-01-19] MEDS: Sodium Chloride 0.9% 1,000 ML IV ONE (19:18)
[2024-01-19 19:29] LABS: BASOPHILS ABSOLUTE AUTO 0.06 K/uL (0.00-0.20); EOSINOPHILS ABSOLUTE AUTO 0.09 K/uL (0.00-0.45); EOSINOPHILS PERCENT AUTO 1.4 % (0.0-6.0); HEMATOCRIT 39.5 % (37.0-47.0); HEMOGLOBIN 13.4 g/dL (12.0-16.0); IMMATURE GRAN ABSOLUTE AUTO 0.01 K/uL (0.00-0.05); IMMATURE GRAN PERCENT AUTO 0.2 % (0.0-0.4); LYMPHOCYTES ABSOLUTE AUTO 2.77 K/uL (1.00-4.80); LYMPHOCYTES PERCENT AUTO 44.3 % (24.0-44.0); MEAN CORPUSCULAR HEMOGLOBIN 31.9 pg (28.0-32.0); MEAN CORPUSCULAR HGB CONC 33.9 g/dL (32.0-36.0); MEAN PLATELET VOLUME 9.5 fL (9.4-12.3); MONOCYTES PERCENT AUTO 6.4 % (0.0-8.0); NEUTROPHILS ABSOLUTE AUTO 2.92 K/uL (1.80-7.70); NEUTROPHILS PERCENT AUTO 46.7 % (41.0-71.0); PLATELET COUNT,PLT 105 K/uL (150-400); WHITE BLOOD CELL COUNT,WBC 6.25 K/uL (3.9-11.3)
[2024-01-19 19:47] LABS: AMPHETAMINES SCREEN, URINE NEGATIVE (CUTOFF=500); BARBITURATE SCREEN,URINE NEGATIVE (CUTOFF=200); BENZODIAZEPINES SCREEN,URINE NEGATIVE (CUTOFF=150); BUPRENORPHINE SCREEN,URINE NEGATIVE (CUTOFF=10); METHADONE SCREEN, URINE NEGATIVE (CUTOFF=200); METHAMPHETAMINES SCREEN, URINE NEGATIVE (CUTOFF=500); OXYCODONE SCREEN,URINE NEGATIVE (CUT0FF=100); PCP SCREEN,URINE NEGATIVE (CUTOFF=25); THC SCREEN,URINE 20 NG/ML PRESUMPTIVE POSITIVE (CUTOFF=50)
[2024-01-19 19:48] LABS: APPEARANCE,URINE CLEAR; BILIRUBIN,URINE NEGATIVE (NEGATIVE); COLOR,URINE YELLOW; GLUCOSE,URINE NEGATIVE (NEGATIVE); KETONES,URINE NEGATIVE (NEGATIVE); LEUKOCYTE ESTERASE,URINE TRACE (NEGATIVE); NITRITE,URINE NEGATIVE (NEGATIVE); OCCULT BLOOD,URINE NEGATIVE (NEGATIVE); PROTEIN,URINE NEGATIVE (NEGATIVE)
[2024-01-19 19:51] LABS: BACTERIA,URINE 2+ (NEGATIVE); EPITHELIAL CELLS,URINE FEW (NONE-FEW); RBC,URINE 0-1 (0-2/HPF)
[2024-01-19 19:52] LABS: INR 1.12 (0.86-1.11); PTT,PARTIAL THROMBOPLSTIN TIME 32.4 SEC (23.9-30.7)
[2024-01-19 19:54] LABS: A/G RATIO 0.8 (0.9-1.6); ALBUMIN 3.5 g/dL (3.4-5.0); BILIRUBIN TOTAL 0.9 mg/dL (0.2-1.0); CALCIUM 7.8 mg/dL (8.5-10.1); CARBON DIOXIDE,CO2 24.3 mmol/L (21.0-32.0); CREATININE 0.5 mg/dL (0.6-1.0); EST CRCL DRUG DOSING (CG) 97.74 mL/min; MAGNESIUM 2.1 mg/dL (1.8-2.4); POTASSIUM,K 3.3 mmol/L (3.5-5.1); PROTEIN TOTAL,TP 8.1 g/dL (6.4-8.2)
[2024-01-19 21:08] LABS: ACETAMINOPHEN <2.0 ug/mL; TSH ULTRASENSITIVE 0.98 uIU/mL (0.36-3.74)
[2024-01-19 21:09] LABS: SALICYLATE < 0.2 mg/dL (0.0-20.0)
[2024-01-19 21:18] VITALS: PULSE 56
[2024-01-19 23:48] VITALS: BP 126/59
== END 2024-01-19 23:47 | disposition home or self-care (01) ==
LOC: MW.ED 19:02
DX: F10.129 Alcohol abuse with intoxication, unspecified (principal); Z79.899 Other long term (current) drug therapy; Z88.5 Allergy status to narcotic agent; Z88.6 Allergy status to analgesic agent; Z75.8 Other problems related to medical facilities and other health care; Y90.8 Blood alcohol level of 240 mg/100 ml or more
CPT/HCPCS: 36415; 80053; 80143; 80179; 80305; 80307; 81001; 83690; 83735; 84443; 84484; 85025; 85610; 85730; 93005; 96360; 99285; J7030; 93010; 99282

== ENCOUNTER 2024-02-14 09:24 | Emergency (ER) | payer MEDICAID ==
[2024-02-14] MEDS: Sodium Chloride 0.9% 10 ML Syringe FLUSH PRN (09:52)
[2024-02-14] MEDS: Sodium Chloride 0.9% 2.5 ML Syringe FLUSH PRN (09:52)
[2024-02-14 10:01] LABS: BASOPHILS ABSOLUTE AUTO 0.06 K/uL (0.00-0.20); BASOPHILS PERCENT AUTO 0.8 % (0.0-1.0); EOSINOPHILS ABSOLUTE AUTO 0.08 K/uL (0.00-0.45); EOSINOPHILS PERCENT AUTO 1.1 % (0.0-6.0); HEMATOCRIT 36.1 % (37.0-47.0); HEMOGLOBIN 12.2 g/dL (12.0-16.0); IMMATURE GRAN ABSOLUTE AUTO 0.03 K/uL (0.00-0.05); IMMATURE GRAN PERCENT AUTO 0.4 % (0.0-0.4); LYMPHOCYTES ABSOLUTE AUTO 1.42 K/uL (1.00-4.80); MEAN CORPUSCULAR HEMOGLOBIN 31.9 pg (28.0-32.0); MEAN CORPUSCULAR HGB CONC 33.8 g/dL (32.0-36.0); MEAN CORPUSCULAR VOLUME 94.3 fL (83.0-99.0); MEAN PLATELET VOLUME 10.3 fL (9.4-12.3); MONOCYTES ABSOLUTE AUTO 0.65 K/uL (0.00-0.80); MONOCYTES PERCENT AUTO 8.7 % (0.0-8.0); NEUTROPHILS ABSOLUTE AUTO 5.23 K/uL (1.80-7.70); PLATELET COUNT,PLT 67 K/uL (150-400); RED BLOOD CELL COUNT 3.83 M/uL (4.10-5.30); WHITE BLOOD CELL COUNT,WBC 7.47 K/uL (3.9-11.3)
[2024-02-14 10:08] LABS: INR 1.25 (0.86-1.11)
[2024-02-14 10:27] LABS: CORONAVIRUS COVID-19 NAA NEGATIVE (NEGATIVE); INFLUENZA A NAA NEGATIVE (NEGATIVE); INFLUENZA B NAA NEGATIVE (NEGATIVE); RESPIRATORY SYNCYTIAL VIR NAA NEGATIVE (NEGATIVE)
[2024-02-14 10:29] LABS: A/G RATIO 0.9 (0.9-1.6); ALBUMIN 3.8 g/dL (3.4-5.0); BILIRUBIN DIRECT 0.9 mg/dL (0.0-0.5); BILIRUBIN TOTAL 1.9 mg/dL (0.2-1.0); CALCIUM 8.5 mg/dL (8.5-10.1); CARBON DIOXIDE,CO2 23.6 mmol/L (21.0-32.0); CREATININE 0.6 mg/dL (0.6-1.0); EST CRCL DRUG DOSING (CG) 77.88 mL/min; POTASSIUM,K 3.1 mmol/L (3.5-5.1); PROTEIN TOTAL,TP 8.1 g/dL (6.4-8.2)
[2024-02-14] MEDS: Iopamidol 755 MG/ML 500 ML Multipack Bottle IVPUSH STA (11:16)
[2024-02-14 12:07] VITALS: BP 140/79; PULSE 85
== END 2024-02-14 12:04 ==
LOC: MW.ED 09:24
DX: K70.30 Alcoholic cirrhosis of liver without ascites (principal); D69.6 Thrombocytopenia, unspecified; F10.220 Alcohol dependence with intoxication, uncomplicated; Z88.5 Allergy status to narcotic agent; Z79.899 Other long term (current) drug therapy; Y90.9 Presence of alcohol in blood, level not specified
CPT/HCPCS: 0241U; 36415; 71045; 74177; 80048; 80076; 80307; 83690; 83880; 84484; 85025; 85610; 85730; 93005; 99284; J3490; Q9967

== ENCOUNTER 2024-02-14 13:36 | Emergency (ER) | payer MEDICAID ==
[2024-02-14 14:52] VITALS: BP 114/60; PULSE 62
== END 2024-02-14 14:51 | disposition home or self-care (01) ==
LOC: MW.ED 13:36
DX: Z02.89 Encounter for other administrative examinations (principal); Z88.5 Allergy status to narcotic agent; Z79.899 Other long term (current) drug therapy; Z75.8 Other problems related to medical facilities and other health care
CPT/HCPCS: 74018; 74018-26; 99283

== ENCOUNTER 2024-05-24 16:14 | Emergency (ER) | payer MEDICAID ==
[2024-05-24 16:19] VITALS: BP 137/80; PULSE 102
[2024-05-24] MEDS: Pantoprazole 80 MG in Sodium Chloride 0.9% 10 ML IVPUSH STA (17:09)
[2024-05-24] MEDS: Ondansetron 4 MG/2 ML SDV IVPUSH STA (17:09)
[2024-05-24] MEDS: Ketorolac 30 MG/ML SDV IVPUSH STA (17:09)
[2024-05-24 17:12] LABS: BASOPHILS ABSOLUTE AUTO 0.06 K/uL (0.00-0.20); BASOPHILS PERCENT AUTO 0.9 % (0.0-1.0); EOSINOPHILS ABSOLUTE AUTO 0.05 K/uL (0.00-0.45); EOSINOPHILS PERCENT AUTO 0.7 % (0.0-6.0); HEMATOCRIT 33.6 % (37.0-47.0); HEMOGLOBIN 11.3 g/dL (12.0-16.0); IMMATURE GRAN ABSOLUTE AUTO 0.04 K/uL (0.00-0.05); IMMATURE GRAN PERCENT AUTO 0.6 % (0.0-0.4); LYMPHOCYTES ABSOLUTE AUTO 1.33 K/uL (1.00-4.80); LYMPHOCYTES PERCENT AUTO 18.9 % (24.0-44.0); MEAN CORPUSCULAR HEMOGLOBIN 33.6 pg (28.0-32.0); MEAN CORPUSCULAR HGB CONC 33.6 g/dL (32.0-36.0); MEAN PLATELET VOLUME 10.2 fL (9.4-12.3); MONOCYTES ABSOLUTE AUTO 0.38 K/uL (0.00-0.80); MONOCYTES PERCENT AUTO 5.4 % (0.0-8.0); NEUTROPHILS ABSOLUTE AUTO 5.18 K/uL (1.80-7.70); NEUTROPHILS PERCENT AUTO 73.5 % (41.0-71.0); PLATELET COUNT,PLT 43 K/uL (150-400); RED BLOOD CELL COUNT 3.36 M/uL (4.10-5.30); WHITE BLOOD CELL COUNT,WBC 7.04 K/uL (3.9-11.3)
[2024-05-24 17:47] LABS: ALBUMIN 3.3 g/dL (3.4-5.0); BILIRUBIN TOTAL 2.9 mg/dL (0.2-1.0); CALCIUM 7.9 mg/dL (8.5-10.1); CARBON DIOXIDE,CO2 24.8 mmol/L (21.0-32.0); CREATININE 0.6 mg/dL (0.6-1.0); EST CRCL DRUG DOSING (CG) 71.92 mL/min; MAGNESIUM 1.5 mg/dL (1.8-2.4); POTASSIUM,K 3.1 mmol/L (3.5-5.1); PROTEIN TOTAL,TP 8.4 g/dL (6.4-8.2)
[2024-05-24 17:49] LABS: A/G RATIO 0.7 (0.9-1.6)
[2024-05-24] MEDS: Morphine 4 MG/ML Syringe IVPUSH STA (18:34)
[2024-05-24] MEDS: Iopamidol 755 MG/ML 500 ML Multipack Bottle IVPUSH STA (19:06)
[2024-05-24] MEDS: Magnesium Oxide 400 MG Tab PO STA (20:46)
== END 2024-05-24 20:50 | disposition home or self-care (01) ==
LOC: MW.ED 16:14
DX: R10.12 Left upper quadrant pain (principal); K05.10 Chronic gingivitis, plaque induced; E83.42 Hypomagnesemia; F10.120 Alcohol abuse with intoxication, uncomplicated; D69.6 Thrombocytopenia, unspecified; F17.210 Nicotine dependence, cigarettes, uncomplicated; Z86.16 Personal history of COVID-19; Z88.5 Allergy status to narcotic agent; Z75.8 Other problems related to medical facilities and other health care
CPT/HCPCS: 36415; 74177; 80053; 80307; 83690; 83735; 84484; 85025; 93005; 96374; 96375; 99284; A9270; J1885; J2270; J2405; J2470; J3490; Q9967; 93010

== ENCOUNTER 2024-06-18 22:58 | Emergency (ER) | payer MEDICAID ==
[2024-06-19 00:44] VITALS: BP 103/77; PULSE 78
== END 2024-06-19 00:29 | disposition home or self-care (01) ==
LOC: MW.ED 22:58
DX: K06.8 Other specified disorders of gingiva and edentulous alveolar ridge (principal)
CPT/HCPCS: 99284

== ENCOUNTER 2024-07-20 04:29 | Emergency (ER) | payer MEDICAID ==
[2024-07-20] MEDS: Alum Hydrox/Mag Hydrox/Simeth 15 ML, Lidocaine 2% 5 ML PO ONE (05:27)
[2024-07-20] MEDS: Pantoprazole 40 MG in Sodium Chloride 0.9% 10 ML IVPUSH ONE (05:28)
[2024-07-20] MEDS: Sodium Chloride 0.9% 10 ML Syringe FLUSH PRN (05:28)
[2024-07-20] MEDS: Sodium Chloride 0.9% 2.5 ML Syringe FLUSH PRN (05:28)
[2024-07-20 05:29] LABS: BASOPHILS ABSOLUTE AUTO 0.06 K/uL (0.00-0.20); BASOPHILS PERCENT AUTO 0.6 % (0.0-1.0); EOSINOPHILS ABSOLUTE AUTO 0.03 K/uL (0.00-0.45); EOSINOPHILS PERCENT AUTO 0.3 % (0.0-6.0); HEMATOCRIT 31.6 % (37.0-47.0); HEMOGLOBIN 10.7 g/dL (12.0-16.0); IMMATURE GRAN ABSOLUTE AUTO 0.05 K/uL (0.00-0.05); IMMATURE GRAN PERCENT AUTO 0.5 % (0.0-0.4); LYMPHOCYTES ABSOLUTE AUTO 1.11 K/uL (1.00-4.80); LYMPHOCYTES PERCENT AUTO 10.8 % (24.0-44.0); MEAN CORPUSCULAR HEMOGLOBIN 31.8 pg (28.0-32.0); MEAN CORPUSCULAR HGB CONC 33.9 g/dL (32.0-36.0); MEAN CORPUSCULAR VOLUME 93.8 fL (83.0-99.0); MEAN PLATELET VOLUME 10.5 fL (9.4-12.3); MONOCYTES ABSOLUTE AUTO 0.56 K/uL (0.00-0.80); MONOCYTES PERCENT AUTO 5.5 % (0.0-8.0); NEUTROPHILS ABSOLUTE AUTO 8.44 K/uL (1.80-7.70); NEUTROPHILS PERCENT AUTO 82.3 % (41.0-71.0); PLATELET COUNT,PLT 62 K/uL (150-400); RED BLOOD CELL COUNT 3.37 M/uL (4.10-5.30); WHITE BLOOD CELL COUNT,WBC 10.25 K/uL (3.9-11.3)
[2024-07-20 05:40] LABS: INR 1.28 (0.86-1.11)
[2024-07-20 06:10] LABS: A/G RATIO 0.7 (0.9-1.6); ALBUMIN 3.5 g/dL (3.4-5.0); BILIRUBIN TOTAL 3.1 mg/dL (0.2-1.0); CALCIUM 8.1 mg/dL (8.5-10.1); CARBON DIOXIDE,CO2 24.9 mmol/L (21.0-32.0); CREATININE 0.7 mg/dL (0.6-1.0); EST CRCL DRUG DOSING (CG) 63.69 mL/min; POTASSIUM,K 2.9 mmol/L (3.5-5.1); PROTEIN TOTAL,TP 8.4 g/dL (6.4-8.2)
[2024-07-20] MEDS: Potassium Chloride 10% 20 MEQ/15 ML Soln 15 ML UD Cup PO ONE (06:28)
[2024-07-20 07:13] VITALS: BP 118/66; PULSE 98
== END 2024-07-20 07:13 | disposition home or self-care (01) ==
LOC: MW.ED 04:29
DX: K92.2 Gastrointestinal hemorrhage, unspecified (principal); F10.20 Alcohol dependence, uncomplicated; Z90.89 Acquired absence of other organs; Z88.5 Allergy status to narcotic agent; Z88.8 Allergy status to other drugs, medicaments and biological substances; Z79.899 Other long term (current) drug therapy; Z75.8 Other problems related to medical facilities and other health care
CPT/HCPCS: 36415; 80053; 83690; 85025; 85610; 96374; 99285; A9270; J2470; J3490

== ENCOUNTER 2025-01-17 12:29 | Emergency (ER) | payer MEDICAID ==
[2025-01-17 14:07] LABS: BASOPHILS ABSOLUTE AUTO 0.05 K/uL (0.00-0.20); EOSINOPHILS ABSOLUTE AUTO 0.09 K/uL (0.00-0.45); EOSINOPHILS PERCENT AUTO 1.8 % (0.0-6.0); HEMATOCRIT 27.1 % (37.0-47.0); HEMOGLOBIN 8.4 g/dL (12.0-16.0); IMMATURE GRAN ABSOLUTE AUTO 0.01 K/uL (0.00-0.05); IMMATURE GRAN PERCENT AUTO 0.2 % (0.0-0.4); LYMPHOCYTES ABSOLUTE AUTO 1.74 K/uL (1.00-4.80); LYMPHOCYTES PERCENT AUTO 35.4 % (24.0-44.0); MEAN CORPUSCULAR HEMOGLOBIN 25.6 pg (28.0-32.0); MEAN CORPUSCULAR VOLUME 82.6 fL (83.0-99.0); MEAN PLATELET VOLUME 10.2 fL (9.4-12.3); MONOCYTES ABSOLUTE AUTO 0.28 K/uL (0.00-0.80); MONOCYTES PERCENT AUTO 5.7 % (0.0-8.0); NEUTROPHILS ABSOLUTE AUTO 2.75 K/uL (1.80-7.70); NEUTROPHILS PERCENT AUTO 55.9 % (41.0-71.0); PLATELET COUNT,PLT 68 K/uL (150-400); RED BLOOD CELL COUNT 3.28 M/uL (4.10-5.30); WHITE BLOOD CELL COUNT,WBC 4.92 K/uL (3.9-11.3)
[2025-01-17] MEDS: Thiamine 100 MG Tab PO ONE (14:38)
[2025-01-17] MEDS: Folic Acid 1 MG Tab PO ONE (14:38)
[2025-01-17 14:42] LABS: A/G RATIO 0.8 (0.9-1.6); ALBUMIN 3.6 g/dL (3.4-5.0); BILIRUBIN TOTAL 1.5 mg/dL (0.2-1.0); CALCIUM 7.7 mg/dL (8.5-10.1); CARBON DIOXIDE,CO2 26.6 mmol/L (21.0-32.0); CREATININE 0.6 mg/dL (0.6-1.0); EST CRCL DRUG DOSING (CG) 73.36 mL/min; POTASSIUM,K 3.2 mmol/L (3.5-5.1); PROTEIN TOTAL,TP 7.9 g/dL (6.4-8.2)
[2025-01-17] MEDS ORDERED: Sodium Chloride 0.9% 20 ML SDV IV PRN (15:09)
[2025-01-17] MEDS ORDERED: Sodium Chloride 0.9% 10 ML Syringe FLUSH PRN (15:09)
[2025-01-17] MEDS ORDERED: Sodium Chloride 0.9% 2.5 ML Syringe FLUSH PRN (15:09)
[2025-01-17] MEDS: Sodium Chloride 0.9% 1,000 ML IV STA (15:27)
[2025-01-17] MEDS: Magnesium Sulfate 2 GM/50 mL 2 GM in Premix Bag 1 BAG IV ONE (15:27)
[2025-01-17] MEDS: Calcium Carbonate 500 MG Tab.Chew PO ONE (15:27)
[2025-01-17] MEDS: Potassium Chloride 20 MEQ Tab.ER PO ONE (15:28)
[2025-01-17 15:31] LABS: COLOR,URINE YELLOW; GLUCOSE,URINE NEGATIVE (NEGATIVE); KETONES,URINE TRACE mg/dL (NEGATIVE); LEUKOCYTE ESTERASE,URINE SMALL (NEGATIVE); NITRITE,URINE POSITIVE (NEGATIVE); OCCULT BLOOD,URINE NEGATIVE (NEGATIVE); PROTEIN,URINE 30 mg/dL (NEGATIVE)
[2025-01-17 15:32] LABS: APPEARANCE,URINE CLOUDY; BILIRUBIN,URINE SMALL (NEGATIVE)
[2025-01-17 15:42] LABS: BACTERIA,URINE 4+ (NEGATIVE); MUCUS,URINE LIGHT (NONE-MOD); RBC,URINE 0-2 (0-2/HPF); SQUAMOUS EPITHELIAL CELLS,UR MODERATE
[2025-01-17 15:47] LABS: AMPHETAMINES SCREEN, URINE NEGATIVE (CUTOFF=500); BARBITURATE SCREEN,URINE NEGATIVE (CUTOFF=200); BENZODIAZEPINES SCREEN,URINE NEGATIVE (CUTOFF=150); BUPRENORPHINE SCREEN,URINE NEGATIVE (CUTOFF=10); METHADONE SCREEN, URINE NEGATIVE (CUTOFF=200); METHAMPHETAMINES SCREEN, URINE PRESUMPTIVE POSITIVE (CUTOFF=500); OXYCODONE SCREEN,URINE NEGATIVE (CUT0FF=100); PCP SCREEN,URINE NEGATIVE (CUTOFF=25); THC SCREEN,URINE 20 NG/ML PRESUMPTIVE POSITIVE (CUTOFF=50)
[2025-01-17 17:00] VITALS: BP 135/77; PULSE 70
== END 2025-01-17 19:01 | disposition home or self-care (01) ==
LOC: MW.ED 12:29
DX: K70.30 Alcoholic cirrhosis of liver without ascites (principal); F10.920 Alcohol use, unspecified with intoxication, uncomplicated; R10.84 Generalized abdominal pain; M54.9 Dorsalgia, unspecified; E86.0 Dehydration; Z88.5 Allergy status to narcotic agent; Z79.899 Other long term (current) drug therapy; Y90.8 Blood alcohol level of 240 mg/100 ml or more
CPT/HCPCS: 36415; 74176; 80053; 80305; 80307; 81001; 82140; 83690; 83735; 85025; 96365; 96366; 99284; A9270; J3475; J7030; 99283

== ENCOUNTER 2025-01-30 17:25 | Emergency (ER) | payer MEDICAID ==
[2025-01-30] MEDS: Sodium Chloride 0.9% 1,000 ML IV ONE (17:33)
[2025-01-30 17:46] LABS: BASOPHILS ABSOLUTE AUTO 0.05 K/uL (0.00-0.20); BASOPHILS PERCENT AUTO 1.2 % (0.0-1.0); EOSINOPHILS ABSOLUTE AUTO 0.07 K/uL (0.00-0.45); EOSINOPHILS PERCENT AUTO 1.7 % (0.0-6.0); HEMATOCRIT 27.4 % (37.0-47.0); HEMOGLOBIN 8.6 g/dL (12.0-16.0); IMMATURE GRAN ABSOLUTE AUTO 0.02 K/uL (0.00-0.05); IMMATURE GRAN PERCENT AUTO 0.5 % (0.0-0.4); MEAN CORPUSCULAR HEMOGLOBIN 25.5 pg (28.0-32.0); MEAN CORPUSCULAR HGB CONC 31.4 g/dL (32.0-36.0); MEAN CORPUSCULAR VOLUME 81.3 fL (83.0-99.0); MEAN PLATELET VOLUME 10.6 fL (9.4-12.3); MONOCYTES ABSOLUTE AUTO 0.28 K/uL (0.00-0.80); MONOCYTES PERCENT AUTO 6.7 % (0.0-8.0); NEUTROPHILS ABSOLUTE AUTO 2.47 K/uL (1.80-7.70); NEUTROPHILS PERCENT AUTO 58.9 % (41.0-71.0); PLATELET COUNT,PLT 65 K/uL (150-400); RED BLOOD CELL COUNT 3.37 M/uL (4.10-5.30); WHITE BLOOD CELL COUNT,WBC 4.19 K/uL (3.9-11.3)
[2025-01-30 18:07] LABS: A/G RATIO 0.8 (0.9-1.6); ALBUMIN 3.4 g/dL (3.4-5.0); CALCIUM 8.1 mg/dL (8.5-10.1); CARBON DIOXIDE,CO2 24.6 mmol/L (21.0-32.0); CREATININE 0.6 mg/dL (0.6-1.0); EST CRCL DRUG DOSING (CG) 73.36 mL/min; MAGNESIUM 1.6 mg/dL (1.8-2.4); POTASSIUM,K 2.9 mmol/L (3.5-5.1); PROTEIN TOTAL,TP 7.6 g/dL (6.4-8.2)
[2025-01-30 18:11] LABS: LACTIC ACID 2.3 mmol/L (0.4-2.0)
[2025-01-30] MEDS: Potassium Chloride 20 MEQ Tab.ER PO ONE (18:29)
[2025-01-30] MEDS: Magnesium Sulfate 2 GM/50 mL 2 GM in Premix Bag 1 BAG IV ONE (18:29)
[2025-01-30 19:21] VITALS: BP 150/49; PULSE 76
== END 2025-01-30 19:20 | disposition left against medical advice (07) ==
LOC: MW.ED 17:25
DX: F10.120 Alcohol abuse with intoxication, uncomplicated (principal); Z53.20 Procedure and treatment not carried out because of patient's decision for unspecified reasons; Z88.5 Allergy status to narcotic agent; Z88.8 Allergy status to other drugs, medicaments and biological substances; Z75.3 Unavailability and inaccessibility of health-care facilities; Y90.9 Presence of alcohol in blood, level not specified
CPT/HCPCS: 36415; 80053; 80307; 82550; 83605; 83690; 83735; 85025; 93005; 96361; 96365; 99284; A9270; J3475; J7030; 93010

== ENCOUNTER 2025-05-21 18:18 | Emergency (ER) | payer MEDICAID ==
[2025-05-21] MEDS: Ketorolac 30 MG/ML SDV IVPUSH ONE (20:12)
[2025-05-21 20:21] LABS: BASOPHILS ABSOLUTE AUTO 0.07 K/uL (0.00-0.20); BASOPHILS PERCENT AUTO 0.8 % (0.0-1.0); EOSINOPHILS ABSOLUTE AUTO 0.27 K/uL (0.00-0.45); EOSINOPHILS PERCENT AUTO 3.2 % (0.0-6.0); IMMATURE GRAN ABSOLUTE AUTO 0.02 K/uL (0.00-0.05); IMMATURE GRAN PERCENT AUTO 0.2 % (0.0-0.4); LYMPHOCYTES ABSOLUTE AUTO 1.80 K/uL (1.00-4.80); LYMPHOCYTES PERCENT AUTO 21.6 % (24.0-44.0); MEAN PLATELET VOLUME 10.1 fL (9.4-12.3); MONOCYTES ABSOLUTE AUTO 0.71 K/uL (0.00-0.80); MONOCYTES PERCENT AUTO 8.5 % (0.0-8.0); NEUTROPHILS ABSOLUTE AUTO 5.45 K/uL (1.80-7.70); NEUTROPHILS PERCENT AUTO 65.7 % (41.0-71.0); NRBC ABSOLUTE 0.00 K/uL (0.00-0.02); NRBC PERCENT 0.0 /100WBC (0.0-0.2); PLATELET COUNT,PLT 100 K/uL (150-400); RED BLOOD CELL COUNT 3.52 M/uL (4.10-5.30); WHITE BLOOD CELL COUNT,WBC 8.32 K/uL (3.9-11.3)
[2025-05-21] MEDS ORDERED: PHENobarbital Sodium 130 MG/ML SDV ONE (20:22)
[2025-05-21 20:35] LABS: INR 1.25 (0.86-1.11)
[2025-05-21] MEDS: PHENobarbitaL sodium 260 MG in Sodium Chloride 0.9% 100 ML IV ONE (20:44)
[2025-05-21 20:49] LABS: A/G RATIO 0.7 (0.9-1.6); ALANINE AMINOTRANSFERASE,ALT 31 IU/L (14-63); ASPARTATE AMNIOTRANSFERASE,AST 70 IU/L (15-37); BILIRUBIN TOTAL 1.7 mg/dL (0.2-1.0); BLOOD UREA NITROGEN,BUN 6 mg/dL (7.0-18.0); CARBON DIOXIDE,CO2 24.4 mmol/L (21.0-32.0); CHLORIDE,CL 107 mmol/L (98-107); CREATININE 0.5 mg/dL (0.6-1.0); GLUCOSE RANDOM 113 mg/dL (74-106); POTASSIUM,K 3.2 mmol/L (3.5-5.1); PROTEIN TOTAL,TP 7.8 g/dL (6.4-8.2); SODIUM,NA 142 mmol/L (136-145)
[2025-05-21 20:50] LABS: ESTIMATED GFR 106 mL/min (>60)
[2025-05-21] MEDS: Potassium Chloride 20 MEQ Tab.ER PO ONE (21:28)
[2025-05-21 21:36] VITALS: BP 149/68; PULSE 89
== END 2025-05-21 21:47 | disposition home or self-care (01) ==
LOC: MW.ED 18:18
DX: R10.9 Unspecified abdominal pain (principal); R11.0 Nausea; F17.200 Nicotine dependence, unspecified, uncomplicated; Z88.5 Allergy status to narcotic agent
CPT/HCPCS: 36415; 80053; 83605; 83690; 85025; 85610; 96365; 96375; 99284; A9270; J1885; J2560; J3360; J7030; 99283

== ENCOUNTER 2025-05-23 14:37 | Emergency (ER) | payer MEDICAID ==
[2025-05-23 15:13] LABS: APPEARANCE,URINE CLOUDY; GLUCOSE,URINE NEGATIVE (NEGATIVE); OCCULT BLOOD,URINE NEGATIVE (NEGATIVE)
[2025-05-23 15:19] LABS: SQUAMOUS EPITHELIAL CELLS,UR FEW
[2025-05-23] MEDS ORDERED: Sodium Chloride 0.9% 2.5 ML Syringe FLUSH PRN (16:15)
[2025-05-23] MEDS ORDERED: Sodium Chloride 0.9% 10 ML Syringe FLUSH PRN (16:15)
[2025-05-23 16:39] LABS: BASOPHILS ABSOLUTE AUTO 0.05 K/uL (0.00-0.20); BASOPHILS PERCENT AUTO 0.5 % (0.0-1.0); EOSINOPHILS ABSOLUTE AUTO 0.28 K/uL (0.00-0.45); EOSINOPHILS PERCENT AUTO 3.0 % (0.0-6.0); IMMATURE GRAN ABSOLUTE AUTO 0.02 K/uL (0.00-0.05); IMMATURE GRAN PERCENT AUTO 0.2 % (0.0-0.4); LYMPHOCYTES ABSOLUTE AUTO 1.27 K/uL (1.00-4.80); LYMPHOCYTES PERCENT AUTO 13.7 % (24.0-44.0); MEAN PLATELET VOLUME 10.4 fL (9.4-12.3); MONOCYTES ABSOLUTE AUTO 0.63 K/uL (0.00-0.80); MONOCYTES PERCENT AUTO 6.8 % (0.0-8.0); NEUTROPHILS ABSOLUTE AUTO 7.00 K/uL (1.80-7.70); NEUTROPHILS PERCENT AUTO 75.8 % (41.0-71.0); NRBC ABSOLUTE 0.00 K/uL (0.00-0.02); NRBC PERCENT 0.0 /100WBC (0.0-0.2); PLATELET COUNT,PLT 81 K/uL (150-400); RED BLOOD CELL COUNT 3.36 M/uL (4.10-5.30); WHITE BLOOD CELL COUNT,WBC 9.25 K/uL (3.9-11.3)
[2025-05-23] MEDS: Ketorolac 30 MG/ML SDV IVPUSH ONE (16:51)
[2025-05-23] MEDS: Iopamidol 755 Mg/ML 100 ML Bottle IVPUSH ONE (17:00)
[2025-05-23 17:33] LABS: LACTIC ACID 0.9 mmol/L (0.4-2.0)
[2025-05-23] MEDS: cefTRIAXone 1 GM in Water For Injection, Sterile 10 ML IVPUSH ONE (17:40)
[2025-05-23 17:43] LABS: A/G RATIO 0.7 (0.9-1.6); ALANINE AMINOTRANSFERASE,ALT 24 IU/L (14-63); ASPARTATE AMNIOTRANSFERASE,AST 61 IU/L (15-37); BILIRUBIN TOTAL 2.4 mg/dL (0.2-1.0); BLOOD UREA NITROGEN,BUN 7 mg/dL (7.0-18.0); CARBON DIOXIDE,CO2 22.1 mmol/L (21.0-32.0); CHLORIDE,CL 105 mmol/L (98-107); CREATININE 0.7 mg/dL (0.6-1.0); ESTIMATED GFR 98 mL/min (>60); GLUCOSE RANDOM 107 mg/dL (74-106); POTASSIUM,K 3.7 mmol/L (3.5-5.1); PROTEIN TOTAL,TP 7.8 g/dL (6.4-8.2); SODIUM,NA 139 mmol/L (136-145)
[2025-05-23 18:32] VITALS: BP 135/77; PULSE 78
== END 2025-05-23 18:31 | disposition home or self-care (01) ==
LOC: MW.ED 14:37
DX: N12 Tubulo-interstitial nephritis, not specified as acute or chronic (principal); E80.6 Other disorders of bilirubin metabolism; E86.0 Dehydration; Z87.891 Personal history of nicotine dependence; Z88.5 Allergy status to narcotic agent; Z88.8 Allergy status to other drugs, medicaments and biological substances; Z79.899 Other long term (current) drug therapy; Z75.3 Unavailability and inaccessibility of health-care facilities
CPT/HCPCS: 36415; 71045; 74177; 80053; 81001; 83605; 83690; 83735; 84484; 85025; 87086; 93005; 96361; 96374; 96375; 99284; J0696; J1885; J7030; Q9967; 87088; 87186; 93010

== ENCOUNTER 2025-06-22 15:53 | Emergency (ER) | payer MEDICAID ==
[2025-06-22] MEDS: methylPREDNISolone Sodium Succinate 125 MG/2 ML SDV IVPUSH ONE (15:54)
[2025-06-22] MEDS ORDERED: Albuterol 75 MG in Sodium Chloride 0.9% 45 ML NEB SCH (16:00)
[2025-06-22] MEDS ORDERED: Sodium Chloride 0.9% 10 ML Syringe FLUSH PRN (16:01)
[2025-06-22] MEDS ORDERED: Sodium Chloride 0.9% 2.5 ML Syringe FLUSH PRN (16:01)
[2025-06-22 16:07] LABS: BASOPHILS ABSOLUTE AUTO 0.10 K/uL (0.00-0.20); BASOPHILS PERCENT AUTO 1.5 % (0.0-1.0); EOSINOPHILS ABSOLUTE AUTO 0.13 K/uL (0.00-0.45); EOSINOPHILS PERCENT AUTO 1.9 % (0.0-6.0); IMMATURE GRAN ABSOLUTE AUTO 0.02 K/uL (0.00-0.05); IMMATURE GRAN PERCENT AUTO 0.3 % (0.0-0.4); LYMPHOCYTES ABSOLUTE AUTO 3.33 K/uL (1.00-4.80); LYMPHOCYTES PERCENT AUTO 49.4 % (24.0-44.0); MEAN PLATELET VOLUME 9.4 fL (9.4-12.3); MONOCYTES ABSOLUTE AUTO 0.37 K/uL (0.00-0.80); MONOCYTES PERCENT AUTO 5.5 % (0.0-8.0); NEUTROPHILS ABSOLUTE AUTO 2.79 K/uL (1.80-7.70); NEUTROPHILS PERCENT AUTO 41.4 % (41.0-71.0); NRBC ABSOLUTE 0.00 K/uL (0.00-0.02); NRBC PERCENT 0.0 /100WBC (0.0-0.2); PLATELET COUNT,PLT 109 K/uL (150-400); RED BLOOD CELL COUNT 3.78 M/uL (4.10-5.30); WHITE BLOOD CELL COUNT,WBC 6.74 K/uL (3.9-11.3)
[2025-06-22 16:18] LABS: BLOOD UREA NITROGEN,BUN 6.0 mg/dL (7.0-18.0); CARBON DIOXIDE,CO2 22.5 mmol/L (21.0-32.0); CHLORIDE,CL 108.0 mmol/L (98-107); CREATININE 0.6 mg/dL (0.6-1.0); EST CRCL DRUG DOSING (CG) 69.83 mL/min; GLUCOSE RANDOM 93.0 mg/dL (74-106); POTASSIUM,K 3.3 mmol/L (3.5-5.1); SODIUM,NA 144.0 mmol/L (136-145)
[2025-06-22 16:24] LABS: ESTIMATED GFR 101.0 mL/min (>60)
[2025-06-22] MEDS: Ondansetron 4 MG/2 ML SDV IVPUSH ONE (16:28)
[2025-06-23 01:33] VITALS: BP 146/61; PULSE 90
== END 2025-06-23 01:30 | disposition home or self-care (01) ==
LOC: MW.ED 15:53
DX: J98.01 Acute bronchospasm (principal); J06.9 Acute upper respiratory infection, unspecified; F10.120 Alcohol abuse with intoxication, uncomplicated; F17.200 Nicotine dependence, unspecified, uncomplicated; Z79.899 Other long term (current) drug therapy; Z88.5 Allergy status to narcotic agent
CPT/HCPCS: 36415; 71045; 80048; 80307; 85025; 87428; 93005; 96374; 96375; 99285; A9270; J2405; J2919; J7620; 99283